=== PATIENT | female | born 1930 | race African-American/Black ===

== ENCOUNTER 2017-05-01 10:12 | Outpatient (CLI) | payer MEDICARE ==
--- NOTE | 2017-05-01 16:06 | MRI ---
LUMBAR SPINE MRI WITHOUT CONTRAST: Date: 05-01-17 Comparison: 06-22-15 History: Lumbar foraminal stenosis, spondylolisthesis of lumbar region, chronic low back pain. Technique: Multiplanar, multisequence MR imaging of the lumbar spine is provided without contrast. FINDINGS: The sagittal STIR imaging demonstrates no focal area of osseous marrow edema. There is focal increased T1 and T2 signal within the L3 vertebral body, new, suggesting interval kyp hoplasty. Clinical correlation required. There is anterolisthesis of L4 on L5 assuming five lumbar type vertebral bodies, measuring in the 6 mm range, not significantly changed since the 06-22-15 exam. At T10-11 and T11-12 there is disc space narrowing and disc desiccation with disc bulge causing part ial effacement of the ventral thecal sac and mild central canal stenosis. At T10-11 there is mild bi lateral neural foraminal stenosis. At T11-12 there is severe bilateral neural foraminal stenosis. T12-L1: Mild bilateral facet hypertrophy. Intervertebral disc height and signal intensity is within normal limits. No significant central canal stenosis. L1-2: There is disc desiccation and bilateral facet hypertrophy, left greater than right. There is n o significant central canal stenosis. There is mild bilateral neural foraminal stenosis. L2-3: There is prominent facet hypertrophy and hypertrophy of the ligamentum flavum bilaterally. Thi s is a stable finding. There is stable mild central canal stenosis. Moderate bilateral neural forami nal stenosis noted, right greater than left, slightly worsened. L3-4: There is moderate bilateral facet hypertrophy, stable. There is disc space narrowing, disc julio iccation and disc bulge with a right paracentral/right foraminal disc protrusion which causes signif icant right lateral recess stenosis, stable. There is severe right sided neural foraminal stenosis, stable. There is moderate left neural foraminal stenosis, stable. L4-5: There is disc space narrowing and disc desiccation with prominent bilateral facet hypertrophy causing severe bilateral neural foraminal stenosis, stable. Stable mild neural foraminal stenosis. L5-S1: There is disc space narrowing and disc desiccation with bilateral facet hypertrophy and bilat eral neural foraminal stenosis, mild on the right and moderate on the left. No significant central c anal stenosis. There are small T2 hyperintense lesions within the right kidney, not definitely characterized on thi s examination, statistically likely representing cysts. IMPRESSION: Significant multilevel degenerative change as detailed above with multilevel prominent central canal and neural foraminal stenosis. POS: LEANDRO
== END 2017-05-01 10:13 | disposition home or self-care (01) ==
LOC: MRI 10:12
PROVIDERS: ATTEND Specialist
DX: M43.16 Spondylolisthesis, lumbar region (principal); M99.83 Other biomechanical lesions of lumbar region; M47.896 Other spondylosis, lumbar region; M51.36 Other intervertebral disc degeneration, lumbar region; M51.37 Other intervertebral disc degeneration, lumbosacral region; M48.061 Spinal stenosis, lumbar region without neurogenic claudication; M99.52 Intervertebral disc stenosis of neural canal of thoracic region; M51.34 Other intervertebral disc degeneration, thoracic region; M48.04 Spinal stenosis, thoracic region
CPT/HCPCS: 72148

== ENCOUNTER 2018-11-21 08:46 | Inpatient (IN) | payer MEDICARE ==
[2018-11-21] MEDS ORDERED: Ondansetron ODT 4 MG TAB PO PRN (13:34)
[2018-11-21] MEDS ORDERED: Acetaminophen 650 MG Suppository PR PRN (13:34)
[2018-11-21] MEDS ORDERED: Guaifenesin DM 100-10/5 ML UDCUP PO PRN (13:34)
[2018-11-21] MEDS ORDERED: Ondansetron PF 4 MG/2 ML Vial IVP PRN (13:34)
[2018-11-21] MEDS ORDERED: Senokot S 8.6-50 MG TAB PO PRN (13:34)
[2018-11-21 13:41] VITALS: BMI 36.5
[2018-11-21] MEDS ORDERED: Dextrose 5% in Water 1,000 ML IV PRN (13:53)
[2018-11-21] MEDS ORDERED: Dextrose 50% Abboject 50 ML SYRINGE SLOW IVP PRN (13:53)
[2018-11-21 15:45] LABS: Anion Gap 13 mmol/L (10-20); BUN (Urea Nitrogen) 110 mg/dL (9.8-20.1); Calc. Creatinine Clearance 22 mL/min (70-130); Carbon Dioxide 33 mmol/L (23-31); Chloride 97 mmol/L (98-107); Estimated GFR-MDRD 20; Glucose 125 mg/dL (83-110); Potassium 4.1 mmol/L (3.5-5.1); Sodium 139 mmol/L (136-145)
--- NOTE | 2018-11-21 16:33 | ULT ---
Renal ultrasound. HISTORY: 88-year-old with right-sided renal cyst. Multiple longitudinal and transverse images of the kidneys and bladder is obtained using multihertz c urvilinear transducer. Real-time and color flow images are obtained. Both kidneys are of normal contour, axis and size. Right kidney measures 8.9 and left kidney 9.5 cm f rom pole to pole. There is a small cortical cyst seen midpole right kidney measuring 17 x 15 x 17 mm. No other significant abnormality seen. Exam limited due to patient's body habitus. The urinary bladder is unremarkable. IMPRESSION: No evidence of hydronephrosis or definite masses. Transcribed Date/Time: 11/21/2018 4:44 PM
[2018-11-21] MEDS ORDERED: HYDROcodone/Acetaminophen 5/325 mg Tablet PO PRN (17:24)
[2018-11-21] MEDS ORDERED: ALPRAZolam 0.5 MG TAB PO PRN (17:24)
[2018-11-21] MEDS ORDERED: Levalbuterol HCl 1.25 MG/0.5 ML NEB NEB PRN (17:24)
[2018-11-21] MEDS ORDERED: Albuterol Sulfate 1.25 MG/3 ML NEB NEB PRN (17:24)
[2018-11-21] MEDS ORDERED: Ferrous Sulfate 325 MG TAB PO PRN (17:24)
[2018-11-21] MEDS ORDERED: Furosemide 40 MG/4 ML VIAL SLOW IVP SCH (18:30)
--- NOTE | 2018-11-21 18:55 | CON ---
DATE OF CONSULTATION: REASON FOR CONSULTATION: This is a Nephrology consult for elevated creatinine. Please note, this is a Nephrology consult. HISTORY OF PRESENT ILLNESS: This is an 88-year-old female, who was admitted to the hospital for congestive heart failure and the patient's baseline creatinine was 1.5 a few days ago, which increased to 2.8, so I was consulted. The patient can give no further detailed history. PAST MEDICAL HISTORY: Significant for hypertension, chronic kidney disease, history of type 2 diabetes mellitus, GERD, history of hyperlipidemia, history of carpal tunnel surgery, history of mitral valve repair, appendectomy, cholecystectomy, mitral valve repair, . FAMILY HISTORY: Negative for ESRD. ALLERGIES: REVIEWED. MEDICATIONS: Home medication list reviewed. Hospital medication list reviewed. REVIEW OF SYSTEMS: A 15-point review of systems was performed and negative except for positives noted above. GENERAL: HEAD: NECK: No swelling or lumps. NOSE: No epistaxis or discharge. EYES: No diplopia or pain. RESPIRATORY: CARDIOVASCULAR: GASTROINTESTINAL: /METER AND REGULATOR SHOP SUPERVISOR: MUSCULOSKELETAL: No joint pain. NEUROPSYCHIATRIC SYSTEMS: No suicidal ideation. No ideation. SKIN: Denies any rash or ulcer. CONSTITUTIONAL: No fever or chills. PHYSICAL EXAMINATION: CONSTITUTIONAL: The patient is awake and alert. VITAL SIGNS: Afebrile, pulse 69, breathing 16, and blood pressure was 125/50. GENERAL APPEARANCE AND MENTAL STATUS: Fair. HEAD/NECK: Normocephalic. Atraumatic. EYES: EOMI. No deformity. EARS: Clear. No ulcers. NOSE: Intact. No lesions. MOUTH: Clear. No discharge. THROAT: Clear. No exudate. LUNGS: Clear. No crackles. CARDIAC: S1, S2. No rub. ABDOMEN: Benign. Bowel sounds positive. GENITALIA/RECTUM: Laureano absent. BACK/EXTREMITIES: Edema 0+. NEUROLOGICAL: Alert and motor intact. SKIN: LYMPHATICS: LABORATORY DATA: Labs reviewed. ASSESSMENT AND PLAN: Acute kidney injury with chronic kidney disease stage 4 due to cardiorenal syndrome. We will hold diuretics. We will follow renal function closely. Anemia, stable. Medication based on GFR appropriate. No indication for dialysis at this time. Job ID: [id number]
--- NOTE | 2018-11-21 19:35 | CON ---
DATE OF CONSULTATION: 11/21/2018 REASON FOR CONSULTATION: Heart failure. PRIMARY HEEL REDUCER: Dr. Balderas. HISTORY OF PRESENT ILLNESS: Ms. Barraza is a very pleasant 88-year-old female, who comes to the hospital for worsening creatinine and worsening lower extremity edema. She has a history of chronic diastolic heart failure. She was admitted at the [facility] about a month ago. She was diuresed. At that time, she had a supratherapeutic INR 11. She is on warfarin for history of atrial fibrillation. She was discharged to a swing bed in [place] and Dr. Al her primary care doctor has been taking good care of her over there. Serial blood tests have shown that her creatinine has slowly been creeping up to the point where she started to get short of breath again on her p.o. dose of Lasix, so she was transferred over to the hospital for further care. PAST MEDICAL HISTORY: 1. Hypertension. 2. Hyperlipidemia. 3. Type 2 diabetes. 4. Mild coronary artery disease. 5. Chronic atrial fibrillation status post Maze procedure. 6. Severe mitral regurgitation status post mitral valve ring annuloplasty. 7. Chronic diastolic heart failure. 8. Pulmonary hypertension from right heart catheterization with pulmonary pressures in the 70s. 9. Peripheral vascular disease. 10. Pulmonary embolism in the past. 11. Sleep apnea. 12. Renal cyst. 13. Lower back pain. 14. Chronic anemia on iron supplementation. 15. Obesity. PAST SURGICAL HISTORY: 1. Appendectomy. 2. Cholecystectomy. 3. Mitral ring annuloplasty in February of 2009 showed 23 mm Lamb ring. 4. Left-sided Maze procedure at the time of mitral valve annuloplasty. FAMILY HISTORY: Brother with non-Q wave MIs. Father with lung cancer. Sister with breast cancer. Two brothers with type 2 diabetes. SOCIAL HISTORY: No alcohol, tobacco, or drugs. REVIEW OF SYSTEMS: A 12-point review of systems was done and was all negative unless stated in history of present illness. OUTPATIENT MEDICATIONS: 1. Hydralazine 25 mg p.o. t.i.d. 2. Warfarin 7.5 mg a day. 3. Simvastatin 20 mg at bedtime. 4. Sertraline 100 mg a day. 5. Potassium chloride 10 mEq a day. 6. Protonix 40 mg a day. 7. Benicar 20 mg a day. 8. Xopenex. 9. Latanoprost. 10. Isosorbide mononitrate 10 mg b.i.d. 11. Lantus 8 units subcu at bedtime. 12. [place] 5/325 p.r.n. pain. 13. Lasix 40 mg a day. 14. Ferrous sulfate 325 mg b.i.d. 15. Felodipine 2.5 mg a day. 16. Esomeprazole 40 mg a day. 17. Carvedilol 12.5 mg b.i.d. 18. Aspirin 81 a day. 19. Albuterol p.r.n. 20. Tylenol p.r.n. 21. Xanax p.r.n. ALLERGIES: 1. AMBRISENTAN. 2. BOSENTAN. 3. DIPHENHYDRAMINE. 4. ISOSORBIDE DINITRATE. 5. METFORMIN. 6. RIOCIGUAT. 7. SILDENAFIL. 8. TADALAFIL. PHYSICAL EXAMINATION: VITAL SIGNS: Temperature 98.0, pulse 87, respiratory rate 22, saturation 96% on 2 L, and blood pressure 136/63. GENERAL: Awake, alert, oriented x3. No distress. HEENT: Normocephalic and atraumatic. NECK: Supple. LUNGS: Clear. CARDIOVASCULAR: S1 and S2. Irregularly irregular heart rate in the 60s. ABDOMEN: Soft. Positive bowel sounds. EXTREMITIES: 1+ edema. SKIN: Warm and dry. LABORATORY DATA: Laboratory work was reviewed here in the hospital. Sodium 139, potassium 4.1, chloride 97, carbon dioxide of 33, anion gap 13, BUN of 110, creatinine of 2.74, GFR of 20, glucose of 125, calcium 9.0. Most recent blood work at the swing bed was reviewed. Her hemoglobin has been 9.8 down to 8.7 now. INR has been 3.2 today, 2.8 yesterday. Chemistry, her creatinine has trended from 1.26 on admission up to 2.74 now. BUN was 28 on admission up to 110. BNP yesterday was 758. This was in the 1000 range on admission. EKG was reviewed. Renal ultrasound was reviewed. ASSESSMENT/PLAN: 1. Acute on chronic diastolic heart failure. 2. Pulmonary hypertension. 3. Status post mitral valve ring annuloplasty. 4. Chronic atrial fibrillation, rate controlled. 5. Chronic warfarin use. 6. Recent supratherapeutic INR normal now. 7. Mild coronary artery disease. PLAN: We will give her one dose of Lasix as more than likely she is reaccumulating some fluid. Depending on how she reacts to this and what the echocardiogram shows, we will decide on further therapies. If she does not respond to IV Lasix and this is all cardiorenal, she may need a Milrinone drip to improve her pulmonary status as well as forward flow. At this time, hopefully IV Lasix will do the trick. Thank you for letting me to participate in the care of your patient. We will follow. Job ID: [id number]
--- NOTE | 2018-11-21 19:46 | RAD ---
PORTABLE AP CHEST X-RAY: 11/21/18 HISTORY: Shortness of breath. COMPARISON: 09/01/16. FINDINGS: Postsurgical changes related to median sternotomy and cardiac valve replacement are again noted. The cardiac silhouette is enlarged. Pulmonary vasculature is mildly increased. There is mild elevation ri ght hemidiaphragm. Osteopenia is present. IMPRESSION: 1. Cardiomegaly with pulmonary vasculature mildly increased although accentuated by the techniqu e of the exam. 2. Osteopenia. POS: RUDY
--- NOTE | 2018-11-21 20:11 | HP ---
PRIMARY CARE PHYSICIAN: Dr. Al. CHIEF COMPLAINT: Fluid retention. HISTORY OF PRESENT ILLNESS: This is an 88-year-old female with a known history of diastolic congestive heart failure, pulmonary artery hypertension, on home O2, and atrial fibrillation, on chronic Coumadin also with previous pulmonary embolism, on chronic Coumadin, who is directly admitted here from swing bed in [place]. The patient was hospitalized at [facility] in the last month for 5 days for congestive heart failure exacerbation. She was diuresed and then discharged to [facility] for physical therapy due to deconditioning. Dr. Al has been taking care of her there. He stated that he has had trouble continuing her diuresis there and had to add metolazone, but the patient was continuing to retain fluid. Then, the patient had increased creatinine there noted over the last couple of days. He is concerned about cardiorenal syndrome, unresponsive to diuretics and so admitted her over here. He tried to send her to [facility], but they are out of beds. The patient currently is saturating well on her normal home oxygen. She reports some shortness of breath with exertion, but says she is a lot better than when she went into the [facility] originally. She denies drinking a lot of fluid, though looking through her records at [place], the last couple of days, she has had over 2000 mL per day of oral fluids. She has had a couple of days where she had more out than in, but then over the last couple of days, she has had more in than out. There was a jump in her weight from yesterday to today of 4 pounds noted in [place] records, although when we weighed her here when she got here, she was still at 219 pounds, which is what she weighed a couple of days ago at [place]. The patient reports that her lower extremity edema is significantly better than it was in [facility]. No other specific complaints. PAST MEDICAL HISTORY: 1. Chronic diastolic congestive heart failure. 2. Coronary artery disease. 3. Previous mitral valve repair. 4. Pulmonary hypertension. 5. Previous pulmonary embolism. 6. Paroxysmal atrial fibrillation, rate controlled. 7. Hypertension. 8. Hyperlipidemia. 9. Diabetes mellitus type 2, on a small dose of insulin daily. 10. Obstructive sleep apnea, on nighttime CPAP. 11. Chronic kidney disease, stage 3. PAST SURGICAL HISTORY: Mitral valve repair. SOCIAL HISTORY: The patient denies tobacco, alcohol, or illicit drug use. She is a , lives with her daughter, Angle Acosta, who is present at the bedside. ALLERGIES: 1. LETAIRIS. 2. TRACLEER. 3. BENADRYL. 4. ISOSORBIDE. 5. METFORMIN. 6. ADEMPAS. 7. SILDENAFIL. 8. TADALAFIL. CURRENT MEDICATIONS: 1. Acetaminophen as needed. 2. Albuterol sulfate neb as needed. 3. Xanax 0.25 mg every 24 hours as needed. 4. Aspirin 81 mg daily. 5. Atorvastatin 10 mg at night. 6. Debrox one drop in left ear twice a day. 7. Carvedilol 12.5 mg twice a day. 8. Felodipine 2.5 mg daily. 9. Ferrous sulfate 325 mg twice a day. 10. Fluconazole nasal spray daily. 11. Furosemide 40 mg twice a day. 12. Hydralazine 50 mg 3 times a day. 13. Hydrocodone as needed. 14. Lantus 10 units subcu at night, decreased to 8 units subcu at night while in the hospital recently. 15. Isosorbide mononitrate 10 mg twice a day. 16. Latanoprost one drop in each eye at night. 17. Imodium as needed. 18. Loratadine 10 mg daily. 19. Metolazone previously on 5 mg Monday, Monday, and Monday, discontinued today. 20. Benicar 20 mg daily. 21. Protonix 40 mg daily. 22. Potassium chloride 10 mEq daily. 23. Prednisone given for the last 2 to 3 days for an effusion in her ear. 24. Sertraline 100 mg daily. 25. Warfarin 7.5 mg at night. REVIEW OF SYSTEMS: CONSTITUTIONAL: No fevers, no chills. EYES: No double vision or blurred vision. ENT: No congestion or drainage. She has had a little bit of sore throat. CARDIOVASCULAR: No chest pain. No palpitations or racing heart. PULMONARY: She has had chronic cough for some time now, production of little bit of sputum, not necessarily worse recently. She has shortness of breath with exertion as per HPI. GASTROINTESTINAL: She had some little midepigastric abdominal pain on and off for the last few days. No nausea or vomiting. She was not having bowel movements until today when she had a very large bowel movement. No diarrhea. GENITOURINARY: No dysuria or hematuria. MUSCULOSKELETAL: She has chronic back pain. No other musculoskeletal complaints. SKIN: No rashes or lesions noted. NEUROLOGIC: No numbness, tingling, or focal weakness. PHYSICAL EXAMINATION: VITAL SIGNS: Blood pressure 125/58, pulse 59, respirations 22, O2 saturation 98% on 2 L, and temperature 97.8. GENERAL: This is a well-developed, well-nourished female, in no acute distress, on 2 L of oxygen. HEENT: Pupils are equal, round, and reactive to light. Oropharynx is clear without lesions, erythema, or exudate. NECK: Supple. No lymphadenopathy. No thyroid nodules or enlargement. She has massive right jugular venous distention, and she has mild on the left. CARDIOVASCULAR: Regular rate and rhythm. No murmurs, rubs, or gallops. LUNGS: The patient has occasional crackle in bilateral bases, but otherwise good air movement throughout. No increased work of breathing. No wheezing. STOMACH: Soft, nontender to palpation. Normoactive bowel sounds. No hepatosplenomegaly or other masses. EXTREMITIES: No clubbing or cyanosis. She has trace bilateral lower extremity edema. This is noted to be markedly better than when she was in the hospital per the daughter, who is at the bedside. SKIN: No rashes or other lesions noted. NEUROLOGIC: She has intact strength and sensation in all extremities. No facial droop noted. LABORATORY DATA: Done last night, her CMP showed chloride of 97, BUN of 101, creatinine of 2.8. Her previous BUN had been anywhere between 20 and 40. It jumped from 23rd of last month to when it was checked last night, and creatinine has jumped over the last few days from 1.6 up to 2.8, glucose of 188. The rest of the CMP was normal. Brain natriuretic peptide was elevated at 758, checked today. Previously, it had been in the 200 to 300s. Our most recent check though in our system was from 2018. CBC done yesterday shows normal white blood cell count, hemoglobin of 8.7, hematocrit of 28.6. These are stable from previous checks. Does have a large MCV of 105. Platelet count is normal. Coagulation profile shows INR 3.2, up from 2.8 yesterday. Urinalysis done yesterday showed trace leukocyte esterase, but no white blood cells and no bacteria. There was a urine urea checked, it was 359, urine creatinine is 66. The patient had abdominal x-ray done yesterday. This showed no acute findings except for a moderate amount of fecal material seen in the right colon. ASSESSMENT: 1. Acute on chronic renal failure typically stage 3. The patient appears to have volume contraction, most likely has actually been over diuresed with metolazone. I do not see any evidence on her exam that her being in volume overload or having retained multiple liters of fluid over the last day. I suspect that the scale was incorrect and that she actually was still just at 219 pounds that she had measured a few days ago. It does not look like the patient will be able to tolerate the metolazone. We will discontinue that. We will also hold the Lasix today, but likely resume tomorrow. We will have Dr. Reveles come and evaluate the patient and see what he thinks about her volume status and her kidney function. 2. Diastolic congestive heart failure with recent exacerbation. She actually does not appear in fluid overload to me, and per the daughter, it is much better than she was in the hospital. I think most likely she has actually been diuresed well and actually over diuresed. We will hold diuretics today and reassess in the morning, likely restart her Lasix at that time. The patient has been taking in a good amount of fluid orally if what is recorded from [place] is accurate, so we will need to have her decrease that. We will put her on a 1500 mL restricted diet and strict I's and O's. I will have Dr. Maria come by and evaluate her and see if he has any other recommendations from her heart failure standpoint. 3. Chronic anticoagulation with supratherapeutic INR. We will hold Coumadin today and recheck in the morning. 4. Diabetes mellitus type 2. We will resume the patient's Lantus at night, and we will put her on insulin sliding scale along with q.a.c. and h.s. blood sugars and give her a diabetic diet. 5. Epigastric abdominal pain, possibly reflux or gastritis related to her recent prednisone. We will discontinue the prednisone, and we will start her on Pepcid twice a day. If this does not improve her symptoms, we will switch to a PPI. 6. Deep venous thrombosis prophylaxis. The patient is already on Coumadin. 7. Pulmonary hypertension with chronic respiratory failure and hypoxia. We will continue the patient's home 2 L of oxygen. 8. Obstructive sleep apnea. We will continue CPAP at night. 9. Code status. I did discuss this with the patient. She is a full code. Should she be incapacitated, her daughter would be her medical decision maker, her name is Anglealyse Acosta. Job ID: [id number]
[2018-11-21] MEDS ORDERED: Insulin Glargine 8 UNITS in Pre-Filled Syringe 1 EACH SC SCH (21:00)
[2018-11-21] MEDS ORDERED: Famotidine 20 MG TAB PO SCH (21:00)
[2018-11-21] MEDS: hydrALAZINE 25 MG TAB PO SCH (21:29)
[2018-11-21] MEDS: Isosorbide Mononitrate 20 MG TAB PO SCH (21:30)
[2018-11-21] MEDS: Atorvastatin Calcium 10 MG TAB PO SCH (21:30)
[2018-11-21] MEDS: Famotidine 20 MG TAB PO SCH (21:30)
[2018-11-21] MEDS: Latanoprost 0.005% Ophth Soln 2.5 ml Bottle EA EYE SCH (21:32)
[2018-11-21] MEDS: Carvedilol 6.25 MG TAB PO SCH (21:32)
[2018-11-21] MEDS: Insulin Glargine 8 UNITS in Pre-Filled Syringe 1 EACH SC SCH (21:46)
[2018-11-22 04:56] LABS: Anion Gap 13 mmol/L (10-20); BUN (Urea Nitrogen) 112 mg/dL (9.8-20.1); Calc. Creatinine Clearance 25 mL/min (70-130); Calcium 8.6 mg/dL (7.8-10.44); Carbon Dioxide 31 mmol/L (23-31); Chloride 97 mmol/L (98-107); Estimated GFR-MDRD 23; Glucose 67 mg/dL (83-110); Sodium 137 mmol/L (136-145)
--- NOTE | 2018-11-22 07:42 | PDOC.PN ---
- Subjective Encounter Start Date: 11/22/18 Encounter Start Time: 09:50 Subjective: Patient sleepy this AM, no other complaints. Diuresed some overnight. -: No chest pain. No SOB. No cough. - Objective Resuscitation Status - Order Detail: 11/21/18 13:34 Resuscitation Status Routine Resuscitation Status: FULL: Full Resuscitation Discussed with: Eleuterio TYSON Reviewed: Yes Vital Signs & Weight: Vital Signs (12 hours) Temp Pulse Resp BP BP BP Pulse Ox 11/22/18 03:45 97.9 F 57 L 22 H 124/57 L 99 11/21/18 21:32 144/65 H 11/21/18 21:29 53 L 144/65 H 11/21/18 21:00 98.0 F 53 L 20 144/65 H 97 11/21/18 20:00 97 Weight Weight 219 lb 11.2 oz I&O: 11/21/18 11/22/18 11/23/18 06:59 06:59 06:59 Intake Total 600 Output Total 1150 Balance -550 Result Diagrams: 11/22/18 08:57 11/22/18 04:21 Additional Labs: Accuchecks 11/22/18 11/21/18 11/21/18 05:38 21:37 17:27 POC Glucose 78 143 H 144 H Phys Exam - Physical Examination Constitutional: NAD HEENT: moist MMs Respiratory: no wheezing, no rales, no rhonchi Cardiovascular: RRR Gastrointestinal: soft, positive bowel sounds mild edema bilateral LE Neurological: non-focal Psychiatric: normal affect, A&O x 3 Dx/Plan (1) Acute on chronic diastolic (congestive) heart failure Code(s): I50.33 - ACUTE ON CHRONIC DIASTOLIC (CONGESTIVE) HEART FAILURE Status : Acute (2) Cardiorenal syndrome with renal failure Code(s): I13.10 - HYP HRT & CHR KDNY DIS W/O HRT FAIL, W STG 1-4/UNSP CHR KDNY Status: Acute Comment: stage 3, improved a bit today (3) Coronary artery disease Code(s): I25.10 - ATHSCL HEART DISEASE OF [place] CORONARY ARTERY W/O ANG PCTRS Status: Chronic (4) Pulmonary artery hypertension Code(s): I27.21 - SECONDARY PULMONARY ARTERIAL HYPERTENSION Status: Chronic (5) Hx pulmonary embolism Code(s): Z86.711 - PERSONAL HISTORY OF PULMONARY EMBOLISM Status: Chronic (6) Paroxysmal atrial fibrillation Code(s): I48.0 - PAROXYSMAL ATRIAL FIBRILLATION Status: Chronic Comment: on Coumadin, pharmacy dosing (7) Hypertension Code(s): I10 - ESSENTIAL (PRIMARY) HYPERTENSION Status: Chronic Qualifiers: Hypertension type: essential hypertension Qualified Code(s): I10 - Essential (primary) hypertension (8) Hyperlipidemia Code(s): E78.5 - HYPERLIPIDEMIA, UNSPECIFIED Status: Chronic (9) Diabetes mellitus type 2, insulin dependent Code(s): E11.9 - TYPE 2 DIABETES MELLITUS WITHOUT COMPLICATIONS; Z79.4 - CATERING TRUCK OPERATOR (CURRENT) USE OF INSULIN Status: Chronic (10) TONJA on CPAP Code(s): G47.33 - OBSTRUCTIVE SLEEP APNEA (ADULT) (PEDIATRIC); Z99.89 - DEPENDENCE ON OTHER ENABLING MACHINES AND DEVICES Status: Chronic - Plan cont current plan of care, PT/OT, DVT proph w/SCDs continue diuresis as tolerated * . - Discharge Day Encounter end time: 10:00
[2018-11-22] MEDS: Isosorbide Mononitrate 20 MG TAB PO SCH ×2 (08:37→20:33)
[2018-11-22] MEDS: Carvedilol 6.25 MG TAB PO SCH ×3 (08:37→20:35)
[2018-11-22] MEDS: hydrALAZINE 25 MG TAB PO SCH ×3 (08:37→20:34)
[2018-11-22] MEDS: Aspirin 81 mg Enteric Coated Tablet PO SCH (08:38)
[2018-11-22] MEDS ORDERED: FELODIPINE 2.5 MG PO SCH (09:00)
[2018-11-22 09:15] LABS: INR-International Normal Ratio 2.7; Prothrombin Time 28.4 SEC (12.0-14.7)
[2018-11-22 09:26] LABS: Hemoglobin 8.9 g/dL (12.0-16.0); Mean Corpuscular HGB CONC 31.9 g/dL (32.0-36.0); Mean Corpuscular Hemoglobin 33.4 pg (27.0-31.0); Platelet Count 172 thou/uL (130-400); RBC Distribution Width 12.8 % (11.5-14.5); Red Blood Cell (RBC) Count 2.65 mill/uL (4.20-5.40); White Blood Cell (WBC) Count 5.4 thou/uL (4.8-10.8)
[2018-11-22 09:27] LABS: #Eosinphils 0.3 thou/uL (0.0-0.7); #Lymphocytes 1.3 thou/uL (1.20-3.40); #Monocytes 0.7 thou/uL (0.11-0.59); #Neutrophils 3.1 thou/uL (1.40-6.50); %Basophils 0.6 % (0.0-1.0); %Eosinophils 5.2 % (0.0-10.0); %Lymphocytes 23.3 % (21.0-51.0); %Monocytes 13.8 % (0.0-10.0); %Neutrophils 57.1 % (42.0-75.0)
[2018-11-22] MEDS ORDERED: Furosemide 40 MG/4 ML VIAL SLOW IVP SCH (09:45)
[2018-11-22 09:55] LABS: Hypochromia MODERATE=16-30 cells (100X) (0-5/hpf); MDiff Complete? YES; Macrocytosis SLIGHT = 6-15 cells (100X) (0-5/hpf); Platelet Morphology Comment Appears Adequate; Reflex for Review?? YES
[2018-11-22] MEDS: Warfarin Sodium 3 MG TAB PO SCH ×2 (10:40→15:27)
--- NOTE | 2018-11-22 12:41 | PRG ---
DATE OF SERVICE: 11/22/2018 SUBJECTIVE: An 88-year-old female being seen for acute kidney. The patient denied nausea and chest pain. OBJECTIVE: CONSTITUTIONAL: The patient is awake and alert. VITAL SIGNS: The patient is afebrile, pulse 80, breathing 16, blood pressure 128/64. GENERAL APPEARANCE AND MENTAL STATUS: Fair. HEAD/NECK: Normocephalic. Atraumatic. EYES: EOMI. No deformity. EARS: Clear. No ulcers. NOSE: Intact. No lesions. MOUTH: Clear. No discharge. THROAT: Clear. No exudate. LUNGS: Clear. No crackles. CARDIAC: S1, S2. No rub. ABDOMEN: Benign. Bowel sounds positive. GENITALIA/RECTUM: Laureano absent. BACK/EXTREMITIES: Edema 0+. NEUROLOGICAL: Alert and motor intact. SKIN: LYMPHATICS: LABORATORY DATA: creatinine 2.4. ASSESSMENT: 1. Acute kidney injury, improved. 2. Chronic kidney disease stage 4, stable. 3. . 4. Anemia stable. 5. No indication for dialysis. Job ID: [id number]
[2018-11-22] MEDS: Furosemide 40 MG/4 ML VIAL SLOW IVP SCH (14:31)
[2018-11-22] MEDS: Acetaminophen 325 MG TAB PO PRN (15:26)
--- NOTE | 2018-11-22 19:10 | PDOC.CTH ---
Cardiology Progress Note - Subjective Edema and creatinine improved with IV diuresis. She has no new issues otherwise. - Objective Vital Signs Temp Pulse Pulse Pulse Pulse Resp BP 11/22/18 14:49 97.6 F 58 L 18 11/22/18 14:40 53 L 53 L 11/22/18 14:31 54 L 128/64 11/22/18 11:19 128/64 11/22/18 11:18 80 11/22/18 11:00 97.1 F L 80 76 121 H 76 18 11/22/18 08:38 56 L 11/22/18 08:37 56 L 128/64 11/22/18 08:00 BP BP BP BP BP Pulse Ox Pulse Ox 11/22/18 14:49 123/63 95 11/22/18 14:40 122/54 L 141/63 H 11/22/18 14:31 11/22/18 11:19 11/22/18 11:18 11/22/18 11:00 133/62 133/60 166/79 H 133/60 94 L 97 11/22/18 08:38 11/22/18 08:37 11/22/18 08:00 91 L Pulse Ox Pulse Ox 11/22/18 14:49 11/22/18 14:40 97 11/22/18 14:31 11/22/18 11:19 11/22/18 11:18 11/22/18 11:00 96 90 L 11/22/18 08:38 11/22/18 08:37 11/22/18 08:00 Weight 219 lb 11.2 oz 11/21/18 11/22/18 11/23/18 06:59 06:59 06:59 Intake Total 600 640 Output Total 1150 1150 Balance -550 -510 - Physical Examination General/Neuro: NAD Neck: no JVD present Lungs: CTA, unlabored respirations Heart: RRR Abdomen: NT/ND Extremities: + edema B (1+) - Telemetry Telemetry Rhythm: Afib HR 70's. - Labs Result Diagrams: 11/22/18 08:57 11/22/18 04:21 - Assessment/Plan 1. Acute on chronic diastolic CHF 2. Severe MR 3. Severe TR 4. Chronic afib 5. GUI on CKD, cardiorenal. 6. Anemia. PLAN: - Continue IV diuresis. - Continue other meds.
[2018-11-22] MEDS: Famotidine 20 MG TAB PO SCH (20:34)
[2018-11-22] MEDS: Atorvastatin Calcium 10 MG TAB PO SCH (20:34)
[2018-11-22] MEDS: Insulin Glargine 8 UNITS in Pre-Filled Syringe 1 EACH SC SCH (20:35)
[2018-11-22] MEDS: Latanoprost 0.005% Ophth Soln 2.5 ml Bottle EA EYE SCH (20:36)
[2018-11-23 05:19] LABS: INR-International Normal Ratio 2.5
[2018-11-23] MEDS: Furosemide 40 MG/4 ML VIAL SLOW IVP SCH ×2 (06:35→14:53)
[2018-11-23] MEDS ORDERED: Senokot S 8.6-50 MG TAB PO PRN (06:57)
[2018-11-23 08:00] LABS: Albumin 3.5 g/dL (3.4-4.8); BUN (Urea Nitrogen) 100 mg/dL (9.8-20.1); BUN/Creatinine Ratio 53.76; Calc. Creatinine Clearance 33 mL/min (70-130); Calcium 9.2 mg/dL (7.8-10.44); Estimated GFR-MDRD 31; Glucose 72 mg/dL (83-110); Magnesium 2.6 mg/dL (1.6-2.6); Phosphorus 4.5 mg/dL (2.3-4.7)
[2018-11-23 08:09] LABS: Anion Gap 16 mmol/L (10-20); Carbon Dioxide 32 mmol/L (23-31); Chloride 97 mmol/L (98-107); Potassium 3.9 mmol/L (3.5-5.1); Sodium 141 mmol/L (136-145)
[2018-11-23] MEDS: Calcium Carbonate + Vit D 1 TAB PO SCH ×2 (08:55→17:22)
[2018-11-23] MEDS: Aspirin 81 mg Enteric Coated Tablet PO SCH (08:56)
[2018-11-23] MEDS: Senokot S 8.6-50 MG TAB PO SCH ×3 (08:57→20:27)
[2018-11-23] MEDS: Isosorbide Mononitrate 20 MG TAB PO SCH ×2 (08:57→20:27)
[2018-11-23] MEDS: hydrALAZINE 25 MG TAB PO SCH ×3 (08:58→20:26)
[2018-11-23] MEDS: Carvedilol 6.25 MG TAB PO SCH ×2 (10:08→20:26)
--- NOTE | 2018-11-23 12:55 | PRG ---
DATE OF SERVICE: 11/23/2018 SUBJECTIVE: An 88-year-old female being seen for acute kidney injury. The patient denies any nausea, vomiting, or chest pain. OBJECTIVE: CONSTITUTIONAL: The patient is awake, alert. GENERAL APPEARANCE AND MENTAL STATUS: Fair. VITAL SIGNS: Afebrile, pulse 80, breathing 16, blood pressure 156/70. HEAD/NECK: Normocephalic. Atraumatic. EYES: EOMI. No deformity. EARS: Clear. No ulcers. NOSE: Intact. No lesions. MOUTH: Clear. No discharge. THROAT: Clear. No exudate. LUNGS: Clear. No crackles. CARDIAC: S1, S2. No rub. ABDOMEN: Benign. Bowel sounds positive. GENITALIA/RECTUM: Laureano absent. BACK/EXTREMITIES: Edema 0+. NEUROLOGICAL: Alert and motor intact. SKIN: LYMPHATICS: LABORATORY DATA: Reviewed. ASSESSMENT AND PLAN: 1. Chronic kidney disease, stage 3, stable. 2. Acute kidney injury due to acute tubular necrosis, improved. 3. Hypertension with anemia, stable. 4. Medications based on GFR, appropriate. Job ID: [id number]
--- NOTE | 2018-11-23 16:24 | PDOC.PN ---
- Subjective Encounter Start Date: 11/23/18 Encounter Start Time: 14:30 Patient seen and examined for CHF/GUI. SOB improving. No fever/chills/CP. No new complaints. No overnight events - Objective Resuscitation Status - Order Detail: 11/21/18 13:34 Resuscitation Status Routine Resuscitation Status: FULL: Full Resuscitation Discussed with: Patient MARBELLA Reviewed: Yes Vital Signs & Weight: Vital Signs (12 hours) Temp Pulse Resp BP Pulse Ox 11/23/18 15:02 98.2 F 67 20 141/62 H 97 11/23/18 12:45 98.0 F 62 20 112/58 L 96 11/23/18 10:08 76 11/23/18 08:55 88 11/23/18 07:18 98.2 F 66 18 163/70 H 97 Weight Weight 219 lb 14.4 oz I&O: 11/22/18 11/23/18 11/24/18 06:59 06:59 06:59 Intake Total 600 840 Output Total 1150 1950 Balance -550 -1110 Result Diagrams: 11/22/18 08:57 11/23/18 07:29 Additional Labs: Accuchecks 11/23/18 11/23/18 11/22/18 11:00 05:22 20:36 POC Glucose 141 H 72 175 H EKG Reviewed by me: Yes (Tele SR) Phys Exam - Physical Examination Constitutional: NAD Respiratory: no wheezing, no rhonchi few rales at bases Cardiovascular: RRR, no rub Gastrointestinal: soft, non-tender, positive bowel sounds Musculoskeletal: no edema Neurological: moves all 4 limbs Dx/Plan - Plan DVT proph w/SCDs IMPRESSION: GUI on CKD 3 due to Cardiorenal syndrome Acute on chronic diastolic heart failure Severe MR/TR Chronic Afib - on anticoag Anemia DM2 Chronic 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 negative: Cough, Dry, Shortness of Breath, Hemoptysis, Pleuritic Pain, Sputum, Wheezing Cardiovascular: negative: chest pain, palpitations, orthopnea, paroxysmal nocturnal dyspnea, edema, light headedness, other - Medications/Allergies Allergies/Adverse Reactions: Allergies Allergy/AdvReac Type Severity Reaction Status Date / Time ambrisentan [From Letairis] Allergy Verified 11/07/18 15:25 bosentan [From Tracleer] Allergy Verified 11/07/18 15:25 diphenhydramine Allergy Nausea Verified 11/07/18 15:27 [From Benadryl] isosorbide [From BiDil] Allergy Verified 11/07/18 15:38 metformin Allergy Nausea Verified 11/07/18 15:28 riociguat [From Adempas] Allergy Verified 11/07/18 15:27 sildenafil [From Revatio] Allergy Verified 11/07/18 15:25 tadalafil [From Adcirca] Allergy Verified 11/07/18 15:25 Medications: Current Medications Acetaminophen (Tylenol) 650 mg PO Q4H PRN PRN Reason: Headache/Fever/Mild Pain (1-3) Last Admin: 11/22/18 15:26 Dose: 650 mg Acetaminophen (Tylenol) 650 mg AK Q4H PRN PRN Reason: Headache/Fever/Mild Pain (1-3) Hydrocodone Bitart/Acetaminophen ([place] 5/325) 2 tab PO Q4H PRN PRN Reason: Moderate Pain (4-6) Albuterol Sulfate (Albuterol Sulfate) 1.25 mg NEB Q6H PRN PRN Reason: SHORTNESS OF BREATH Alprazolam (Xanax) 0.25 mg PO Q24H PRN PRN Reason: Anxiety/Restlessness/Sleep Aspirin (Ecotrin) 81 mg PO DAILY [facility] Last Admin: 11/23/18 08:56 Dose: 81 mg Atorvastatin Calcium (Lipitor) 10 mg PO HS [facility] Last Admin: 11/22/18 20:34 Dose: 10 mg Calcium/Vitamin D (Caltrate 600 + Vit D) 1 tab PO BID-WM [facility] Last Admin: 11/23/18 08:55 Dose: 1 tab Carvedilol (Coreg) 12.5 mg PO BID [facility] Last Admin: 11/23/18 10:08 Dose: 12.5 mg Dextrose/Water (Dextrose 50%) 25 gm SLOW IVP PRN PRN PRN Reason: Hypoglycemia Famotidine (Pepcid) 20 mg PO 2100 [facility] Last Admin: 11/22/18 20:34 Dose: 20 mg Felodipine (Plendil) 2.5 mg PO DAILY [facility] Last Admin: 11/23/18 10:08 Dose: 2.5 mg Ferrous Sulfate (Feosol) 325 mg PO BID-WM PRN PRN Reason: ANEMIA Furosemide (Lasix) 40 mg SLOW IVP 0600,1400 [facility] Last Admin: 11/23/18 14:53 Dose: 40 mg Glucagon (Glucagon) 1 mg IM PRN PRN PRN Reason: Hypoglycemia Guaifenesin/Dextromethorphan (Robitussin Dm) 15 ml PO Q4H PRN PRN Reason: Cough Hydralazine HCl (Apresoline) 25 mg PO TID [facility] Last Admin: 11/23/18 15:02 Dose: 25 mg Dextrose/Water (D5w) 1,000 mls @ 0 mls/hr IV .Q0M PRN PRN Reason: Hypoglycemia Insulin Human Lispro (Humalog) 0 units SC .MILD SLIDING SCALE PRN PRN Reason: Mild Correctional Scale Insulin Human Lispro (Humalog) 0 units SC .BEDTIME SLIDING SC PRN PRN Reason: Bedtime Correctional Scale Isosorbide Mononitrate (Ismo) 10 mg PO BID [facility] Last Admin: 11/23/18 08:57 Dose: 10 mg Latanoprost (Xalatan 0.005% Ophth Soln) 1 drop EA EYE HS [facility] Last Admin: 11/22/18 20:36 Dose: 1 drop Levalbuterol HCl (Xopenex Conc) 1.25 mg NEB Q8H PRN PRN Reason: SHORTNESS OF BREATH Miscellaneous Medication (Pharmacy To Dose) 0 each PO .WARFARIN PRN PRN Reason: LABS Ondansetron HCl (Zofran Odt) 4 mg PO Q6H PRN PRN Reason: Nausea/Vomiting Ondansetron HCl (Zofran) 4 mg IVP Q6H PRN PRN Reason: Nausea/Vomiting Pantoprazole Sodium (Protonix) 40 mg PO DAILY [facility] Last Admin: 11/23/18 08:57 Dose: 40 mg Senna/Docusate Sodium (Senokot S) 1 tab PO BID [facility] Last Admin: 11/23/18 08:57 Dose: 1 tab Senna/Docusate Sodium (Senokot S) 1 tab PO BID PRN PRN Reason: Constipation Sertraline HCl (Zoloft) 100 mg PO DAILY [facility] Last Admin: 11/23/18 08:55 Dose: 100 mg Sodium Chloride (Flush - Normal Saline) 10 ml IVF Q12HR [facility] Last Admin: 11/23/18 10:10 Dose: 10 ml Sodium Chloride (Flush - Normal Saline) 10 ml IVF PRN PRN PRN Reason: Saline Flush Warfarin Sodium (Coumadin) 6 mg PO 1700 [facility] Last Admin: 11/22/18 15:27 Dose: 6 mg
--- NOTE | 2018-11-23 16:56 | PDOC.CTH ---
Cardiology Progress Note - Subjective No new issues. Swelling significantly improved. - Objective Vital Signs Temp Pulse Resp BP Pulse Ox 11/23/18 15:02 98.2 F 67 20 141/62 H 97 11/23/18 12:45 98.0 F 62 20 112/58 L 96 11/23/18 10:08 76 11/23/18 08:55 88 11/23/18 07:18 98.2 F 66 18 163/70 H 97 Weight 219 lb 14.4 oz 11/22/18 11/23/18 11/24/18 06:59 06:59 06:59 Intake Total 600 840 Output Total 1150 1950 Balance -550 -1110 - Physical Examination General/Neuro: alert & oriented x3, NAD Neck: no JVD present Lungs: CTA, unlabored respirations Heart: RRR Abdomen: NT/ND Extremities: + edema B (trace) - Telemetry Telemetry Rhythm: Afib HR 60's. - Labs Result Diagrams: 11/22/18 08:57 11/23/18 07:29 - Assessment/Plan 1. Acute on chronic diastolic CHF 2. Severe MR 3. Severe TR 4. Chronic afib 5. GUI on CKD, cardiorenal. 6. Anemia. PLAN: - Continue IV diuresis. - Improving. - Continue other meds. - Close to being able to be sent back to rehab, probably next 48 hrs.
[2018-11-23] MEDS: Warfarin Sodium 3 MG TAB PO SCH (17:22)
[2018-11-23] MEDS: HumaLOG 300 UNITS/3 ML VIAL SC PRN ×2 (17:22→20:32)
[2018-11-23] MEDS: Atorvastatin Calcium 10 MG TAB PO SCH (20:26)
[2018-11-23] MEDS: Famotidine 20 MG TAB PO SCH (20:26)
[2018-11-23] MEDS: Latanoprost 0.005% Ophth Soln 2.5 ml Bottle EA EYE SCH (20:27)
[2018-11-23] MEDS ORDERED: Insulin Glargine 5 UNITS in Pre-Filled Syringe 1 EACH SC SCH (21:00)
[2018-11-23] MEDS ORDERED: Sodium Chloride For Inhalation 0.9% 3 ML NEB NEB PRN (23:57)
[2018-11-24 06:23] LABS: INR-International Normal Ratio 2.2; Prothrombin Time 24.8 SEC (12.0-14.7)
[2018-11-24] MEDS: Furosemide 40 MG/4 ML VIAL SLOW IVP SCH (06:32)
[2018-11-24 06:46] LABS: Anion Gap 13 mmol/L (10-20); BUN (Urea Nitrogen) 85 mg/dL (9.8-20.1); Calc. Creatinine Clearance 37 mL/min (70-130); Calcium 9.1 mg/dL (7.8-10.44); Carbon Dioxide 36 mmol/L (23-31); Chloride 95 mmol/L (98-107); Estimated GFR-MDRD 36; Glucose 95 mg/dL (83-110); Potassium 3.8 mmol/L (3.5-5.1); Sodium 140 mmol/L (136-145)
[2018-11-24] MEDS: hydrALAZINE 25 MG TAB PO SCH ×3 (09:41→20:40)
[2018-11-24] MEDS: Senokot S 8.6-50 MG TAB PO SCH ×4 (09:41→20:39)
[2018-11-24] MEDS: Carvedilol 6.25 MG TAB PO SCH ×2 (09:41→20:39)
[2018-11-24] MEDS: Aspirin 81 mg Enteric Coated Tablet PO SCH (09:41)
[2018-11-24] MEDS: Isosorbide Mononitrate 20 MG TAB PO SCH ×2 (09:41→20:39)
[2018-11-24] MEDS: Calcium Carbonate + Vit D 1 TAB PO SCH ×2 (09:42→18:21)
--- NOTE | 2018-11-24 11:27 | PRG ---
DATE OF SERVICE: 11/24/2018 SUBJECTIVE: This is an 88-year-old female, being seen for acute kidney injury. The patient denied nausea, vomiting, or chest pain. OBJECTIVE: CONSTITUTIONAL: The patient is awake and alert. VITAL SIGNS: Afebrile, pulse 75, breathing 16, and blood pressure 160/103. GENERAL APPEARANCE AND MENTAL STATUS: Fair. HEAD/NECK: Normocephalic. Atraumatic. EYES: EOMI. No deformity. EARS: Clear. No ulcers. NOSE: Intact. No lesions. MOUTH: Clear. No discharge. THROAT: Clear. No exudate. LUNGS: Clear. No crackles. CARDIAC: S1, S2. No rub. ABDOMEN: Benign. Bowel sounds positive. GENITALIA/RECTUM: Laureano absent. BACK/EXTREMITIES: Edema 0+. NEUROLOGICAL: Alert and motor intact. SKIN: LYMPHATICS: LABORATORY RESULTS: Reviewed. ASSESSMENT AND PLAN: 1. Stage 3 chronic kidney disease, stable. 2. Acute kidney injury due to acute tubular necrosis, improved. 3. Hypertension, stable. 4. Anemia, stable. 5. Medication based on GFR appropriate. Job ID: [id number]
[2018-11-24] MEDS: HumaLOG 300 UNITS/3 ML VIAL SC PRN ×2 (12:12→20:41)
--- NOTE | 2018-11-24 12:19 | PDOC.PN ---
- Subjective Encounter Start Date: 11/24/18 (f/u dizziness) Encounter Start Time: 12:16 Subjective: Pt c/o feeling dizzy - current bp 120's systolic. Also c/o nausea for whic -: she received zofran - Objective Resuscitation Status - Order Detail: 11/21/18 13:34 Resuscitation Status Routine Resuscitation Status: FULL: Full Resuscitation Discussed with: Patient Vital Signs & Weight: Vital Signs (12 hours) Temp Pulse Resp BP BP BP Pulse Ox 11/24/18 09:42 60 168/103 H 11/24/18 09:41 60 168/103 H 11/24/18 08:00 97.2 F L 60 18 160/103 H 98 11/24/18 04:00 98.7 F 56 L 18 135/58 L 96 Weight Weight 215 lb 8 oz I&O: 11/23/18 11/24/18 11/25/18 06:59 06:59 06:59 Intake Total 840 1440 Output Total 1950 3030 Balance -1110 -1590 Result Diagrams: 11/22/18 08:57 11/24/18 05:51 Additional Labs: Accuchecks 11/24/18 11/24/18 11/23/18 10:48 05:33 20:31 POC Glucose 171 H 99 255 H 11/23/18 17:04 POC Glucose 186 H EKG Reviewed by me: Yes (tele - sinus 50-60's and pac's) Phys Exam - Physical Examination Constitutional: NAD Respiratory: no wheezing, no rhonchi left lower base - rales. Cardiovascular: RRR 3/6 SHANTA throughout Gastrointestinal: soft, non-tender, positive bowel sounds Non-pitting edema bilateral LE Dx/Plan (1) Acute on chronic diastolic (congestive) heart failure Code(s): I50.33 - ACUTE ON CHRONIC DIASTOLIC (CONGESTIVE) HEART FAILURE Status : Acute (2) Coronary artery disease Code(s): I25.10 - ATHSCL HEART DISEASE OF [place] CORONARY ARTERY W/O ANG PCTRS Status: Chronic (3) Diabetes mellitus type 2, insulin dependent Code(s): E11.9 - TYPE 2 DIABETES MELLITUS WITHOUT COMPLICATIONS; Z79.4 - BACKER UP (CURRENT) USE OF INSULIN Status: Chronic (4) Hyperlipidemia Code(s): E78.5 - HYPERLIPIDEMIA, UNSPECIFIED Status: Chronic Qualifiers: Hyperlipidemia type: unspecified Qualified Code(s): E78.5 - Hyperlipidemia , unspecified (5) Hypertension Code(s): I10 - ESSENTIAL (PRIMARY) HYPERTENSION Status: Chronic Qualifiers: Hypertension type: essential hypertension Qualified Code(s): I10 - Essential (primary) hypertension (6) Paroxysmal atrial fibrillation Code(s): I48.0 - PAROXYSMAL ATRIAL FIBRILLATION Status: Chronic Comment: on Coumadin, pharmacy dosing (7) Pulmonary artery hypertension Code(s): I27.21 - SECONDARY PULMONARY ARTERIAL HYPERTENSION Status: Chronic (8) Mitral regurgitation Status: Chronic Qualifiers: Cardiac valve disease etiology: etiology unspecified Qualified Code(s): I34.0 - Nonrheumatic mitral (valve) insufficiency (9) Tricuspid regurgitation Code(s): I07.1 - RHEUMATIC TRICUSPID INSUFFICIENCY Status: Chronic Qualifiers: Cardiac valve disease etiology: etiology unspecified Qualified Code(s): I07.1 - Rheumatic tricuspid insufficiency - Plan * Appreciate Cardiology & Nephrology directing medications/diuresis * Given that pt is dizzy and bp lower than she is likely used to - will change the lasix to once daily and monitor * continue home meds as currently ordered * Consult Pall care to assist with goals of care as pt has been in the hospital twice in a short period of time * * dvt prophy - full dose warfarin and therapeutic * gi prophy - on home PPI and famotidine started on admission due to concern pt was recently on prednisone and having GI side effects. Will continue this * code status full * * pt remains at high risk in current condition and at high risk for recurrent admissions.
--- NOTE | 2018-11-24 14:59 | PDOC.CTH ---
Cardiology Progress Note - Subjective The pt seen and examined. No overnight events. No cardiac complaints. - Objective Vital Signs Temp Pulse Resp BP BP BP Pulse Ox 11/24/18 12:00 96.7 F L 57 L 18 156/67 H 98 11/24/18 09:42 60 168/103 H 11/24/18 09:41 60 168/103 H 11/24/18 08:00 97.2 F L 60 18 160/103 H 98 11/24/18 04:00 98.7 F 56 L 18 135/58 L 96 Weight 215 lb 8 oz 11/23/18 11/24/18 11/25/18 06:59 06:59 06:59 Intake Total 840 1440 Output Total 1950 3030 Balance -1110 -1590 - Physical Examination General/Neuro: alert & oriented x3 Neck: no JVD present Lungs: other: (diminished at bases) Heart: RRR Abdomen: soft Extremities: other: (No edema) - Telemetry Telemetry Rhythm: SR with PACs - Labs Result Diagrams: 11/22/18 08:57 11/24/18 05:51 - Assessment/Plan 1. Acute on chronic diastolic CHF - Stable with Coreg 12.5mg BID, Lasix 40mg IV daily. Not on MARY/ARB due to hx of CKD 2. Severe MR with s/p MV annuloplasty in 2008 3. Severe TR 4. Chronic afib - well controlled HR with Coreg 12.5mg BID. On Coumadin for Afib and hx of PE. 5. GUI on CKD, cardiorenal. 6. HTN - Will increase Hydralazine from 25mg to 50mg TID; 7. Mild CAD - on bblocker, statin, and ASA 8. Pulm. HTN 9. PE in past 10. Sleep Apnea 11. Chronic Anemia Anemia. * Plan to be back to rehab. <Addendum> Due to complaint of dizziness with SBP 120s, Will decrease Hydralazine to 25mg BID. Pt. seen and eval. by me. I agree with the A/P by the [employer]. Mild edema. Bibasilar mild rales. RRR. gjmays Review of Systems - Review of Systems Constitutional: reports: no symptoms reported EENTM: reports: no symptoms reported Respiratory: reports: no symptoms reported Cardiac (ROS): reports: no symptoms reported ABD/GI: reports: no symptoms reported : reports: no symptoms reported
[2018-11-24] MEDS ORDERED: hydrALAZINE 25 MG TAB PO SCH ×2 (15:30→21:00)
[2018-11-24] MEDS: Warfarin Sodium 7.5 MG TAB PO SCH (18:22)
[2018-11-24] MEDS: Famotidine 20 MG TAB PO SCH (20:39)
[2018-11-24] MEDS: Latanoprost 0.005% Ophth Soln 2.5 ml Bottle EA EYE SCH (20:40)
[2018-11-24] MEDS: Atorvastatin Calcium 10 MG TAB PO SCH (20:40)
[2018-11-25 04:38] LABS: INR-International Normal Ratio 2.2; Prothrombin Time 24.1 SEC (12.0-14.7)
[2018-11-25 04:58] LABS: Anion Gap 17 mmol/L (10-20); BUN (Urea Nitrogen) 85 mg/dL (9.8-20.1); Calc. Creatinine Clearance 32 mL/min (70-130); Calcium 9.5 mg/dL (7.8-10.44); Carbon Dioxide 34 mmol/L (23-31); Chloride 95 mmol/L (98-107); Estimated GFR-MDRD 30; Glucose 106 mg/dL (83-110); Potassium 4.4 mmol/L (3.5-5.1); Sodium 142 mmol/L (136-145)
[2018-11-25] MEDS: Aspirin 81 mg Enteric Coated Tablet PO SCH (08:52)
[2018-11-25] MEDS: Calcium Carbonate + Vit D 1 TAB PO SCH ×2 (08:52→17:33)
[2018-11-25] MEDS: Carvedilol 6.25 MG TAB PO SCH ×2 (08:53→20:24)
[2018-11-25] MEDS: hydrALAZINE 25 MG TAB PO SCH ×2 (08:55→20:19)
[2018-11-25] MEDS: Isosorbide Mononitrate 20 MG TAB PO SCH ×2 (08:55→20:17)
[2018-11-25] MEDS: Senokot S 8.6-50 MG TAB PO SCH ×4 (08:56→20:21)
[2018-11-25] MEDS ORDERED: Furosemide 40 MG/4 ML VIAL SLOW IVP SCH (09:00)
--- NOTE | 2018-11-25 14:00 | PDOC.PN ---
- Subjective Encounter Start Date: 11/25/18 (f/u DM) Encounter Start Time: 13:58 Subjective: Pt more sleepy today, noted by RN this morning to not have cpap on -: while sleeping. Family report she takes hydrocodone at home for chronic -: back pain. Pt c/o back pain now. - Objective Resuscitation Status - Order Detail: 11/21/18 13:34 Resuscitation Status Routine Resuscitation Status: FULL: Full Resuscitation Discussed with: Patient Vital Signs & Weight: Vital Signs (12 hours) Temp Pulse Resp BP BP Pulse Ox 11/25/18 12:03 98.4 F 64 18 142/64 H 98 11/25/18 08:54 66 11/25/18 07:31 99.4 F 58 L 20 137/63 95 11/25/18 04:00 97.6 F 57 L 18 129/56 L 94 L 11/25/18 03:47 97.6 F 57 L 18 129/56 L 94 L Weight Weight 216 lb 9.6 oz I&O: 11/24/18 11/25/18 11/26/18 06:59 06:59 06:59 Intake Total 1440 1210 Output Total 3030 1600 Balance -1590 -390 Result Diagrams: 11/22/18 08:57 11/25/18 04:13 Additional Labs: Accuchecks 11/25/18 11/24/18 11/24/18 05:29 20:32 16:40 POC Glucose 128 H 247 H 137 H EKG Reviewed by me: Yes (tele - sinus 50-60's) Phys Exam - Physical Examination Constitutional: NAD Respiratory: no wheezing, no rales, no rhonchi distant lung sounds Cardiovascular: RRR, no significant murmur distant heart sounds Gastrointestinal: soft, non-tender, positive bowel sounds trace pitting edema bilateral Neurological: non-focal wakes to voice, answers questions appropriately, easily falls back asleep Skin: no rash Dx/Plan (1) Acute on chronic diastolic (congestive) heart failure Code(s): I50.33 - ACUTE ON CHRONIC DIASTOLIC (CONGESTIVE) HEART FAILURE Status : Acute (2) Coronary artery disease Code(s): I25.10 - ATHSCL HEART DISEASE OF [place] CORONARY ARTERY W/O ANG PCTRS Status: Chronic (3) Diabetes mellitus type 2, insulin dependent Code(s): E11.9 - TYPE 2 DIABETES MELLITUS WITHOUT COMPLICATIONS; Z79.4 - ALF (CURRENT) USE OF INSULIN Status: Chronic (4) Hyperlipidemia Code(s): E78.5 - HYPERLIPIDEMIA, UNSPECIFIED Status: Chronic Qualifiers: Hyperlipidemia type: unspecified Qualified Code(s): E78.5 - Hyperlipidemia , unspecified (5) Hypertension Code(s): I10 - ESSENTIAL (PRIMARY) HYPERTENSION Status: Chronic Qualifiers: Hypertension type: essential hypertension Qualified Code(s): I10 - Essential (primary) hypertension (6) Paroxysmal atrial fibrillation Code(s): I48.0 - PAROXYSMAL ATRIAL FIBRILLATION Status: Chronic Comment: on Coumadin, pharmacy dosing (7) Pulmonary artery hypertension Code(s): I27.21 - SECONDARY PULMONARY ARTERIAL HYPERTENSION Status: Chronic (8) Mitral regurgitation Status: Chronic Qualifiers: Cardiac valve disease etiology: etiology unspecified Qualified Code(s): I34.0 - Nonrheumatic mitral (valve) insufficiency (9) Tricuspid regurgitation Code(s): I07.1 - RHEUMATIC TRICUSPID INSUFFICIENCY Status: Chronic Qualifiers: Cardiac valve disease etiology: etiology unspecified Qualified Code(s): I07.1 - Rheumatic tricuspid insufficiency - Plan * * Appreciate Cardiology & Nephrology consults with regards to medication and HF/ CKD * continue home meds - adjusted norco to 1 tab q8h prn, as pt's daughter states pt takes this twice daily only * Consult Pall care to assist with goals of care as pt has been in the hospital twice in a short period of time * * dvt prophy - full dose warfarin and therapeutic - pharmacy dosing * gi prophy - on home PPI and famotidine started on admission due to concern pt was recently on prednisone and having GI side effects - continue * code status full * * pt remains at high risk in current condition and at high risk for recurrent admissions. * anticipated length of stay - a few more days to transition to oral lasix when ready.
--- NOTE | 2018-11-25 14:28 | PDOC.CTH ---
Cardiology Progress Note - Subjective Pt.seen and eval.no new events. - Objective Vital Signs Temp Pulse Resp BP BP Pulse Ox 11/25/18 12:03 98.4 F 64 18 142/64 H 98 11/25/18 08:54 66 11/25/18 07:31 99.4 F 58 L 20 137/63 95 11/25/18 04:00 97.6 F 57 L 18 129/56 L 94 L 11/25/18 03:47 97.6 F 57 L 18 129/56 L 94 L Weight 216 lb 9.6 oz 11/24/18 11/25/18 11/26/18 06:59 06:59 06:59 Intake Total 1440 1210 Output Total 3030 1600 Balance -1590 -390 - Physical Examination General/Neuro: alert & oriented x3 Neck: no JVD present Lungs: CTA, other: (decreased ispiratory effort.) Heart: RRR Abdomen: soft - Telemetry Telemetry Rhythm: NSR,PAC's - Labs Result Diagrams: 11/22/18 08:57 11/25/18 04:13 - Assessment/Plan 1. Acute on chronic diastolic CHF - Stable with Coreg 12.5mg BID, Lasix 40mg IV daily. Not on MARY/ARB due to hx of CKD 2. Severe MR with s/p MV annuloplasty in 2008 3. Severe TR 4. Chronic afib - well controlled HR with Coreg 12.5mg BID. On Coumadin for Afib and hx of PE. 5. GUI on CKD, cardiorenal. 6. HTN - Will increase Hydralazine from 25mg to 50mg TID; 7. Mild CAD - on bblocker, statin, and ASA 8. Pulm. HTN 9. PE in past 10. Sleep Apnea 11. Chronic Anemia Anemia. * Plan to be back to rehab. when stable.
[2018-11-25] MEDS: HYDROcodone/Acetaminophen 5/325 mg Tablet PO PRN (15:04)
[2018-11-25] MEDS ORDERED: Amlodipine 5 MG TAB PO SCH (15:30)
[2018-11-25] MEDS: Warfarin Sodium 7.5 MG TAB PO SCH (17:33)
[2018-11-25] MEDS: HumaLOG 300 UNITS/3 ML VIAL SC PRN (17:34)
[2018-11-25] MEDS: Acetaminophen 325 MG TAB PO PRN (20:16)
[2018-11-25] MEDS: Atorvastatin Calcium 10 MG TAB PO SCH (20:19)
[2018-11-25] MEDS: Famotidine 20 MG TAB PO SCH (20:20)
[2018-11-25] MEDS: Latanoprost 0.005% Ophth Soln 2.5 ml Bottle EA EYE SCH (20:22)
[2018-11-26 04:27] LABS: #Eosinphils 0.2 thou/uL (0.0-0.7); #Lymphocytes 1.1 thou/uL (1.20-3.40); #Monocytes 0.5 thou/uL (0.11-0.59); #Neutrophils 3.6 thou/uL (1.40-6.50); %Basophils 0.4 % (0.0-1.0); %Eosinophils 3.6 % (0.0-10.0); %Monocytes 9.4 % (0.0-10.0); %Neutrophils 66.5 % (42.0-75.0); Hemoglobin 8.2 g/dL (12.0-16.0); Mean Corpuscular HGB CONC 31.1 g/dL (32.0-36.0); Mean Corpuscular Hemoglobin 32.7 pg (27.0-31.0); Mean Platelet Volume 7.2 fL (7.4-10.4); Platelet Count 156 thou/uL (130-400); RBC Distribution Width 12.4 % (11.5-14.5); White Blood Cell (WBC) Count 5.4 thou/uL (4.8-10.8)
[2018-11-26 04:32] LABS: INR-International Normal Ratio 2.5; Prothrombin Time 26.9 SEC (12.0-14.7)
[2018-11-26 04:47] LABS: Anion Gap 13 mmol/L (10-20); BUN (Urea Nitrogen) 85 mg/dL (9.8-20.1); Calc. Creatinine Clearance 30 mL/min (70-130); Calcium 9.2 mg/dL (7.8-10.44); Carbon Dioxide 36 mmol/L (23-31); Chloride 93 mmol/L (98-107); Estimated GFR-MDRD 28; Glucose 150 mg/dL (83-110); Sodium 138 mmol/L (136-145)
[2018-11-26] MEDS: Senokot S 8.6-50 MG TAB PO SCH ×4 (08:39→20:39)
[2018-11-26] MEDS: Carvedilol 6.25 MG TAB PO SCH ×2 (08:42→20:38)
[2018-11-26] MEDS: Calcium Carbonate + Vit D 1 TAB PO SCH ×2 (08:42→17:03)
[2018-11-26] MEDS: Aspirin 81 mg Enteric Coated Tablet PO SCH (08:42)
[2018-11-26] MEDS: hydrALAZINE 25 MG TAB PO SCH ×2 (08:44→20:38)
[2018-11-26] MEDS: Isosorbide Mononitrate 20 MG TAB PO SCH ×2 (08:44→20:38)
[2018-11-26] MEDS: HYDROcodone/Acetaminophen 5/325 mg Tablet PO PRN (10:30)
--- NOTE | 2018-11-26 10:32 | PDOC.PN ---
- Subjective Encounter Start Date: 11/26/18 (f/u cardiorenal syndrome) Encounter Start Time: 10:31 Subjective: Pt reports feeling terrible today - low energy, back hurts, dizzy -: denies any chest pain. -: cpap not working overnight - only O2 used - Objective Resuscitation Status - Order Detail: 11/21/18 13:34 Resuscitation Status Routine Resuscitation Status: FULL: Full Resuscitation Discussed with: Patient Vital Signs & Weight: Vital Signs (12 hours) Temp Pulse Resp BP Pulse Ox 11/26/18 08:42 61 11/26/18 07:09 98.5 F 60 20 148/65 H 95 11/26/18 04:00 98.6 F 60 20 117/55 L 98 11/26/18 03:33 98.6 F 60 20 117/55 L 98 Weight Weight 218 lb 1.6 oz I&O: 11/25/18 11/26/18 11/27/18 06:59 06:59 06:59 Intake Total 1210 1440 Output Total 1600 2100 Balance -390 -660 Result Diagrams: 11/26/18 04:18 11/26/18 04:18 Additional Labs: Accuchecks 11/26/18 11/25/18 11/25/18 05:45 20:19 16:40 POC Glucose 161 H 147 H 195 H 11/25/18 10:34 POC Glucose 184 H EKG Reviewed by me: Yes (tele - sinus 55-60 with WAP) Phys Exam - Physical Examination Constitutional: NAD Respiratory: no wheezing, no rhonchi distant breath sounds with bibasilar rales Cardiovascular: RRR 2/6 SHANTA Gastrointestinal: soft, non-tender, positive bowel sounds Non-pitting edema of LE Neurological: non-focal Dx/Plan (1) Acute on chronic diastolic (congestive) heart failure Code(s): I50.33 - ACUTE ON CHRONIC DIASTOLIC (CONGESTIVE) HEART FAILURE Status : Acute (2) Coronary artery disease Code(s): I25.10 - ATHSCL HEART DISEASE OF [place] CORONARY ARTERY W/O ANG PCTRS Status: Chronic (3) Diabetes mellitus type 2, insulin dependent Code(s): E11.9 - TYPE 2 DIABETES MELLITUS WITHOUT COMPLICATIONS; Z79.4 - S[employer] [employer] (CURRENT) USE OF INSULIN Status: Chronic (4) Hyperlipidemia Code(s): E78.5 - HYPERLIPIDEMIA, UNSPECIFIED Status: Chronic Qualifiers: Hyperlipidemia type: unspecified Qualified Code(s): E78.5 - Hyperlipidemia , unspecified (5) Hypertension Code(s): I10 - ESSENTIAL (PRIMARY) HYPERTENSION Status: Chronic Qualifiers: Hypertension type: essential hypertension Qualified Code(s): I10 - Essential (primary) hypertension (6) Paroxysmal atrial fibrillation Code(s): I48.0 - PAROXYSMAL ATRIAL FIBRILLATION Status: Chronic Comment: on Coumadin, pharmacy dosing (7) Pulmonary artery hypertension Code(s): I27.21 - SECONDARY PULMONARY ARTERIAL HYPERTENSION Status: Chronic (8) Mitral regurgitation Status: Chronic Qualifiers: Cardiac valve disease etiology: etiology unspecified Qualified Code(s): I34.0 - Nonrheumatic mitral (valve) insufficiency (9) Tricuspid regurgitation Code(s): I07.1 - RHEUMATIC TRICUSPID INSUFFICIENCY Status: Chronic Qualifiers: Cardiac valve disease etiology: etiology unspecified Qualified Code(s): I07.1 - Rheumatic tricuspid insufficiency - Plan * Appreciate Cardiology & Nephrology consults with regards to medication and HF/ CKD * Lasix held due to rising creatinine * Dr. Maria to see today * Anemia - remains in the 8.0-9 range, no active bleeding - will d/w Nephrology transfusion threshold * continue home meds - norco prn for back pain * * Hospital cpap requested - pt has been without cpap for 2 nights - likely contributing to fatigue * continue pt/ot * * Consult Pall care consult over the weekend to assist with goals of care as pt has been in the hospital twice in a short period of time * * dvt prophy - full dose warfarin and therapeutic - pharmacy dosing - up to 2.5 today, they will review current warfarin dosing * gi prophy - on home PPI and famotidine started on admission due to concern pt was recently on prednisone and having GI side effects - continue * code status full * * pt remains at high risk in current condition and at high risk for recurrent admissions. * anticipated length of stay - a few more days to transition to oral lasix when ready..
--- NOTE | 2018-11-26 12:43 | PDOC.CTH ---
Cardiology Progress Note - Subjective No new issues. Breathing at baseline. - Objective Vital Signs Temp Pulse Pulse Resp BP BP BP 11/26/18 11:40 97.7 F 60 22 H 133/60 11/26/18 11:20 60 133/60 11/26/18 08:42 61 11/26/18 07:09 98.5 F 60 20 148/65 H 11/26/18 04:00 98.6 F 60 20 117/55 L 11/26/18 03:33 98.6 F 60 20 117/55 L Pulse Ox Pulse Ox Pulse Ox 11/26/18 11:40 96 11/26/18 11:20 95 96 11/26/18 08:42 11/26/18 07:09 95 11/26/18 04:00 98 11/26/18 03:33 98 Weight 218 lb 1.6 oz 11/25/18 11/26/18 11/27/18 06:59 06:59 06:59 Intake Total 1210 1440 Output Total 1600 2100 Balance -390 -660 - Physical Examination General/Neuro: alert & oriented x3, NAD Neck: no JVD present Lungs: CTA, unlabored respirations Heart: other: (Irreg irreg.) Abdomen: soft Extremities: + edema B (Trace) - Telemetry Telemetry Rhythm: Afib HR 60's. - Labs Result Diagrams: 11/26/18 04:18 11/26/18 04:18 - Assessment/Plan 1. Acute on chronic diastolic CHF 2. Severe MR 3. Severe TR 4. Chronic afib 5. GUI on CKD, cardiorenal. 6. Anemia. PLAN: - Agree with holding diuresis and likely re start PO lasix tomorrow. - Continue other meds. - Would keep one more day and if creatinine increases will consider higher level of care as she may need mitral valve repair.
[2018-11-26] MEDS: HumaLOG 300 UNITS/3 ML VIAL SC PRN (12:46)
[2018-11-26] MEDS ORDERED: Epoetin (ESRD) 20,000 UNITS/ML SC SCH (13:00)
[2018-11-26] MEDS ORDERED: EPOETIN ALFA-EPBX (ESRD) 10,000 UNIT/ML VIAL SC SCH (14:00)
[2018-11-26] MEDS: Warfarin Sodium 7.5 MG TAB PO SCH (17:03)
[2018-11-26] MEDS: Famotidine 20 MG TAB PO SCH (20:38)
[2018-11-26] MEDS: Atorvastatin Calcium 10 MG TAB PO SCH (20:38)
[2018-11-26] MEDS: Latanoprost 0.005% Ophth Soln 2.5 ml Bottle EA EYE SCH (20:39)
[2018-11-27 06:24] LABS: #Eosinphils 0.2 thou/uL (0.0-0.7); #Monocytes 0.6 thou/uL (0.11-0.59); #Neutrophils 3.4 thou/uL (1.40-6.50); %Basophils 0.4 % (0.0-1.0); %Eosinophils 4.7 % (0.0-10.0); %Lymphocytes 19.4 % (21.0-51.0); %Monocytes 11.2 % (0.0-10.0); %Neutrophils 64.3 % (42.0-75.0); Hemoglobin 8.5 g/dL (12.0-16.0); Mean Corpuscular HGB CONC 32.2 g/dL (32.0-36.0); Mean Corpuscular Hemoglobin 33.6 pg (27.0-31.0); Mean Platelet Volume 7.8 fL (7.4-10.4); Platelet Count 152 thou/uL (130-400); RBC Distribution Width 12.5 % (11.5-14.5); Red Blood Cell (RBC) Count 2.54 mill/uL (4.20-5.40); White Blood Cell (WBC) Count 5.2 thou/uL (4.8-10.8)
[2018-11-27 06:29] LABS: INR-International Normal Ratio 2.6; Prothrombin Time 27.5 SEC (12.0-14.7)
[2018-11-27 06:43] LABS: Iron 43 ug/dL (50-170); Iron Binding Capacity, Total 316 mcg/dL (265-497)
[2018-11-27 06:44] LABS: Anion Gap 11 mmol/L (10-20); BUN (Urea Nitrogen) 76 mg/dL (9.8-20.1); Calc. Creatinine Clearance 32 mL/min (70-130); Calcium 9.3 mg/dL (7.8-10.44); Carbon Dioxide 37 mmol/L (23-31); Chloride 95 mmol/L (98-107); Estimated GFR-MDRD 31; Glucose 115 mg/dL (83-110); Potassium 3.9 mmol/L (3.5-5.1); Sodium 139 mmol/L (136-145)
[2018-11-27 07:15] LABS: Folate (Folic Acid) 13.3 ng/mL (7.0-31.4)
[2018-11-27] MEDS: Calcium Carbonate + Vit D 1 TAB PO SCH ×2 (09:02→17:01)
[2018-11-27] MEDS: Isosorbide Mononitrate 20 MG TAB PO SCH (09:02)
[2018-11-27] MEDS: Aspirin 81 mg Enteric Coated Tablet PO SCH (09:02)
[2018-11-27] MEDS: Carvedilol 6.25 MG TAB PO SCH (09:03)
[2018-11-27] MEDS: Senokot S 8.6-50 MG TAB PO SCH ×2 (09:03→09:04)
[2018-11-27] MEDS: hydrALAZINE 25 MG TAB PO SCH (09:03)
--- NOTE | 2018-11-27 10:03 | PRG ---
DATE OF SERVICE: 11/26/2018 SUBJECTIVE: Patient was seen and examined at bedside and overnight events noted. Patient denies any shortness of breath or chest pain or palpitation. No history of nausea or vomiting or diarrhea or fever or chills or cramps. OBJECTIVE: GENERAL: This is an elderly female, in no apparent distress. VITAL SIGNS: Temperature 97.7, pulse 60, respiratory rate 22, blood pressure 133/60. HEENT: Atraumatic, normocephalic. Oral mucosa is moist NECK: Supple. CARDIOVASCULAR: S1, S2 heard. Rate and rhythm regular. RESPIRATORY: Clear to auscultation. GASTROINTESTINAL: Abdomen is soft. MUSCULOSKELETAL: No tenderness. No edema. DERMATOLOGIC: No skin rash. NEUROLOGIC: Alert and awake and oriented X3. No focal neurologic deficits. Moving all the extremities. PSYCHIATRIC: Mood and affect normal. LABORATORY DATA: Hemoglobin is 8.2. Potassium 4.0, BUN is 85, and creatinine is 2.03. ASSESSMENT AND PLAN: 1. Acute kidney injury on chronic kidney disease, stage 3 with worsening renal function, seems to be follow with Cardiology. 2. . 3. Anemia of chronic disease. We will give a dose of Epogen. Rule out iron deficiency. We will recheck labs in the morning, recheck B12 and folate. Job ID: [id number]
[2018-11-27] MEDS: Acetaminophen 325 MG TAB PO PRN (14:52)
--- NOTE | 2018-11-27 15:13 | PDOC.CTH ---
Cardiology Progress Note - Subjective She is doing well. Her creatinine has remained stable. No new issues. - Objective Vital Signs Temp Pulse Resp BP Pulse Ox 11/27/18 10:04 58 L 11/27/18 09:03 58 L 11/27/18 07:35 97.8 F 84 20 167/74 H 95 11/27/18 07:20 93 L 11/27/18 03:45 99.4 F 58 L 20 155/67 H 98 Weight 214 lb 4.8 oz 11/26/18 11/27/18 11/28/18 06:59 06:59 06:59 Intake Total 1440 1280 Output Total 2100 1550 Balance -660 -270 - Physical Examination General/Neuro: alert & oriented x3, NAD Neck: no JVD present Lungs: unlabored respirations Heart: RRR Abdomen: NT/ND Extremities: + edema B (trace) - Telemetry Telemetry Rhythm: NSR - Labs Result Diagrams: 11/27/18 05:41 11/27/18 05:41 - Assessment/Plan 1. Acute on chronic diastolic CHF 2. Severe MR 3. Severe TR 4. Chronic afib 5. GUI on CKD, cardiorenal. 6. Anemia. PLAN: - PO lasix at 80 mg BID and metolazone 5 mg 3 days a week. - Continue other meds. - May discharge back to [facility] in [place]. - Follow up with [facility] in 2-4 weeks.
--- NOTE | 2018-11-27 15:42 | PRG ---
DATE OF SERVICE: 11/27/2018 SUBJECTIVE: Patient was seen and examined at bedside and overnight events noted. Patient denies any shortness of breath or chest pain or palpitation. No history of nausea or vomiting or diarrhea or fever or chills or cramps. OBJECTIVE: GENERAL: This is a well-built female in no apparent distress. VITAL SIGNS: Temperature 99.4. Heart rate . Respiratory rate . Blood pressure 155/62. HEENT: Atraumatic, normocephalic. Oral mucosa is moist NECK: Supple. CARDIOVASCULAR: S1, S2 heard. Rate and rhythm regular. RESPIRATORY: Clear to auscultation. GASTROINTESTINAL: Abdomen is soft. MUSCULOSKELETAL: No tenderness. No edema. DERMATOLOGIC: No skin rash. NEUROLOGIC: Alert and awake and oriented X3. No focal neurologic deficits. Moving all the extremities. PSYCHIATRIC: Mood and affect normal. LABORATORY DATA: Potassium is 3.9, BUN is 76, creatinine is 1.87. ASSESSMENT: 1. Acute kidney injury on chronic kidney disease 3, stable. 2. Cardiorenal syndrome. 3. Edema. 4. Hypertension. 5. Anemia. Started on iron pills. Had a dose of Epogen yesterday. 6. Monitor hemoglobin. Job ID: [id number]
--- NOTE | 2018-11-27 16:31 | PDOC.PN ---
- Subjective Encounter Start Date: 11/27/18 (f/u cardiorenal syndrome) Encounter Start Time: 16:28 Subjective: Pt without complaints, reports she is feeling 'fair'. Denies any new -: sx. - Objective Resuscitation Status - Order Detail: 11/21/18 13:34 Resuscitation Status Routine Resuscitation Status: FULL: Full Resuscitation Discussed with: Patient Vital Signs & Weight: Vital Signs (12 hours) Temp Pulse Resp BP BP Pulse Ox 11/27/18 12:20 97.8 F 77 18 131/76 94 L 11/27/18 10:04 58 L 11/27/18 09:03 58 L 11/27/18 07:35 97.8 F 84 20 167/74 H 95 11/27/18 07:20 93 L Weight Weight 214 lb 4.8 oz I&O: 11/26/18 11/27/18 11/28/18 06:59 06:59 06:59 Intake Total 1440 1280 Output Total 2100 1550 Balance -660 -270 Result Diagrams: 11/27/18 05:41 11/27/18 05:41 Additional Labs: Accuchecks 11/27/18 11/27/18 11/26/18 10:51 05:25 20:38 POC Glucose 181 H 128 H 194 H 11/26/18 17:14 POC Glucose 119 H EKG Reviewed by me: Yes (tele - sinus 50-60's) Phys Exam - Physical Examination Constitutional: NAD Respiratory: no wheezing, no rales, no rhonchi, clear to auscultation bilateral Cardiovascular: RRR 3/6 systolic and diastolic murmurs Gastrointestinal: soft, non-tender, positive bowel sounds no significant pitting edema Psychiatric: normal affect Dx/Plan (1) Acute on chronic diastolic (congestive) heart failure Code(s): I50.33 - ACUTE ON CHRONIC DIASTOLIC (CONGESTIVE) HEART FAILURE Status : Acute (2) Coronary artery disease Code(s): I25.10 - ATHSCL HEART DISEASE OF [place] CORONARY ARTERY W/O ANG PCTRS Status: Chronic (3) Diabetes mellitus type 2, insulin dependent Code(s): E11.9 - TYPE 2 DIABETES MELLITUS WITHOUT COMPLICATIONS; Z79.4 - [employer] (CURRENT) USE OF INSULIN Status: Chronic (4) Hyperlipidemia Code(s): E78.5 - HYPERLIPIDEMIA, UNSPECIFIED Status: Chronic Qualifiers: Hyperlipidemia type: unspecified Qualified Code(s): E78.5 - Hyperlipidemia , unspecified (5) Hypertension Code(s): I10 - ESSENTIAL (PRIMARY) HYPERTENSION Status: Chronic Qualifiers: Hypertension type: essential hypertension Qualified Code(s): I10 - Essential (primary) hypertension (6) Paroxysmal atrial fibrillation Code(s): I48.0 - PAROXYSMAL ATRIAL FIBRILLATION Status: Chronic Comment: on Coumadin, pharmacy dosing (7) Pulmonary artery hypertension Code(s): I27.21 - SECONDARY PULMONARY ARTERIAL HYPERTENSION Status: Chronic (8) Mitral regurgitation Status: Chronic Qualifiers: Cardiac valve disease etiology: etiology unspecified Qualified Code(s): I34.0 - Nonrheumatic mitral (valve) insufficiency (9) Tricuspid regurgitation Code(s): I07.1 - RHEUMATIC TRICUSPID INSUFFICIENCY Status: Chronic Qualifiers: Cardiac valve disease etiology: etiology unspecified Qualified Code(s): I07.1 - Rheumatic tricuspid insufficiency - Plan * * Appreciate Cardiology & Nephrology consults with regards to medication and HF/ CKD * cleared for return to swing bed. Lasix 80 mg BID PO and metolazone 5 mg three times per week * Anemia - remains in the 8.0-9 range, no active bleeding - epogen started, to continue weekly * * continue home meds - norco prn for back pain * * cpap at night * continue pt/ot * dvt prophy - full dose warfarin and therapeutic - pharmacy dosing - up to 2.5 today, they will review current warfarin dosing * gi prophy - on home PPI - continue this * code status full * Pt ready for transfer back to swing bed. Paperwork/discharge summary completed. Pt agrees with transfer and granddaughter confirms.
[2018-11-27 16:52] VITALS: BP 138/84; TEMP 97.9
[2018-11-27] MEDS: Warfarin Sodium 7.5 MG TAB PO SCH (17:00)
--- NOTE | 2018-11-28 04:59 | DIS ---
DATE OF ADMISSION: 11/21/2018 DATE OF DISCHARGE: 11/27/2018 CONSULTANTS: 1. Dr. Maria of Cardiology. 2. Dr. Reveles and Dr. Gonzales of Nephrology. MEDICATIONS: Reconciled at discharge. New medications are; 1. Epogen, to be directed by Dr. Gonzales. 2. Ferrous gluconate 324 mg once daily with meals. 3. Furosemide 80 mg twice daily. 4. Humalog mild and bedtime scales, sliding scale insulin. 5. Metolazone 5 mg every Monday, Monday, and Monday. 6. Docusate/senna b.i.d. 7. Calcium carbonate with vitamin D 1 tablet b.i.d. 8. Hydralazine b.i.d. 25 mg. Discontinued medications are; 1. Hydralazine 25 mg t.i.d. 2. Potassium chloride. 3. Lasix 40 mg daily. 4. Ferrous sulfate 325 mg b.i.d. 5. Protonix. 6. Benicar. 7. Lantus. 8. Furosemide 40 mg. 9. Pantoprazole. Medications to continue are; 1. Xanax 0.25 mg daily as needed. 2. Tylenol 650 mg every 4 hours as needed. 3. Albuterol 1.25 mg every 6 hours as needed. 4. Aspirin 81 mg daily. 5. Carvedilol 12.5 mg b.i.d. 6. Esomeprazole 40 mg daily. 7. Felodipine extended release 2.5 mg daily. 8. [place] 5/325 two tablets every 4 hours as needed. 9. Isosorbide mononitrate 10 mg b.i.d. 10. Latanoprost 1 drop each eye at bedtime. 11. Xopenex 1.25 mg every 8 hours as needed. 12. Sertraline 100 mg daily. 13. Simvastatin 20 mg at bedtime. 14. Warfarin currently at 7.5 mg in the evening. However, this should be adjusted based on her INR. FINAL DIAGNOSES: 1. Acute on chronic diastolic heart failure. 2. Severe MR and TR. 3. Chronic atrial fibrillation, on full anticoagulation with warfarin. 4. Acute kidney injury with chronic kidney disease, Cardiorenal. 5. Anemia of chronic kidney disease. SECONDARY DIAGNOSES: 1. Diabetes mellitus. 2. Hypertension. 3. Obstructive sleep apnea. 4. Pulmonary hypertension. 5. Coronary artery disease. HISTORY OF PRESENT ILLNESS: Ms. Barraza is an 88-year-old female with medical problems as noted above, who presented to the hospital from swing bed due to weight gain, and volume overload. Please see history and physical for full details. HOSPITAL COURSE: The patient has been diuresed and consultation with both Cardiology and Nephrology, with close monitoring of her renal function. Her starting creatinine was 2.74 on November 21 and today it is 1.87. She has tolerated this well, and her net change in weight is 5 pounds. Her medications have been optimized with some changes in her cardiac and blood pressure medications, which she has tolerated well. Yesterday, her creatinine was up slightly and the Lasix was held. Today, it is back down to 1.8 and she is cleared for discharge back to the swing bed. Per Dr. Maria, if diuresis is not possible, the patient will require transfer to a higher level of care for consideration of valve repair. The patient will be discharged on Lasix oral twice daily with metolazone 3 times per week, and will be followed up by Dr. Gonzales or Dr. Reveles of Nephrology as well as Dr. Maria. For the anemia, the patient was started on Epogen, monitoring of this will be essential. The patient is fully anticoagulated on warfarin and has been therapeutic while here. She is currently on a dose of 7.5 mg in the evening and this has been managed by pharmacy here. Her range of INR has been 2.2 to 2.7, and today it is 2.6. For diabetes, the patient has been treated with sliding scale insulin and over the past 24 hours, her blood sugars have ranged from 115 to the highest of 234 with the majority in the 100s. The patient's CPAP has been working intermittently here, this will need to be addressed, as the days following a night without her CPAP she is more somnolent and has more fatigue. The patient is iron deficient and will continue on iron supplementation with medication for constipation. During this hospitalization she experienced nausea that was treated with zofran. She also had some intermittent abdominal pain on admission and was started on both a PPI and an H2 maira. Palliative Care was consulted here to assist with goals of care and coping for current condition, however the patient declined to see them. The patient does meet criteria for discharge back to [place] for swing bed and rehab. PHYSICAL EXAMINATION: Please see note on chart for today. ANNE FINDINGS AND TEST RESULTS: CBC; 5.2, 8.5, 26.4, 152. INR today 2.6. Chemistry; 139, 3.9, 95, 37, 76, 1.8, 715. Calcium 9.3. Iron 43, TIBC 316, percent sat 14. Ferritin 104. Vitamin B12 of 738. Folate 13.3. Echocardiogram on November 22 shows an EF of 55% to 60%, dilated right ventricle with reduced right ventricular systolic function, severely dilated left atrium, severe mitral annular calcification with reduced leaflet excursion, moderate MR, [id number] TR, mild TX, and [id number] aortic valve stenosis with an SHAHEED of 0.8 and a mean gradient of 35 and a max velocity of 3.4. Renal ultrasound on November 21 shows no evidence of hydronephrosis or definite masses. Chest x-ray on November 21 shows cardiomegaly with pulmonary vasculature mildly increased, although accentuated by the technique of the exam. DIET: Heart healthy, carbohydrate consistent. Fluid restriction 1.5 L per day. ACTIVITY: Encouraged with PT, OT, and I do think the patient would benefit from speech therapy. CODE STATUS: Full. I reviewed with the patient this hospitalization, and the need for ongoing monitoring of her kidney and heart function, no questions or further needs at end of evaluation. DISCHARGE DISPOSITION: [facility]. Total time coordinating discharge is 40 minutes. Job ID: [id number] MTDD
[2018-11-28] MEDS ORDERED: Ferrous Gluconate 324 MG TAB PO SCH (08:00)
[2018-11-28] MEDS ORDERED: Metolazone 5 MG TAB PO SCH (09:00)
[2018-11-28] MEDS ORDERED: Furosemide 80 MG TAB PO SCH (09:00)
== END 2018-11-27 18:30 | disposition home or self-care (01) | DRG 682 ==
LOC: 2NO 12:51 → OBSVTOIN 13:34
PROVIDERS: ADMIT Internal Medicine; ATTEND Internal Medicine
DX: N17.9 Acute kidney failure, unspecified (principal); I50.33 Acute on chronic diastolic (congestive) heart failure; J96.11 Chronic respiratory failure with hypoxia; J96.12 Chronic respiratory failure with hypercapnia; I25.10 Atherosclerotic heart disease of native coronary artery without angina pectoris; I13.0 Hypertensive heart and chronic kidney disease with heart failure and stage 1 through stage 4 chronic kidney disease, or unspecified chronic kidney disease; I48.0 Paroxysmal atrial fibrillation; E78.5 Hyperlipidemia, unspecified; G47.33 Obstructive sleep apnea (adult) (pediatric); N18.3 Chronic kidney disease, stage 3 (moderate); E11.22 Type 2 diabetes mellitus with diabetic chronic kidney disease; K21.9 Gastro-esophageal reflux disease without esophagitis; I08.1 Rheumatic disorders of both mitral and tricuspid valves; D63.1 Anemia in chronic kidney disease; E11.51 Type 2 diabetes mellitus with diabetic peripheral angiopathy without gangrene; Z99.89 Dependence on other enabling machines and devices; Z90.49 Acquired absence of other specified parts of digestive tract; Z79.01 Long term (current) use of anticoagulants; Z86.711 Personal history of pulmonary embolism; Z99.81 Dependence on supplemental oxygen; Z79.82 Long term (current) use of aspirin; Z88.8 Allergy status to other drugs, medicaments and biological substances; Z79.899 Other long term (current) drug therapy; Z79.4 Long term (current) use of insulin
CPT/HCPCS: 36415; 36416; 71045; 76770; 80048; 80069; 82607; 82728; 82746; 83540; 83550; 83735; 83880; 85025; 85060; 85610; 93306; 93798; J1825; J1940; J2405; J7612; Q0162; Q5105

== ENCOUNTER 2019-07-08 09:53 | Inpatient (IN) | payer MEDICARE ==
--- NOTE | 2019-07-08 10:32 | RAD ---
Chest AP view INDICATION: Chest pain COMPARISON: November 21, 2018 FINDINGS: Lungs:There is perihilar airspace opacity Cardiac silhouette:There is prominent cardiomegaly Pulmonary vasculature:There is moderate to prominent pulmonary vascular congestion Pleural spaces:There are small bilateral pleural effusions Upper abdomen:No abnormality seen. Osseous structures: No acute osseous abnormality. Additional findings:There is postsurgical change of a prior mitral valve replacement. IMPRESSION: Findings suggestive of mild to moderate CHF.
[2019-07-08 10:50] LABS: #Eosinphils 0.2 thou/uL (0.0-0.7); #Monocytes 0.6 thou/uL (0.11-0.59); %Basophils 0.5 % (0.0-1.0); %Eosinophils 3.4 % (0.0-10.0); %Lymphocytes 21.3 % (21.0-51.0); %Monocytes 12.9 % (0.0-10.0); %Neutrophils 61.9 % (42.0-75.0); Hemoglobin 9.8 g/dL (12.0-16.0); Mean Corpuscular HGB CONC 30.5 g/dL (32.0-36.0); Mean Corpuscular Hemoglobin 31.8 pg (27.0-31.0); Mean Platelet Volume 7.9 fL (7.4-10.4); Platelet Count 142 thou/uL (130-400); RBC Distribution Width 13.9 % (11.5-14.5); Red Blood Cell (RBC) Count 3.06 mill/uL (4.20-5.40); White Blood Cell (WBC) Count 4.9 thou/uL (4.8-10.8)
[2019-07-08] MEDS ORDERED: Furosemide 40 MG/4 ML VIAL ONE (11:09)
[2019-07-08 11:16] LABS: ALT (SGPT) 12 U/L (8-55); AST (SGOT) 26 U/L (5-34); Albumin 3.4 g/dL (3.4-4.8); Alkaline Phosphatase 200 U/L (40-110); BUN (Urea Nitrogen) 25 mg/dL (9.8-20.1); Bilirubin, Total 0.6 mg/dL (0.2-1.2); Calc. Creatinine Clearance 0 mL/min (70-130); Calcium 9.3 mg/dL (7.8-10.44); Estimated GFR-MDRD 58; Globulin 3.2 g/dL (2.4-3.5); Glucose 151 mg/dL (83-110); Protein, Total 6.6 g/dL (6.0-8.3)
[2019-07-08 11:23] LABS: CKMB 0.5 ng/mL (0-6.6)
[2019-07-08 11:25] LABS: Anion Gap 15 mmol/L (10-20); Carbon Dioxide 40 mmol/L (23-31); Chloride 87 mmol/L (98-107); Potassium 3.9 mmol/L (3.5-5.1); Sodium 138 mmol/L (136-145)
[2019-07-08 12:39] LABS: Analyzer IN Cardio ER; Base Excess (BEa) 20.5 mEq/L (-2.0 to +3.0); Calcium, Ionized 1.15 mmol/L (1.12-1.30); Carboxyhemoglobin (COHb) 0.6 gm% (0.0-3.0); Hemoglobin (Hb) 10.5 g/dL (12.0-16.0); Potassium - ABG Lab 3.69 mmol/L (3.70-5.30); pH, Arterial 7.44 (7.35-7.45)
[2019-07-08] MEDS ORDERED: Albuterol Sulfate 2.5 mg/3 ml Neb ONE (13:06)
[2019-07-08 13:50] LABS: CO2 Tension 72.9 mmHg (35.0-45.0)
[2019-07-08 13:51] LABS: ALV-art Gradient 35.655 (0-20); O2 Tension (PaO2) 58.6 mmHg (> 60.0); Puncture Site RRA
[2019-07-08 14:16] LABS: Troponin I 0.023 ng/mL (< 0.028)
[2019-07-08] MEDS ORDERED: Ondansetron PF 4 MG/2 ML Vial IVP PRN (14:43)
[2019-07-08] MEDS ORDERED: hydrALAZINE 20 MG/ML VIAL SLOW IVP PRN (14:49)
--- NOTE | 2019-07-08 14:54 | PDOC.HHP ---
Hospitalist HPI - History of Present Illness chest pain History of Present Illness: This is an 88 year old female with past medical history of CHF, afib, pulmonary hypertension on oxygen, type II diabetes, CKD stage III, who presented from [facility] due to persistent chest pain. THe patient states that her chest pain was in the left side of her chest. She believes it persisted for a few hours so was sent to the ER. She is unable to give more details with regards to her chest pain. She denied arm pain. She denied fevers, chills, runny nose, sore throat, cough. Per daughter, she does not think patient received her am medications at the [place] [facility]. She was noted to have a 5 pound weight gain recently. The patient was recently discharged from rehab on 06/14 and was started on metolazone for her herat failuire. SHe was also placed on a pureed diet due to dysphagia and she was discharged to [facility] for long- term car.e ED Course: The patient was afebrile upon arrival to the ER. BP was 103/60, HR was 130, oxygen saturation 100% on 2L nasal cannula. Per nursing staff, she was very difficult to arouse to sternal rub and was not able to stay awake. Nurses felt she had CO2 narcosis. ABG showed pH 7.4, PCO2 76. She was placed on BIPAP in the ER and they felt she was more alert with this. Chest X ray showed pulmonary vascular congestion, she was not given diuresis due to soft BP. EKG showed atrial fibrillation. She had BNP of 1000, mild troponin elevation of 0.023. Upon arrival to the IMCU, patient was taken off BIPAP and placed on nasal cannula and is alert and responsive. Hospitalist ROS - Review of Systems Constitutional: denies: fever, chills ENT: denies: ear discharge Respiratory: reports: shortness of breath. denies: cough, dry Cardiovascular: reports: chest pain. denies: palpitations, orthopnea Hospitalist History - Past Medical History Cardiac: reports: AFIB, CHF, HTN, Aortic stenosis, Other (severe TR) Pulmonary: reports: COPD Renal/: reports: Chronic renal insuff - Past Surgical History Other Surgical History: Mitral valve repair - Family History Other Family History: Unable to state - Social History Smoking Status: Never smoker Alcohol: reports: None Living Situation: [facility] - Exam General Appearance: NAD, awake alert General - other findings: on BIPAP initially, now weaned to NC ENT: normocephalic atraumatic, no oropharyngeal lesions Neck: JVD Heart: RRR, no rubs Heart - other findings: difficult to appreciate murmur due to BIPAP Respiratory: CTAB, no wheezes, no rales Gastrointestinal: soft, non-tender, non-distended Extremities: 2+ LE edema Skin: normal turgor, no lesions, no rashes Neurological: cranial nerve grossly intact, normal sensation to touch, no focal deficits, no new deficit Musculoskeletal: normal tone, normal strength, no muscle wasting Hospitalist Results - Labs Result Diagrams: 07/08/19 10:30 07/08/19 10:30 Lab results: WBC 4.9 thou/uL (4.8-10.8) 07/08/19 10:30 Hgb 9.8 g/dL (12.0-16.0) L 07/08/19 10:30 Hct 31.9 % (36.0-47.0) L 07/08/19 10:30 MCV 104.0 fL (78.0-98.0) H 07/08/19 10:30 Plt Count 142 thou/uL (130-400) 07/08/19 10:30 Neutrophils % 61.9 % (42.0-75.0) 07/08/19 10:30 ABG pH 7.44 (7.35-7.45) 07/08/19 12:33 ABG pCO2 72.9 mmHg (35.0-45.0) H* 07/08/19 12:33 ABG pO2 58.6 mmHg (> 60.0) L* 07/08/19 12:33 Sodium 138 mmol/L (136-145) 07/08/19 10:30 Potassium 3.9 mmol/L (3.5-5.1) 07/08/19 10:30 Chloride 87 mmol/L (98-107) L 07/08/19 10:30 Carbon Dioxide 40 mmol/L (23-31) H 07/08/19 10:30 BUN 25 mg/dL (9.8-20.1) H 07/08/19 10:30 Creatinine 1.08 mg/dL (0.6-1.1) 07/08/19 10:30 Glucose 151 mg/dL (83-110) H 07/08/19 10:30 Calcium 9.3 mg/dL (7.8-10.44) 07/08/19 10:30 Total Bilirubin 0.6 mg/dL (0.2-1.2) 07/08/19 10:30 AST 26 U/L (5-34) 07/08/19 10:30 ALT 12 U/L (8-55) 07/08/19 10:30 Alkaline Phosphatase 200 U/L (40-110) H 07/08/19 10:30 CK-MB (CK-2) 0.5 ng/mL (0-6.6) 07/08/19 10:30 Troponin I 0.023 ng/mL (< 0.028) 07/08/19 13:39 B-Natriuretic Peptide 1066.0 pg/mL (0-100) H 07/08/19 10:30 Serum Total Protein 6.6 g/dL (6.0-8.3) 07/08/19 10:30 Albumin 3.4 g/dL (3.4-4.8) 07/08/19 10:30 - EKG Interpretation EKG: atrial fibrillation Hospitalist H&P A/P - Plan Plan: This is an 88 year old female with past medical history of severe , hypertension,COPD, diastolic heart failure who presents with chest pain, found to have pulmonary edema, admitted for acute CHF #Acute hypoxic respiratory failure from diastolic CHF #Severe aortic stenosis #Severe Tricuspid regurgitation #Moderate MR #Mixed respiratory acidosis/metabolic alkalosis - pt with chest pain, pulmonary edema, elevated BNP and 5 pound weight gain - last ECHO 11/2018 showed EF 55-60%. She was getting lasix and metolazone at her rehab facility. Given significant metabolic alkalosis, will give 500 mg acetazolamide and hold off on other diuretics. - repeat ECHO - first troponin elevated, trend x 3, monitor on telemetry. Cardiology consult given severe and TR - continue aspirin 81 mg daily, atorvastatin1 0mg daily Chronic respiratory failure from COPD - continue albuterol as needed Hypertensive urgency - continue coreg bid, hydralazine tid - felodipine 2.5 mg daily Iron deficiency anemia - ferrous sulfate 325 mg bid Type II DM - insulin sliding scale - fingersticks achs DVT prophylaxis: lovenox Code status: full code
[2019-07-08] MEDS ORDERED: acetaZOLAMIDE Sodium 500 mg Vial IVP SCH (15:00)
[2019-07-08] MEDS ORDERED: acetaZOLAMIDE Sodium 500 MG in Sodium Chloride 0.9% 50 ML IVPB SCH (15:45)
[2019-07-08 16:08] VITALS: BMI 40.6
[2019-07-08 17:09] LABS: Troponin I 0.016 ng/mL (< 0.028)
[2019-07-08] MEDS ORDERED: Albuterol Sulfate 1.25 MG/3 ML NEB NEB PRN (17:40)
[2019-07-08] MEDS ORDERED: Dextrose 50% Abboject 50 ML SYRINGE SLOW IVP PRN (17:40)
[2019-07-08] MEDS ORDERED: Dextrose 5% in Water 1,000 ML IV PRN (17:40)
[2019-07-08] MEDS ORDERED: Enoxaparin Sodium 40 MG/0.4 ML SYRINGE SC SCH (17:45)
[2019-07-08] MEDS ORDERED: hydrALAZINE 25 MG TAB PO SCH ×2 (17:45→21:00)
--- NOTE | 2019-07-08 21:29 | CON ---
DATE OF CONSULTATION: HISTORY OF PRESENT ILLNESS: Libertad Barraza is an 88-year-old black female, who has had previous history of mitral ring annuloplasty in February 2009, as well as left-sided maze procedure at that time. She has been cared for by Dr. Balderas for many years, but she states she does not recall the last time she saw him. She was recently hospitalized here in November 2018 with elevated creatinine and increased shortness of breath. She was cared for by Dr. Maria at that time. Echocardiogram at that time showed an ejection fraction of 55% to 60%, dilated right ventricle, decreased right ventricular systolic function, dilated left and right atrium, severe mitral annular calcification with decreased leaflet excursion, moderate mitral regurgitation, [id number] tricuspid regurgitation, elevated right ventricular pressure of 80 mm, calcified aortic valve with aortic valve area of 0.8 cm2, mean gradient of 35 mm and mild aortic regurgitation. She was diuresed and [facility] under the care of Dr. Al. She now is admitted with increased chest pressure. She is not certain how long that lasted and cannot really give much of a history. She also states that she was somewhat short of breath with that. Her heart rate was 130 per minute in atrial fibrillation. She then became somewhat unarousable even with sternal rub. Blood gases were performed. She had a pCO2 of 76, placed on BiPAP and this has since been discontinued. Chest x-ray showed pulmonary vascular congestion and she was given intravenous Lasix. At the present time, she is eating her dinner and appears very comfortable. It sounds as if she does not ambulate anymore and pretty much stays in bed. PAST MEDICAL HISTORY: Hyperlipidemia, hypertension, diabetes, mild coronary artery disease, chronic atrial fibrillation, severe mitral regurgitation, status post mitral valve ring annuloplasty, chronic diastolic heart failure, pulmonary artery hypertension, pulmonary embolism in the past, sleep apnea, chronic anemia, obesity. PAST SURGICAL HISTORY: Appendectomy, status post mitral valve repair with maze procedure, cholecystectomy. MEDICATIONS: 1. Aspirin 81 daily. 2. Carvedilol 6.25 b.i.d. 3. Vitamin D3. 4. Esomeprazole 40 mg daily. 5. Felodipine 2.5 daily. 6. Furosemide 20 mg b.i.d. 7. Hydralazine 10 t.i.d. 8. Isosorbide mononitrate 10 b.i.d. 9. DuoNebs q.8 hours. 10. Milk of magnesia p.r.n. 11. Melatonin 6 mg at bedtime. 12. Metolazone 2.5 mg daily. 13. MiraLAX p.r.n. 14. KCl 10 mEq p.r.n. 15. Senokot 1 tablet b.i.d. 16. Simvastatin 20 at bedtime. 17. Warfarin 5 mg q.p.m. ALLERGIES: 1. BENADRYL. 2. BIDIL. 3. METFORMIN. 4. REVATIO. 5. ADCIRCA. 6. ADEMPAS. 7. LETAIRIS. 8. TRACLEER. SOCIAL HISTORY: She does not smoke or drink. Brothers had myocardial infarction. REVIEW OF SYSTEMS: Difficult to obtain. This patient is a very poor historian. PHYSICAL EXAMINATION: VITAL SIGNS: Blood pressure 168/108, pulse of 106, atrial fibrillation. HEENT: PERRL. CHEST: Fairly clear. CARDIOVASCULAR: S1, S2 normal without any S3 or S4. There is a 2/6 systolic murmur. ABDOMEN: Normal bowel sounds without tenderness or organomegaly. EXTREMITIES: Revealed 1 to 2+ edema. NEUROLOGIC: Grossly intact except for poor memory. IMAGIN. EKG reveals atrial fibrillation with occasional PVC, incomplete right bundle-branch block, nonspecific ST and T-wave changes. 2. Chest x-ray reveals cardiomegaly and increased pulmonary vascularity. LABORATORY DATA: Hemoglobin 9.8, hematocrit 31.9, white count 4900, platelets 142,000 and INR 2.2. pH 7.44, pCO2 72.9, pO2 58.6. Sodium 138, potassium 3.9, chloride 87, carbon dioxide 40, BUN 25, creatinine 1.08. In the past, her creatinine has been in the 1.5 to 2.0 range. BNP 1066.0. Troponin I 0.029. IMPRESSION: 1. [id number] diastolic heart failure with increased shortness of breath. 2. Severe aortic stenosis. 3. Severe pulmonary artery hypertension. 4. History of mitral valve repair with Maze procedure. 5. CO2 retention. 6. Hypertension. 7. Hypercholesterolemia. 8. Diabetes. 9. Mild coronary artery disease. 10. Chronic atrial fibrillation. 11. History of pulmonary embolism in the past. RECOMMENDATIONS: INR will be obtained. She will continue to be diuresed. Cardiac enzymes will be performed. Echocardiogram will be repeated. So this is a very difficult situation in a bedridden [facility] patient with severe valvular disease. Job ID: [id number]
[2019-07-08] MEDS: hydrALAZINE 25 MG TAB PO SCH (21:57)
[2019-07-08] MEDS: Melatonin 3 MG TAB PO SCH (21:57)
[2019-07-08] MEDS: Latanoprost 0.005% Ophth Soln 2.5 ml Bottle EA EYE SCH (21:58)
[2019-07-08] MEDS: Famotidine/PF 20 mg/2ml Vial SLOW IVP SCH (21:58)
[2019-07-08] MEDS: DorzolamidE/Timolol 2%/0.5% Ophth Soln 10 ml Bottle EA EYE SCH (21:58)
[2019-07-08] MEDS: Carvedilol 6.25 MG TAB PO SCH (21:58)
[2019-07-08] MEDS: Atorvastatin Calcium 10 MG TAB PO SCH (21:58)
[2019-07-09 03:41] LABS: #Basophils 0.1 thou/uL (0.0-0.2); #Eosinphils 0.1 thou/uL (0.0-0.7); #Lymphocytes 1.2 thou/uL (1.20-3.40); #Monocytes 0.6 thou/uL (0.11-0.59); #Neutrophils 3.6 thou/uL (1.40-6.50); %Basophils 1.1 % (0.0-1.0); %Eosinophils 2.6 % (0.0-10.0); %Lymphocytes 20.7 % (21.0-51.0); %Neutrophils 64.5 % (42.0-75.0); Hemoglobin 9.7 g/dL (12.0-16.0); Mean Corpuscular HGB CONC 31.1 g/dL (32.0-36.0); Mean Platelet Volume 8.6 fL (7.4-10.4); Platelet Count 136 thou/uL (130-400); RBC Distribution Width 13.9 % (11.5-14.5); Red Blood Cell (RBC) Count 3.03 mill/uL (4.20-5.40); White Blood Cell (WBC) Count 5.6 thou/uL (4.8-10.8)
[2019-07-09 03:47] LABS: INR-International Normal Ratio 2.2
[2019-07-09 03:59] LABS: BUN (Urea Nitrogen) 26 mg/dL (9.8-20.1); Calc. Creatinine Clearance 51 mL/min (70-130); Calcium 9.6 mg/dL (7.8-10.44); Estimated GFR-MDRD 54; Glucose 118 mg/dL (83-110)
[2019-07-09 04:08] LABS: Anion Gap 14 mmol/L (10-20); Chloride 86 mmol/L (98-107); Potassium 3.4 mmol/L (3.5-5.1); Sodium 138 mmol/L (136-145)
[2019-07-09 04:11] LABS: Carbon Dioxide 41 mmol/L (23-31)
[2019-07-09] MEDS ORDERED: Potassium Chloride 20 MEQ TAB PO SCH (10:00)
[2019-07-09] MEDS: hydrALAZINE 25 MG TAB PO SCH ×3 (10:22→21:51)
[2019-07-09] MEDS: Carvedilol 6.25 MG TAB PO SCH ×2 (10:23→21:52)
[2019-07-09] MEDS: Amlodipine 5 MG TAB PO SCH (10:23)
[2019-07-09] MEDS: Famotidine/PF 20 mg/2ml Vial SLOW IVP SCH (10:24)
[2019-07-09] MEDS: Enoxaparin Sodium 40 MG/0.4 ML SYRINGE SC SCH (10:24)
[2019-07-09] MEDS: Aspirin 81 mg Enteric Coated Tablet PO SCH (10:24)
--- NOTE | 2019-07-09 11:34 | RAD ---
EXAM: Single view of the chest HISTORY: Pulmonary edema COMPARISON: 07/08/2019 FINDINGS: Single view of the chest shows an enlarged but stable cardiomediastinal silhouette. The pa tient is status post aortic valve repair. There is no evidence of consolidation, mass, or pleural effusion. The bones are unremarkable. IMPRESSION: Cardiomegaly without evidence of acute cardiopulmonary disease
--- NOTE | 2019-07-09 14:55 | PDOC.HOSPP ---
- Subjective Encounter Date: 07/09/19 Encounter Time: 14:55 Subjective: The patient is feeling better. Has some shortness of breath, no cough or congestion - Objective Vital Signs & Weight: Vital Signs (12 hours) Temp Pulse BP 07/09/19 11:54 98.0 F 07/09/19 10:23 87 154/82 H 07/09/19 10:22 83 153/82 H 07/09/19 07:24 97.4 F L 07/09/19 03:49 97.4 F L Weight Weight 207 lb 2 oz Most Recent Monitor Data Heart Rate from ECG 93 NIBP 133/97 NIBP BP-Mean 109 Respiration from ECG 30 SpO2 100 Result Diagrams: 07/09/19 03:19 07/09/19 03:19 Additional Labs: Accuchecks 07/09/19 07/09/19 07/08/19 10:35 05:52 20:18 POC Glucose 91 114 H 152 H Hospitalist ROS - Review of Systems Constitutional: denies: fever, chills Cardiovascular: denies: chest pain, palpitations - Medication Medications: Active Medications Generic Name Dose Route Start Last Admin Trade Name Freq PRN Reason Stop Dose Admin Amlodipine Besylate 2.5 mg 07/09/19 09:00 07/09/19 10:23 Norvasc PO 2.5 mg DAILY LILIANA Administration Aspirin 81 mg 07/09/19 09:00 07/09/19 10:24 Ecotrin PO 81 mg DAILY LILIANA Administration Atorvastatin Calcium 10 mg 07/08/19 21:00 07/08/19 21:58 Lipitor PO 10 mg HS LILIANA Administration Carvedilol 6.25 mg 07/08/19 21:00 07/09/19 10:23 Coreg PO 6.25 mg BID LILIANA Administration Cholecalciferol 5,000 units 07/09/19 09:00 07/09/19 10:24 Vitamin D3 PO 5,000 units DAILY LILIANA Administration Dorzolamide/Timolol 1 drop 07/08/19 21:00 07/08/19 21:58 Cosopt 2-0.5% Ophth Soln EA EYE 1 applic HS LILIANA Administration Enoxaparin Sodium 40 mg 07/09/19 09:00 07/09/19 10:24 Lovenox SC 40 mg 0900 LILIANA Administration Hydralazine HCl 50 mg 07/08/19 21:00 07/09/19 10:22 Apresoline PO 50 mg TID LILIANA Administration Latanoprost 1 drop 07/08/19 21:00 07/08/19 21:58 Xalatan 0.005% Ophth Soln EA EYE 1 applic HS LILIANA Administration Melatonin 6 mg 07/08/19 21:00 07/08/19 21:57 Melatonin PO 6 mg HS LILIANA Administration Pantoprazole Sodium 40 mg 07/09/19 09:00 07/09/19 10:23 Protonix PO 40 mg DAILY LILIANA Administration Sertraline HCl 100 mg 07/09/19 09:00 07/09/19 10:24 Zoloft PO 100 mg DAILY LILIANA Administration - Exam General Appearance: NAD, awake alert Eye: PERRL, anicteric sclera ENT: normocephalic atraumatic, no oropharyngeal lesions Neck: supple, symmetric, no JVD, no thyromegaly Heart: no murmur, no gallops, no rubs Heart - other findings: irregularly irregular rate Respiratory: CTAB, no wheezes, no rales, no ronchi Gastrointestinal: soft, non-tender, non-distended, normal bowel sounds, no palpable masses, no hepatomegaly, no splenomegaly, no bruit Extremities: no edema Hosp A/P - Plan Chest Xray 07/09: cardiomegaly without acute disease This is an 88 year old female with past medical history of severe , hypertension,COPD, diastolic heart failure who presents with chest pain, found to have pulmonary edema, admitted for acute CHF #Acute hypoxic respiratory failure from diastolic CHF #Severe aortic stenosis #Severe Tricuspid regurgitation #Moderate MR #Mixed respiratory acidosis/metabolic alkalosis - pt with chest pain, pulmonary edema, elevated BNP and 5 pound weight gain - last ECHO 11/2018 showed EF 55-60%. She was getting lasix and metolazone at her rehab facility. Given significant metabolic alkalosis, will give 500 mg acetazolamide. Bicarb has gone up to 41, will hold further diuretics - repeat chest x ray shows no pulmonary congestion - repeat ECHO pending. Cardiology was consulted and is following - initial troponin elevated, repeat x 2 are negative - continue aspirin 81 daily, atorvastatin 10 mg daily Chronic respiratory failure from COPD - continue albuterol as needed and oxygen Hypertensive urgency - improved - continue coreg bid, hydralazine tid - felodipine 2.5 mg daily Iron deficiency anemia - ferrous sulfate 325 mg bid Type II DM - insulin sliding scale - fingersticks achs Dispo: transfer to the floor Code status: full code
[2019-07-09] MEDS: HumaLOG 300 UNITS/3 ML VIAL SC PRN (16:51)
--- NOTE | 2019-07-09 18:37 | PDOC.CPN ---
- Subjective Date: 07/09/19 Time: 18:35 Interval history: She is doing much better. Her breathing is close to baseline. Diuresing well. - Review of Systems General: denies: fever/chills, weight/appetite/sleep changes, night sweats, fatigue Respiratory: denies: cough, congestion, shortness of breath, exercise intolerance Cardiovascular: denies: chest pain, palpitation, edema, paroxysmal nocturnal dyspnea, orthopnea Gastrointestinal: denies: nausea, vomiting, diarrhea, constipation, abd pain, GI bleeding Musculoskeletal: denies: pain, tenderness, stiffness, swelling, arthritis/ arthralgias Neurological: denies: numbness, syncope, seizure, weakness - Objective Allergies/Adverse Reactions: Allergies Allergy/AdvReac Type Severity Reaction Status Date / Time ambrisentan [From Letairis] Allergy Verified 11/27/18 19:48 bosentan [From Tracleer] Allergy Verified 11/27/18 19:48 diphenhydramine Allergy Nausea Verified 11/27/18 19:48 [From Benadryl] isosorbide [From BiDil] Allergy Verified 11/27/18 19:48 metformin Allergy Nausea Verified 11/27/18 19:48 riociguat [From Adempas] Allergy Verified 11/27/18 19:48 sildenafil [From Revatio] Allergy Verified 11/27/18 19:48 tadalafil [From Adcirca] Allergy Verified 11/27/18 19:48 Visit Medications: Current Medications Albuterol Sulfate (Albuterol Sulfate) 1.25 mg NEB Q2H PRN PRN Reason: Wheezing Amlodipine Besylate (Norvasc) 2.5 mg PO DAILY [facility] Last Admin: 07/09/19 10:23 Dose: 2.5 mg Aspirin (Ecotrin) 81 mg PO DAILY [facility] Last Admin: 07/09/19 10:24 Dose: 81 mg Atorvastatin Calcium (Lipitor) 10 mg PO HS [facility] Last Admin: 07/08/19 21:58 Dose: 10 mg Carvedilol (Coreg) 6.25 mg PO BID [facility] Last Admin: 07/09/19 10:23 Dose: 6.25 mg Cholecalciferol (Vitamin D3) 5,000 units PO DAILY [facility] Last Admin: 07/09/19 10:24 Dose: 5,000 units Dextrose/Water (Dextrose 50%) 25 gm SLOW IVP PRN PRN PRN Reason: Hypoglycemia Dorzolamide/Timolol (Cosopt 2-0.5% Ophth Soln) 1 drop EA EYE HS [facility] Last Admin: 07/08/19 21:58 Dose: 1 applic Enoxaparin Sodium (Lovenox) 40 mg SC 0900 [facility] Last Admin: 07/09/19 10:24 Dose: 40 mg Famotidine (Pepcid) 20 mg SLOW IVP DAILY [facility] Glucagon (Glucagon) 1 mg IM PRN PRN PRN Reason: Hypoglycemia Hydralazine HCl (Apresoline) 10 mg SLOW IVP Q4H PRN PRN Reason: SBP Greater Than 180 Hydralazine HCl (Apresoline) 50 mg PO TID [facility] Last Admin: 07/09/19 16:08 Dose: 50 mg Dextrose/Water (D5w) 1,000 mls @ 0 mls/hr IV .Q0M PRN PRN Reason: Hypoglycemia Insulin Human Lispro (Humalog) 0 units SC .MILD SLIDING SCALE PRN PRN Reason: Mild Correctional Scale Last Admin: 07/09/19 16:51 Dose: 3 unit Isosorbide Mononitrate (Ismo) 10 mg PO BID [facility] Latanoprost (Xalatan 0.005% Ophth Soln) 1 drop EA EYE HS [facility] Last Admin: 07/08/19 21:58 Dose: 1 applic Melatonin (Melatonin) 6 mg PO HS [facility] Last Admin: 07/08/19 21:57 Dose: 6 mg Ondansetron HCl (Zofran) 4 mg IVP Q6H PRN PRN Reason: Nausea/Vomiting Pantoprazole Sodium (Protonix) 40 mg PO DAILY [facility] Last Admin: 07/09/19 10:23 Dose: 40 mg Sertraline HCl (Zoloft) 100 mg PO DAILY [facility] Last Admin: 07/09/19 10:24 Dose: 100 mg Sodium Chloride (Flush - Normal Saline) 10 ml IVF Q12HR [facility] Sodium Chloride (Flush - Normal Saline) 10 ml IVF PRN PRN PRN Reason: Saline Flush Vital Signs & Weight: Vital Signs Temp Pulse Resp BP BP Pulse Ox 07/09/19 17:35 97.3 F L 91 18 120/54 L 97 07/09/19 16:08 87 154/82 H 07/09/19 15:30 98.8 F 07/09/19 11:54 98.0 F 07/09/19 10:23 87 154/82 H 07/09/19 10:22 83 153/82 H 07/09/19 07:24 97.4 F L Weight 207 lb 2 oz - Physical Exam General: appears well HEENT: mucus membranes moist Neck: supple neck Cardiac: irregularly regular, systolic murmur Lungs: clear to auscultation Neuro: grossly intact Abdomen: active bowel sounds Extremities: 1+ LE edema Skin: clear Musculoskeletal: no pain - Labs Result Diagrams: 07/09/19 03:19 07/09/19 03:19 Troponin/CKMB CK-MB (CK-2) 0.5 ng/mL (0-6.6) 07/08/19 10:30 Troponin I 0.016 ng/mL (< 0.028) 07/08/19 16:35 - Telemetry Supraventricular conduction: atrial flutter - Assessment/Plan Assessment/Plan: 1. Acute on chronic systolic and diastolic heart failure. 2. S/P mitral ring annuloplasty and epicardial MAZE with mild MR 3. Moderate 4. Dilated Cardiomyopathy EF at 40-45% 5. Severe TR 6. Pulmonary HTN with RVSP at 66mmHg. 7. Chronic afib/aflutter. PLAN: - Continue diuresis with IV lasix today. Switch to PO tomorrow. - Had normal coronaries in 2008. - RV failure will require ongoing PO lasix moving forward. - Aortic valve measurements seem less severe on ths echo likely due to lower EF on current exam. - Improving at this time. - She is not interested in any invasive interventions at this time. Will try to discuss with family.
[2019-07-09] MEDS: Melatonin 3 MG TAB PO SCH (21:51)
[2019-07-09] MEDS: DorzolamidE/Timolol 2%/0.5% Ophth Soln 10 ml Bottle EA EYE SCH (21:52)
[2019-07-09] MEDS: Latanoprost 0.005% Ophth Soln 2.5 ml Bottle EA EYE SCH (21:52)
[2019-07-09] MEDS: Atorvastatin Calcium 10 MG TAB PO SCH (21:52)
[2019-07-10] MEDS: Amlodipine 5 MG TAB PO SCH (08:20)
[2019-07-10] MEDS: Carvedilol 6.25 MG TAB PO SCH ×2 (08:21→21:23)
[2019-07-10] MEDS: Aspirin 81 mg Enteric Coated Tablet PO SCH (08:21)
[2019-07-10] MEDS: Famotidine/PF 20 mg/2ml Vial SLOW IVP SCH (08:22)
[2019-07-10] MEDS: hydrALAZINE 25 MG TAB PO SCH ×3 (08:22→21:23)
[2019-07-10] MEDS: Enoxaparin Sodium 40 MG/0.4 ML SYRINGE SC SCH (08:22)
[2019-07-10] MEDS: Furosemide 40 MG TAB PO SCH ×2 (08:22→15:09)
[2019-07-10 12:09] LABS: Hemoglobin 9.9 g/dL (12.0-16.0); Mean Corpuscular HGB CONC 30.8 g/dL (32.0-36.0); Mean Corpuscular Hemoglobin 32.3 pg (27.0-31.0); Mean Platelet Volume 7.9 fL (7.4-10.4); Platelet Count 146 thou/uL (130-400); RBC Distribution Width 13.9 % (11.5-14.5); Red Blood Cell (RBC) Count 3.05 mill/uL (4.20-5.40); White Blood Cell (WBC) Count 4.8 thou/uL (4.8-10.8)
[2019-07-10 12:20] LABS: BUN (Urea Nitrogen) 35 mg/dL (9.8-20.1); Calc. Creatinine Clearance 42 mL/min (70-130); Calcium 9.2 mg/dL (7.8-10.44); Estimated GFR-MDRD 44; Glucose 183 mg/dL (83-110)
[2019-07-10] MEDS: HumaLOG 300 UNITS/3 ML VIAL SC PRN (12:25)
[2019-07-10 12:30] LABS: Anion Gap 16 mmol/L (10-20); Carbon Dioxide 36 mmol/L (23-31); Chloride 90 mmol/L (98-107); Potassium 3.7 mmol/L (3.5-5.1); Sodium 138 mmol/L (136-145)
[2019-07-10] MEDS: Isosorbide Mononitrate 20 MG TAB PO SCH ×2 (15:08→21:22)
--- NOTE | 2019-07-10 17:49 | PDOC.CPN ---
- Subjective Date: 07/10/19 Time: 17:47 Interval history: No new issues. Breathing at baseline. No chest pain. - Review of Systems General: denies: fever/chills, weight/appetite/sleep changes, night sweats, fatigue Respiratory: denies: cough, congestion, shortness of breath, exercise intolerance Cardiovascular: denies: chest pain, palpitation, edema, paroxysmal nocturnal dyspnea, orthopnea Gastrointestinal: denies: nausea, vomiting, diarrhea, constipation, abd pain, GI bleeding Musculoskeletal: denies: pain, tenderness, stiffness, swelling, arthritis/ arthralgias Neurological: denies: numbness, syncope, seizure, weakness - Objective Allergies/Adverse Reactions: Allergies Allergy/AdvReac Type Severity Reaction Status Date / Time ambrisentan [From Letairis] Allergy Verified 11/27/18 19:48 bosentan [From Tracleer] Allergy Verified 11/27/18 19:48 diphenhydramine Allergy Nausea Verified 11/27/18 19:48 [From Benadryl] metformin Allergy Nausea Verified 11/27/18 19:48 riociguat [From Adempas] Allergy Verified 11/27/18 19:48 sildenafil [From Revatio] Allergy Verified 11/27/18 19:48 tadalafil [From Adcirca] Allergy Verified 11/27/18 19:48 Visit Medications: Current Medications Albuterol Sulfate (Albuterol Sulfate) 1.25 mg NEB Q2H PRN PRN Reason: Wheezing Amlodipine Besylate (Norvasc) 2.5 mg PO DAILY [facility] Last Admin: 07/10/19 08:20 Dose: 2.5 mg Aspirin (Ecotrin) 81 mg PO DAILY [facility] Last Admin: 07/10/19 08:21 Dose: 81 mg Atorvastatin Calcium (Lipitor) 10 mg PO HS [facility] Last Admin: 07/09/19 21:52 Dose: 10 mg Carvedilol (Coreg) 6.25 mg PO BID [facility] Last Admin: 07/10/19 08:21 Dose: 6.25 mg Cholecalciferol (Vitamin D3) 5,000 units PO DAILY [facility] Last Admin: 07/10/19 08:21 Dose: 5,000 units Dextrose/Water (Dextrose 50%) 25 gm SLOW IVP PRN PRN PRN Reason: Hypoglycemia Dorzolamide/Timolol (Cosopt 2-0.5% Ophth Soln) 1 drop EA EYE [facility] Last Admin: 07/09/19 21:52 Dose: 1 applic Enoxaparin Sodium (Lovenox) 40 mg SC 0900 [facility] Last Admin: 07/10/19 08:22 Dose: 40 mg Famotidine (Pepcid) 20 mg SLOW IVP DAILY [facility] Last Admin: 07/10/19 08:22 Dose: 20 mg Furosemide (Lasix) 40 mg PO 1400 [facility] Furosemide (Lasix) 80 mg PO DAILY-AC [facility] Glucagon (Glucagon) 1 mg IM PRN PRN PRN Reason: Hypoglycemia Hydralazine HCl (Apresoline) 10 mg SLOW IVP Q4H PRN PRN Reason: SBP Greater Than 180 Hydralazine HCl (Apresoline) 50 mg PO TID [facility] Last Admin: 07/10/19 15:09 Dose: 50 mg Dextrose/Water (D5w) 1,000 mls @ 0 mls/hr IV .Q0M PRN PRN Reason: Hypoglycemia Insulin Human Lispro (Humalog) 0 units SC .MILD SLIDING SCALE PRN PRN Reason: Mild Correctional Scale Last Admin: 07/10/19 12:25 Dose: 2 unit Isosorbide Mononitrate (Ismo) 10 mg PO BID [facility] Last Admin: 07/10/19 15:08 Dose: Not Given Latanoprost (Xalatan 0.005% Ophth Soln) 1 drop EA EYE [facility] Last Admin: 07/09/19 21:52 Dose: 1 applic Melatonin (Melatonin) 6 mg PO [facility] Last Admin: 07/09/19 21:51 Dose: 6 mg Ondansetron HCl (Zofran) 4 mg IVP Q6H PRN PRN Reason: Nausea/Vomiting Pantoprazole Sodium (Protonix) 40 mg PO DAILY [facility] Last Admin: 07/10/19 08:22 Dose: 40 mg Sertraline HCl (Zoloft) 100 mg PO DAILY [facility] Last Admin: 07/10/19 08:22 Dose: 100 mg Sodium Chloride (Flush - Normal Saline) 10 ml IVF Q12HR [facility] Last Admin: 07/10/19 08:29 Dose: 10 ml Sodium Chloride (Flush - Normal Saline) 10 ml IVF PRN PRN PRN Reason: Saline Flush Vital Signs & Weight: Vital Signs Temp Pulse Pulse Resp BP BP BP 07/10/19 15:33 80 137/67 138/60 07/10/19 15:07 98.4 F 85 19 140/61 07/10/19 11:04 97.6 F 90 20 122/59 L 07/10/19 07:39 97.7 F 95 22 H 141/62 H Pulse Ox 07/10/19 15:33 07/10/19 15:07 94 L 07/10/19 11:04 95 07/10/19 07:39 94 L Weight 207 lb 8 oz - Physical Exam General: appears well HEENT: mucus membranes moist Neck: supple neck Cardiac: regular rate and rhythm Lungs: normal breath sounds Neuro: no lateralizing findings Abdomen: active bowel sounds Extremities: no edema Skin: clear Musculoskeletal: no pain - Labs Result Diagrams: 07/10/19 11:34 07/10/19 11:35 Troponin/CKMB CK-MB (CK-2) 0.5 ng/mL (0-6.6) 07/08/19 10:30 Troponin I 0.016 ng/mL (< 0.028) 07/08/19 16:35 - Telemetry Sinus rhythms and dysrhythmias: sinus rhythm Supraventricular conduction: atrial fibrillation - Assessment/Plan Assessment/Plan: 1. Acute on chronic systolic and diastolic heart failure. 2. S/P mitral ring annuloplasty and epicardial MAZE with mild MR 3. Moderate 4. Dilated Cardiomyopathy EF at 40-45% 5. Severe TR 6. Pulmonary HTN with RVSP at 66mmHg. 7. Chronic afib/aflutter. PLAN: - PO lasix to 80mg in AM and 40 mg PM. Metolazone only as needed if increased weight or edema. - Normal coronaries in 2008. - Aortic valve measurements seem less severe on echo likely due to lower EF. - She is not interested in any invasive interventions at this time. - May discharge tomorrow if she remains stable.
[2019-07-10] MEDS: Atorvastatin Calcium 10 MG TAB PO SCH (21:22)
[2019-07-10] MEDS: Melatonin 3 MG TAB PO SCH (21:23)
[2019-07-10] MEDS: Latanoprost 0.005% Ophth Soln 2.5 ml Bottle EA EYE SCH (21:24)
[2019-07-10] MEDS: DorzolamidE/Timolol 2%/0.5% Ophth Soln 10 ml Bottle EA EYE SCH (21:24)
[2019-07-11 05:03] LABS: BUN (Urea Nitrogen) 42 mg/dL (9.8-20.1); Calc. Creatinine Clearance 35 mL/min (70-130); Calcium 9.1 mg/dL (7.8-10.44); Estimated GFR-MDRD 35; Glucose 123 mg/dL (83-110)
[2019-07-11 05:10] LABS: Hemoglobin 9.4 g/dL (12.0-16.0); Mean Corpuscular HGB CONC 29.5 g/dL (32.0-36.0); Mean Corpuscular Hemoglobin 30.6 pg (27.0-31.0); Mean Platelet Volume 8.3 fL (7.4-10.4); Platelet Count 156 thou/uL (130-400); RBC Distribution Width 13.9 % (11.5-14.5); Red Blood Cell (RBC) Count 3.07 mill/uL (4.20-5.40); White Blood Cell (WBC) Count 5.1 thou/uL (4.8-10.8)
[2019-07-11 05:12] LABS: Anion Gap 15 mmol/L (10-20); Carbon Dioxide 37 mmol/L (23-31); Chloride 91 mmol/L (98-107); Potassium 3.6 mmol/L (3.5-5.1); Sodium 139 mmol/L (136-145)
[2019-07-11] MEDS ORDERED: Furosemide 80 MG TAB PO SCH (07:30)
[2019-07-11] MEDS ORDERED: Sodium Chloride 0.9% 250 ML IV SCH (08:00)
[2019-07-11] MEDS: Amlodipine 5 MG TAB PO SCH (09:20)
[2019-07-11] MEDS: Carvedilol 6.25 MG TAB PO SCH ×2 (09:20→20:51)
[2019-07-11] MEDS: Aspirin 81 mg Enteric Coated Tablet PO SCH (09:20)
[2019-07-11] MEDS: Famotidine/PF 20 mg/2ml Vial SLOW IVP SCH (09:21)
[2019-07-11] MEDS: Enoxaparin Sodium 40 MG/0.4 ML SYRINGE SC SCH (09:21)
[2019-07-11] MEDS: Isosorbide Mononitrate 20 MG TAB PO SCH ×2 (09:21→20:51)
[2019-07-11] MEDS: hydrALAZINE 25 MG TAB PO SCH ×3 (09:21→20:51)
--- NOTE | 2019-07-11 10:52 | ULT ---
STANDARD BILATERAL RENAL ULTRASOUND: HISTORY: Elevated creatinine. COMPARISON: Renal ultrasound from 11/21/2018. TECHNIQUE: Real-time quintanilla-scale and color evaluation of the kidneys was performed. FINDINGS: The right kidney measures 7.5 x 3.7 x 6 cm and the left kidney is unable to be evaluated. There is a cyst on the inferior pole of the right kidney measuring up to 2.1 cm. This appears to be s lightly enlarged from the comparison examination, although it could be sequela of differences in loca tion of measurement. The urinary bladder is unremarkable. The endometrial thickness is 9 mm. IMPRESSION: 1. Nonvisualization of left kidney. 2. Slight interval size increase of the right renal cyst. 3. Thickened endometrium. Non emergent pelvic ultrasound with Doppler is recommended. POS: [facility]
--- NOTE | 2019-07-11 11:51 | CON ---
DATE OF CONSULTATION: 07/11/2019 CONSULTING PHYSICIAN: Aisha Adams MD REASON FOR CONSULTATION: Acute kidney injury. REASON FOR ADMISSION: Shortness of breath. HISTORY OF PRESENT ILLNESS: This is an 88-year-old female with history of CHF; hypertension; type 2 diabetes; and CKD, stage 3, came to the hospital with shortness of breath, has been evaluated for CHF, and was on diuretic therapy. The patient was found to have an elevated creatinine, and Nephrology was consulted. The patient is feeling better. No chest pain. No shortness of breath. No fever or chills even though she is a poor historian. PAST MEDICAL HISTORY: Positive for CHF, aortic stenosis, pulmonary hypertension, hypertension, atrial fibrillation, CKD, and COPD. PAST SURGICAL HISTORY: Mitral valve repair. HOME MEDICATIONS: Reviewed. ALLERGIES: 1. AMBRISENTAN. 2. BOSENTAN. 3. DIPHENHYDRAMINE. 4. METFORMIN. 5. SILDENAFIL. SOCIAL HISTORY: No smoking, alcohol, or illicit drug use. FAMILY HISTORY: No history of kidney disease. REVIEW OF SYSTEMS: CONSTITUTIONAL: Negative for weight loss or gain, ability to conduct usual activities. SKIN: Negative for rash, itching. EYES: Negative for double vision, pain. ENT/MOUTH: Negative for nose bleeding, neck stiffness, pain, tenderness. CARDIOVASCULAR: Negative for palpitations, dyspnea on exertion, orthopnea. RESPIRATORY: Negative for shortness of breath, wheezing, cough, hemoptysis, fever or night sweats. GASTROINTESTINAL: Negative for poor appetite, abdominal pain, heartburn, nausea, vomiting, constipation, or diarrhea. GENITOURINARY: Negative for urgency, frequency, dysuria, nocturia. MUSCULOSKELETAL: Negative for pain, swelling. NEUROLOGIC/PSYCHIATRIC: Negative for anxiety, depression. ALLERGY/IMMUNOLOGIC: Negative for skin rash, bleeding tendency. PHYSICAL EXAMINATION: GENERAL: This is a well-built female, in no apparent distress. VITAL SIGNS: Temperature 98.6, pulse 74, respiratory rate 18, blood pressure 119/62. HEENT: Atraumatic and normocephalic. Oral mucosa is moist. NECK: Supple. CARDIOVASCULAR: S1 and S2 heard. Rate and rhythm regular. RESPIRATORY: Clear. GASTROINTESTINAL: Abdomen is soft. MUSCULOSKELETAL: 1+ edema. DERMATOLOGIC: No skin rash. NEUROLOGIC: Alert and awake. PSYCHIATRIC: Normal mood and affect. LABORATORY DATA: Hemoglobin is 9.4. Potassium is 3.6, BUN is 42, creatinine is 1.6. ASSESSMENT AND PLAN: 1. Acute kidney injury on chronic kidney disease, stage 3, most likely secondary to hemodynamically-mediated renal injury. Recommend to hold Lasix for now and hydration as tolerated. 2. Edema, controlled. 3. Cardiorenal syndrome as above. 4. Alkalosis, most likely . 5. Moderate aortic stenosis. 6. Diastolic dysfunction. 7. History of pulmonary hypertension. 8. Anemia of chronic disease. Recommend to hold Lasix and avoid nephrotoxins. We will follow. Thank you for the consult. Job ID: [id number]
--- NOTE | 2019-07-11 13:33 | ULT ---
PELVIC ULTRASOUND: HISTORY: Thickening of the endometrium. COMPARISON: None. TECHNIQUE: Transabdominal sonographic images of the pelvis are obtained. FINDINGS: The uterus is heterogeneous in appearance with echogenic foci seen, probably related to calcification s and probably vascular calcifications in the uterus. The endometrium is thickened for a postmenopaus al female patient, measuring 1 cm. No fluid or fluid collection is seen in the endometrial canal. The ovaries are not visualized bilaterally. No adnexal mass is appreciated. There is shadowing from b owel gas seen in each adnexal region. IMPRESSION: 1. Thickening of the endometrium which can be seen with endometrial hyperplasia in patients on hormon e replacement therapy, however endometrial carcinoma is also a differential consideration and diagnos is of exclusion. 2. Nonspecific heterogeneity of the uterus. 3. Nonvisualization of the bilateral ovaries. POS: [facility]
[2019-07-11] MEDS ORDERED: Furosemide 40 MG TAB PO SCH (14:00)
[2019-07-11 14:48] LABS: Bacteria/HPF None Seen HPF (None Seen); Bilirubin Negative (Negative); Blood, Urine 2+ (Negative); Clarity Clear (Clear); Glucose, Urine (Dipstick) Normal (Negative); Leukocyte Negative Leu/uL (Negative); Nitrite Negative (Negative); Protein, Urine (Dipstick) 20 mg/dL (Neg-Trace); RBC/HPF 21-50 HPF (0-3); Squamous Epithelial 0-3 HPF (0-3)
[2019-07-11 14:51] LABS: Urine Culture Reflex Yes Yes
[2019-07-11] MEDS: Acetaminophen 325 MG TAB PO PRN (15:16)
[2019-07-11 15:55] LABS: BUN (Urea Nitrogen) 43 mg/dL (9.8-20.1); Calc. Creatinine Clearance 33 mL/min (70-130); Calcium 9.3 mg/dL (7.8-10.44); Estimated GFR-MDRD 33; Glucose 158 mg/dL (83-110)
--- NOTE | 2019-07-11 16:07 | PDOC.CPN ---
- Subjective Date: 07/11/19 Time: 16:06 Interval history: No new issues. - Review of Systems General: denies: fever/chills, weight/appetite/sleep changes, night sweats, fatigue Respiratory: denies: cough, congestion, shortness of breath, exercise intolerance Cardiovascular: denies: chest pain, palpitation, edema, paroxysmal nocturnal dyspnea, orthopnea Gastrointestinal: denies: nausea, vomiting, diarrhea, constipation, abd pain, GI bleeding Musculoskeletal: denies: pain, tenderness, stiffness, swelling, arthritis/ arthralgias Neurological: denies: numbness, syncope, seizure, weakness - Objective Allergies/Adverse Reactions: Allergies Allergy/AdvReac Type Severity Reaction Status Date / Time ambrisentan [From Letairis] Allergy Verified 11/27/18 19:48 bosentan [From Tracleer] Allergy Verified 11/27/18 19:48 diphenhydramine Allergy Nausea Verified 11/27/18 19:48 [From Benadryl] metformin Allergy Nausea Verified 11/27/18 19:48 riociguat [From Adempas] Allergy Verified 11/27/18 19:48 sildenafil [From Revatio] Allergy Verified 11/27/18 19:48 tadalafil [From Adcirca] Allergy Verified 11/27/18 19:48 Visit Medications: Current Medications Acetaminophen (Tylenol) 650 mg PO Q6H PRN PRN Reason: Pain Last Admin: 07/11/19 15:16 Dose: 650 mg Albuterol Sulfate (Albuterol Sulfate) 1.25 mg NEB Q2H PRN PRN Reason: Wheezing Amlodipine Besylate (Norvasc) 2.5 mg PO DAILY [facility] Last Admin: 07/11/19 09:20 Dose: 2.5 mg Aspirin (Ecotrin) 81 mg PO DAILY [facility] Last Admin: 07/11/19 09:20 Dose: 81 mg Atorvastatin Calcium (Lipitor) 10 mg PO HS [facility] Last Admin: 07/10/19 21:22 Dose: 10 mg Carvedilol (Coreg) 6.25 mg PO BID [facility] Last Admin: 07/11/19 09:20 Dose: 6.25 mg Cholecalciferol (Vitamin D3) 5,000 units PO DAILY [facility] Last Admin: 07/11/19 09:20 Dose: 5,000 units Dextrose/Water (Dextrose 50%) 25 gm SLOW IVP PRN PRN PRN Reason: Hypoglycemia Dorzolamide/Timolol (Cosopt 2-0.5% Ophth Soln) 1 drop EA EYE HS [facility] Last Admin: 07/10/19 21:24 Dose: 1 applic Enoxaparin Sodium (Lovenox) 30 mg SC 0900 [facility] Famotidine (Pepcid) 20 mg SLOW IVP DAILY [facility] Last Admin: 07/11/19 09:21 Dose: 20 mg Furosemide (Lasix) 40 mg PO 1400 [facility] Last Admin: 07/11/19 14:52 Dose: Not Given Glucagon (Glucagon) 1 mg IM PRN PRN PRN Reason: Hypoglycemia Hydralazine HCl (Apresoline) 10 mg SLOW IVP Q4H PRN PRN Reason: SBP Greater Than 180 Hydralazine HCl (Apresoline) 50 mg PO TID [facility] Last Admin: 07/11/19 15:16 Dose: 50 mg Dextrose/Water (D5w) 1,000 mls @ 0 mls/hr IV .Q0M PRN PRN Reason: Hypoglycemia Insulin Human Lispro (Humalog) 0 units SC .MILD SLIDING SCALE PRN PRN Reason: Mild Correctional Scale Last Admin: 07/10/19 12:25 Dose: 2 unit Isosorbide Mononitrate (Ismo) 10 mg PO BID [facility] Last Admin: 07/11/19 09:21 Dose: 10 mg Latanoprost (Xalatan 0.005% Ophth Soln) 1 drop EA EYE HS [facility] Last Admin: 07/10/19 21:24 Dose: 1 drop Melatonin (Melatonin) 6 mg PO HS [facility] Last Admin: 07/10/19 21:23 Dose: 6 mg Ondansetron HCl (Zofran) 4 mg IVP Q6H PRN PRN Reason: Nausea/Vomiting Pantoprazole Sodium (Protonix) 40 mg PO DAILY [facility] Last Admin: 07/11/19 09:22 Dose: 40 mg Sertraline HCl (Zoloft) 100 mg PO DAILY [facility] Last Admin: 07/11/19 09:22 Dose: 100 mg Sodium Chloride (Flush - Normal Saline) 10 ml IVF Q12HR [facility] Last Admin: 07/11/19 09:22 Dose: 10 ml Sodium Chloride (Flush - Normal Saline) 10 ml IVF PRN PRN PRN Reason: Saline Flush Vital Signs & Weight: Vital Signs Temp Pulse Pulse Pulse Resp BP BP 07/11/19 15:16 98.5 F 95 18 07/11/19 11:48 97.5 F L 95 18 07/11/19 09:39 119 H 107 H 130/80 117/58 L 07/11/19 09:20 94 07/11/19 08:08 98.6 F 94 18 BP Pulse Ox 07/11/19 15:16 132/69 98 07/11/19 11:48 120/58 L 96 07/11/19 09:39 07/11/19 09:20 07/11/19 08:08 119/62 95 Weight 207 lb 12.8 oz - Physical Exam General: appears well HEENT: mucus membranes moist Neck: supple neck Cardiac: irregularly regular Lungs: normal breath sounds Neuro: grossly intact Abdomen: active bowel sounds Extremities: no edema Skin: clear Musculoskeletal: no pain - Labs Result Diagrams: 07/11/19 04:17 07/11/19 15:26 Troponin/CKMB CK-MB (CK-2) 0.5 ng/mL (0-6.6) 07/08/19 10:30 Troponin I 0.016 ng/mL (< 0.028) 07/08/19 16:35 - Telemetry Supraventricular conduction: atrial fibrillation - Assessment/Plan Assessment/Plan: 1. Acute on chronic systolic and diastolic heart failure. 2. S/P mitral ring annuloplasty and epicardial MAZE with mild MR 3. Moderate 4. Dilated Cardiomyopathy EF at 40-45% 5. Severe TR 6. Pulmonary HTN with RVSP at 66mmHg. 7. Chronic afib/aflutter. PLAN: - Worsening renal function with lower dose of lasix. - Hold lasix and most likely will need only as needed. - Would give small IV NS bolus. - May discharge tomorrow if her creatinine improves on PRN lasix for edema or weight gain. - Aortic valve measurements seem less severe on echo likely due to lower EF. - She is not interested in any invasive interventions at this time.
[2019-07-11 16:09] LABS: Anion Gap 15 mmol/L (10-20); Carbon Dioxide 37 mmol/L (23-31); Chloride 88 mmol/L (98-107); Potassium 3.7 mmol/L (3.5-5.1); Sodium 136 mmol/L (136-145)
--- NOTE | 2019-07-11 17:58 | PDOC.HOSPP ---
- Subjective Encounter Date: 07/11/19 Encounter Time: 12:00 Subjective: F/u: heart failure Patient denies shortness of breath or chest pain. She is on nasal cannula. No abdominal pain - Objective Vital Signs & Weight: Vital Signs (12 hours) Temp Pulse Pulse Pulse Resp BP BP 07/11/19 15:16 98.5 F 95 18 07/11/19 11:48 97.5 F L 95 18 07/11/19 09:39 119 H 107 H 130/80 117/58 L 07/11/19 09:20 94 07/11/19 08:08 98.6 F 94 18 BP Pulse Ox 07/11/19 15:16 132/69 98 07/11/19 11:48 120/58 L 96 07/11/19 09:39 07/11/19 09:20 07/11/19 08:08 119/62 95 Weight Weight 207 lb 12.8 oz Most Recent Monitor Data Heart Rate from ECG 96 NIBP 130/61 NIBP BP-Mean 84 Respiration from ECG 35 SpO2 100 I&O: 07/10/19 07/11/19 07/12/19 06:59 06:59 06:59 Intake Total 100 600 Output Total 300 300 Balance -200 300 Result Diagrams: 07/11/19 04:17 07/11/19 15:26 Additional Labs: Accuchecks 07/11/19 07/11/19 07/11/19 16:40 10:46 05:16 POC Glucose 156 H 159 H 141 H 07/10/19 20:11 POC Glucose 135 H Hospitalist ROS - Review of Systems Constitutional: denies: fever, chills Respiratory: denies: cough, dry - Medication Medications: Active Medications Generic Name Dose Route Start Last Admin Trade Name Freq PRN Reason Stop Dose Admin Acetaminophen 650 mg 07/11/19 14:28 07/11/19 15:16 Tylenol PO 650 mg Q6H PRN Administration Pain Amlodipine Besylate 2.5 mg 07/09/19 09:00 07/11/19 09:20 Norvasc PO 2.5 mg DAILY [facility] Administration Aspirin 81 mg 07/09/19 09:00 07/11/19 09:20 Ecotrin PO 81 mg DAILY [facility] Administration Atorvastatin Calcium 10 mg 07/08/19 21:00 07/10/19 21:22 Lipitor PO 10 mg HS [facility] Administration Carvedilol 6.25 mg 07/08/19 21:00 07/11/19 09:20 Coreg PO 6.25 mg BID [facility] Administration Cholecalciferol 5,000 units 07/09/19 09:00 07/11/19 09:20 Vitamin D3 PO 5,000 units DAILY [facility] Administration Dorzolamide/Timolol 1 drop 07/08/19 21:00 07/10/19 21:24 Cosopt 2-0.5% Ophth Soln EA EYE 1 applic HS [facility] Administration Famotidine 20 mg 07/10/19 09:00 07/11/19 09:21 Pepcid SLOW IVP 20 mg DAILY [facility] Administration Furosemide 40 mg 07/11/19 14:00 07/11/19 14:52 Lasix PO Not Given 1400 [facility] Hydralazine HCl 50 mg 07/08/19 21:00 07/11/19 15:16 Apresoline PO 50 mg TID [facility] Administration Insulin Human Lispro 0 units 07/08/19 17:40 07/10/19 12:25 Humalog SC 2 unit .MILD SLIDING SCALE PRN Administration Mild Correctional Scale Isosorbide Mononitrate 10 mg 07/08/19 21:00 07/11/19 09:21 Ismo PO 10 mg BID [facility] Administration Latanoprost 1 drop 07/08/19 21:00 07/10/19 21:24 Xalatan 0.005% Ophth Soln EA EYE 1 drop HS [facility] Administration Melatonin 6 mg 07/08/19 21:00 07/10/19 21:23 Melatonin PO 6 mg HS [facility] Administration Pantoprazole Sodium 40 mg 07/09/19 09:00 07/11/19 09:22 Protonix PO 40 mg DAILY [facility] Administration Sertraline HCl 100 mg 07/09/19 09:00 07/11/19 09:22 Zoloft PO 100 mg DAILY [facility] Administration Sodium Chloride 10 ml 07/09/19 21:00 07/11/19 09:22 Flush - Normal Saline IVF 10 ml Q12HR [facility] Administration - Exam General Appearance: NAD, awake alert Eye: PERRL, anicteric sclera ENT: normocephalic atraumatic, no oropharyngeal lesions Neck: no JVD Heart: RRR, no murmur, no gallops, no rubs Respiratory: CTAB, no wheezes, no rales, no ronchi Gastrointestinal: soft, non-tender, non-distended Extremities: no edema Hosp A/P - Plan Chest Xray 07/09: cardiomegaly without acute disease ECHO 07/08: moderate , EF 40-45%, severe TR, mild MR, mild IA, RV systolic pressure of 61 This is an 88 year old female with past medical history of severe , hypertension,COPD, diastolic heart failure who presents with chest pain, found to have pulmonary edema, admitted for acute CHF #Acute hypoxic respiratory failure from systolic CHF #Severe aortic stenosis #Severe Tricuspid regurgitation #Moderate MR #Mixed respiratory acidosis/metabolic alkalosis - pt with chest pain, pulmonary edema, elevated BNP and 5 pound weight gain - repeat ECHO shows EF 40-45%, previously 60-65%. Aortic stenosis is moderate - She was getting lasix and metolazone at her rehab facility. Given significant metabolic alkalosis, was given 500 mg acetazolamide on admission. Repeat chest x ray 07/09 shows no pulmonary congestion. Got lasix 40 mg po bid - creatinine has gone up to 1.67. Will hold further diuretics. May d/c on lasix prn instead tomorrow - initial troponin elevated, repeat x 2 are negative - continue aspirin 81 daily, atorvastatin 10 mg daily Chronic respiratory failure from COPD - continue albuterol as needed and oxygen Hypertensive urgency - improved - continue coreg bid, hydralazine tid - felodipine 2.5 mg daily Iron deficiency anemia - ferrous sulfate 325 mg bid Type II DM - insulin sliding scale - fingersticks achs Dispo: transfer to the floor Code status: full code
[2019-07-11] MEDS: Atorvastatin Calcium 10 MG TAB PO SCH (20:51)
[2019-07-11] MEDS: Latanoprost 0.005% Ophth Soln 2.5 ml Bottle EA EYE SCH (20:51)
[2019-07-11] MEDS: Melatonin 3 MG TAB PO SCH (20:51)
[2019-07-11] MEDS: DorzolamidE/Timolol 2%/0.5% Ophth Soln 10 ml Bottle EA EYE SCH (21:14)
[2019-07-12 04:37] LABS: Hemoglobin 9.5 g/dL (12.0-16.0); Mean Corpuscular HGB CONC 30.9 g/dL (32.0-36.0); Mean Corpuscular Hemoglobin 31.4 pg (27.0-31.0); Mean Platelet Volume 7.8 fL (7.4-10.4); Platelet Count 153 thou/uL (130-400); RBC Distribution Width 13.8 % (11.5-14.5); Red Blood Cell (RBC) Count 3.01 mill/uL (4.20-5.40); White Blood Cell (WBC) Count 4.4 thou/uL (4.8-10.8)
[2019-07-12 04:57] LABS: Anion Gap 13 mmol/L (10-20); BUN (Urea Nitrogen) 43 mg/dL (9.8-20.1); Calc. Creatinine Clearance 34 mL/min (70-130); Calcium 9.2 mg/dL (7.8-10.44); Carbon Dioxide 37 mmol/L (23-31); Chloride 90 mmol/L (98-107); Estimated GFR-MDRD 33; Glucose 120 mg/dL (83-110); Potassium 3.5 mmol/L (3.5-5.1); Sodium 136 mmol/L (136-145)
--- NOTE | 2019-07-12 08:32 | PRG ---
DATE OF SERVICE: 07/12/2019 SUBJECTIVE: Patient was seen and examined at bedside and overnight events noted. Patient denies any shortness of breath or chest pain or palpitation. No history of nausea or vomiting or diarrhea or fever or chills or cramps. OBJECTIVE: GENERAL: This is an elderly female, in no apparent distress. VITAL SIGNS: Temperature 97.7. Heart rate 76. Respiratory rate 23. Blood pressure 123/79. HEENT: Atraumatic, normocephalic. Oral mucosa is moist. NECK: Supple. CARDIOVASCULAR: S1, S2 heard. Rate and rhythm regular. RESPIRATORY: Clear to auscultation. GASTROINTESTINAL: Abdomen is soft. MUSCULOSKELETAL: No tenderness. No edema. DERMATOLOGIC: No skin rash. NEUROLOGIC: Alert and awake and oriented x3. No focal neurologic deficits. Moving all the extremities. PSYCHIATRIC: Mood and affect normal. LABORATORY DATA: Potassium 3.5, BUN is 43, and creatinine is 1.7. ASSESSMENT AND PLAN: 1. Acute kidney injury on chronic kidney disease, stage 3. Renal function seems to be stable, most likely from cardiorenal syndrome. Lasix on hold. Okay to start back on Lasix 40 p.o. b.i.d. in a day or so. 2. Edema, controlled. 3. Cardiorenal syndrome. 4. Alkalosis secondary to diuretic. 5. Moderate aortic stenosis. 6. Diastolic dysfunction. 7. History of pulmonary hypertension. 8. Anemia of chronic disease. Renal function is stable. Cautious use of diuretics recommended at this time. Job ID: [id number]
[2019-07-12] MEDS: Aspirin 81 mg Enteric Coated Tablet PO SCH (09:17)
[2019-07-12] MEDS: Carvedilol 6.25 MG TAB PO SCH ×2 (09:17→21:01)
[2019-07-12] MEDS: Amlodipine 5 MG TAB PO SCH (09:17)
[2019-07-12] MEDS: Isosorbide Mononitrate 20 MG TAB PO SCH ×2 (09:17→21:01)
[2019-07-12] MEDS: Sodium Chloride 0.9% 1,000 ML IV SCH ×2 (09:17→23:12)
[2019-07-12] MEDS: hydrALAZINE 25 MG TAB PO SCH ×3 (09:18→21:01)
[2019-07-12] MEDS: Famotidine/PF 20 mg/2ml Vial SLOW IVP SCH (09:18)
[2019-07-12] MEDS: Enoxaparin Sodium 30 MG/0.3 ML SYRINGE SC SCH (09:18)
[2019-07-12] MEDS ORDERED: Polyethylene Glycol 3350 17 GM Packet PO PRN (11:48)
--- NOTE | 2019-07-12 12:00 | PDOC.CPN ---
- Subjective Date: 07/12/19 Time: 11:58 Interval history: No new issues. No chest pain. - Review of Systems ROS unobtainable: due to mental status - Objective Allergies/Adverse Reactions: Allergies Allergy/AdvReac Type Severity Reaction Status Date / Time ambrisentan [From Letairis] Allergy Verified 11/27/18 19:48 bosentan [From Tracleer] Allergy Verified 11/27/18 19:48 diphenhydramine Allergy Nausea Verified 11/27/18 19:48 [From Benadryl] metformin Allergy Nausea Verified 11/27/18 19:48 riociguat [From Adempas] Allergy Verified 11/27/18 19:48 sildenafil [From Revatio] Allergy Verified 11/27/18 19:48 tadalafil [From Adcirca] Allergy Verified 11/27/18 19:48 Visit Medications: Current Medications Acetaminophen (Tylenol) 650 mg PO Q6H PRN PRN Reason: Pain Last Admin: 07/11/19 15:16 Dose: 650 mg Albuterol Sulfate (Albuterol Sulfate) 1.25 mg NEB Q2H PRN PRN Reason: Wheezing Amlodipine Besylate (Norvasc) 2.5 mg PO DAILY [facility] Last Admin: 07/12/19 09:17 Dose: 2.5 mg Aspirin (Ecotrin) 81 mg PO DAILY [facility] Last Admin: 07/12/19 09:17 Dose: 81 mg Atorvastatin Calcium (Lipitor) 10 mg PO HS [facility] Last Admin: 07/11/19 20:51 Dose: 10 mg Carvedilol (Coreg) 6.25 mg PO BID [facility] Last Admin: 07/12/19 09:17 Dose: 6.25 mg Cholecalciferol (Vitamin D3) 5,000 units PO DAILY [facility] Last Admin: 07/12/19 09:18 Dose: 5,000 units Dextrose/Water (Dextrose 50%) 25 gm SLOW IVP PRN PRN PRN Reason: Hypoglycemia Dorzolamide/Timolol (Cosopt 2-0.5% Ophth Soln) 1 drop EA EYE HS [facility] Last Admin: 07/11/19 21:14 Dose: Not Given Enoxaparin Sodium (Lovenox) 30 mg SC 0900 [facility] Last Admin: 07/12/19 09:18 Dose: 30 mg Famotidine (Pepcid) 20 mg SLOW IVP DAILY [facility] Last Admin: 07/12/19 09:18 Dose: 20 mg Glucagon (Glucagon) 1 mg IM PRN PRN PRN Reason: Hypoglycemia Hydralazine HCl (Apresoline) 10 mg SLOW IVP Q4H PRN PRN Reason: SBP Greater Than 180 Hydralazine HCl (Apresoline) 50 mg PO TID [facility] Last Admin: 07/12/19 09:18 Dose: 50 mg Dextrose/Water (D5w) 1,000 mls @ 0 mls/hr IV .Q0M PRN PRN Reason: Hypoglycemia Sodium Chloride (Normal Saline 0.9%) 1,000 mls @ 75 mls/hr IV .[id number] [facility] Last Admin: 07/12/19 09:17 Dose: 1,000 mls Insulin Human Lispro (Humalog) 0 units SC .MILD SLIDING SCALE PRN PRN Reason: Mild Correctional Scale Last Admin: 07/10/19 12:25 Dose: 2 unit Isosorbide Mononitrate (Ismo) 10 mg PO BID [facility] Last Admin: 07/12/19 09:17 Dose: 10 mg Latanoprost (Xalatan 0.005% Ophth Soln) 1 drop EA EYE HS [facility] Last Admin: 07/11/19 20:51 Dose: 1 drop Melatonin (Melatonin) 6 mg PO HS [facility] Last Admin: 07/11/19 20:51 Dose: 6 mg Ondansetron HCl (Zofran) 4 mg IVP Q6H PRN PRN Reason: Nausea/Vomiting Pantoprazole Sodium (Protonix) 40 mg PO DAILY [facility] Last Admin: 07/12/19 09:17 Dose: 40 mg Polyethylene Glycol (Miralax) 17 gm PO DAILYPRN PRN PRN Reason: Constipation Senna/Docusate Sodium (Senokot S) 1 tab PO BID [facility] Sertraline HCl (Zoloft) 100 mg PO DAILY [facility] Last Admin: 07/12/19 09:18 Dose: 100 mg Sodium Chloride (Flush - Normal Saline) 10 ml IVF Q12HR [facility] Last Admin: 07/12/19 09:18 Dose: 10 ml Sodium Chloride (Flush - Normal Saline) 10 ml IVF PRN PRN PRN Reason: Saline Flush Vital Signs & Weight: Vital Signs Temp Pulse Resp BP Pulse Ox 07/12/19 07:27 98.1 F 104 H 18 140/76 96 07/12/19 03:20 97.7 F 116 H 23 H 123/79 96 Weight 213 lb - Physical Exam General: appears well HEENT: mucus membranes moist Neck: supple neck Cardiac: irregularly regular Lungs: clear to auscultation Neuro: no lateralizing findings Abdomen: active bowel sounds Extremities: no edema Skin: clear Musculoskeletal: no pain - Labs Result Diagrams: 07/12/19 04:13 07/12/19 04:13 Troponin/CKMB CK-MB (CK-2) 0.5 ng/mL (0-6.6) 07/08/19 10:30 Troponin I 0.016 ng/mL (< 0.028) 07/08/19 16:35 - Telemetry Supraventricular conduction: atrial fibrillation - Assessment/Plan Assessment/Plan: 1. Acute on chronic systolic and diastolic heart failure. 2. S/P mitral ring annuloplasty and epicardial MAZE with mild MR 3. Moderate 4. Dilated Cardiomyopathy EF at 40-45% 5. Severe TR 6. Pulmonary HTN with RVSP at 66mmHg. 7. Chronic afib/aflutter. PLAN: - Renal function mildly improved. - Continue lasix as needed for edema and weight gain for now. - Would keep pone more day till creatinine is better. - Aortic valve measurements seem less severe on echo likely due to lower EF. - She is not interested in any invasive interventions at this time.
--- NOTE | 2019-07-12 12:06 | PDOC.HOSPP ---
- Subjective Encounter Date: 07/12/19 Encounter Time: 12:05 Subjective: F/u :CHF The patient has no complaints. She says SOB is the same, no chest pain. She is having BM per nurse - Objective Vital Signs & Weight: Vital Signs (12 hours) Temp Pulse Resp BP Pulse Ox 07/12/19 07:27 98.1 F 104 H 18 140/76 96 07/12/19 03:20 97.7 F 116 H 23 H 123/79 96 Weight Weight 213 lb Most Recent Monitor Data Heart Rate from ECG 96 NIBP 130/61 NIBP BP-Mean 84 Respiration from ECG 35 SpO2 100 I&O: 07/11/19 07/12/19 07/13/19 06:59 06:59 06:59 Intake Total 600 1130 Output Total 300 450 Balance 300 680 Result Diagrams: 07/12/19 04:13 07/12/19 04:13 Additional Labs: Accuchecks 07/12/19 07/12/19 07/11/19 11:02 05:56 20:10 POC Glucose 151 H 131 H 156 H 07/11/19 16:40 POC Glucose 156 H Hospitalist ROS - Review of Systems Constitutional: denies: fever, chills - Medication Medications: Active Medications Generic Name Dose Route Start Last Admin Trade Name Freq PRN Reason Stop Dose Admin Acetaminophen 650 mg 07/11/19 14:28 07/11/19 15:16 Tylenol PO 650 mg Q6H PRN Administration Pain Amlodipine Besylate 2.5 mg 07/09/19 09:00 07/12/19 09:17 Norvasc PO 2.5 mg DAILY [facility] Administration Aspirin 81 mg 07/09/19 09:00 07/12/19 09:17 Ecotrin PO 81 mg DAILY [facility] Administration Atorvastatin Calcium 10 mg 07/08/19 21:00 07/11/19 20:51 Lipitor PO 10 mg HS [facility] Administration Carvedilol 6.25 mg 07/08/19 21:00 07/12/19 09:17 Coreg PO 6.25 mg BID [facility] Administration Cholecalciferol 5,000 units 07/09/19 09:00 07/12/19 09:18 Vitamin D3 PO 5,000 units DAILY [facility] Administration Dorzolamide/Timolol 1 drop 07/08/19 21:00 07/11/19 21:14 Cosopt 2-0.5% Ophth Soln EA EYE Not Given HS [facility] Enoxaparin Sodium 30 mg 07/12/19 09:00 07/12/19 09:18 Lovenox SC 30 mg 0900 [facility] Administration Famotidine 20 mg 07/10/19 09:00 07/12/19 09:18 Pepcid SLOW IVP 20 mg DAILY [facility] Administration Hydralazine HCl 50 mg 07/08/19 21:00 07/12/19 09:18 Apresoline PO 50 mg TID [facility] Administration Sodium Chloride 1,000 mls @ 75 mls/hr 07/12/19 07:30 07/12/19 09:17 Normal Saline 0.9% IV 1,000 mls .[id number] [facility] Administration Insulin Human Lispro 0 units 07/08/19 17:40 07/10/19 12:25 Humalog SC 2 unit .MILD SLIDING SCALE PRN Administration Mild Correctional Scale Isosorbide Mononitrate 10 mg 07/08/19 21:00 07/12/19 09:17 Ismo PO 10 mg BID [facility] Administration Latanoprost 1 drop 07/08/19 21:00 07/11/19 20:51 Xalatan 0.005% Ophth Soln EA EYE 1 drop HS [facility] Administration Melatonin 6 mg 07/08/19 21:00 07/11/19 20:51 Melatonin PO 6 mg HS [facility] Administration Pantoprazole Sodium 40 mg 07/09/19 09:00 07/12/19 09:17 Protonix PO 40 mg DAILY [facility] Administration Sertraline HCl 100 mg 07/09/19 09:00 07/12/19 09:18 Zoloft PO 100 mg DAILY [facility] Administration Sodium Chloride 10 ml 07/09/19 21:00 07/12/19 09:18 Flush - Normal Saline IVF 10 ml Q12HR [facility] Administration - Exam General Appearance: NAD, awake alert Eye: PERRL, anicteric sclera ENT: normocephalic atraumatic, no oropharyngeal lesions Heart: no murmur, no gallops, no rubs Heart - other findings: irregularly irregular Respiratory: CTAB, no wheezes, no rales, no ronchi Gastrointestinal: non-tender, non-distended Gastrointestinal - other findings: slightly firm to palpation Extremities: 1+ LE edema Extremities - other findings: legs tender to palpation Hosp A/P - Plan Chest Xray 07/09: cardiomegaly without acute disease ECHO 07/08: moderate , EF 40-45%, severe TR, mild MR, mild SC, RV systolic pressure of 61 Pelvic Ultrasound: thickening of endometrium. Nonspecific heterogeneity of uterus Renal Ultrasound: increase in size of right renal cyst This is an 88 year old female with past medical history of severe , hypertension,COPD, diastolic heart failure who presents with chest pain, found to have pulmonary edema, admitted for acute CHF #Acute hypoxic respiratory failure from systolic CHF #Severe aortic stenosis #Severe Tricuspid regurgitation #Moderate MR #Mixed respiratory acidosis/metabolic alkalosis #Acute Kidney Injury - pt with chest pain, pulmonary edema, elevated BNP and 5 pound weight gain. Trop elevated initially, repeat negative x 2 - repeat ECHO shows EF 40-45%, previously 60-65%. Aortic stenosis is moderate - She was getting lasix and metolazone at her rehab facility. Given significant metabolic alkalosis, was given 500 mg acetazolamide on admission. Repeat chest x ray 07/09 shows no pulmonary congestion. Got lasix 40 mg po bid - further lasix held since 07/11 due to GUI. Got IV fluid 250 cc/hr 07/11. Will continue to hydrate with IV fluids today - continue aspirin 81 mg daily, statin 10 mg daily Thickened endometrial stripe - needs outpatient follow up Right renal cyst - outpatient follow up Chronic respiratory failure from COPD - continue albuterol as needed and oxygen - on 2L oxygen at baseline Hypertensive urgency - improved - continue coreg bid, hydralazine tid - felodipine 2.5 mg daily Iron deficiency anemia - ferrous sulfate 325 mg bid Type II DM - insulin sliding scale - fingersticks achs Dispo: transfer to the floor Code status: full code
[2019-07-12] MEDS: Senokot S 8.6-50 MG TAB PO SCH (21:01)
[2019-07-12] MEDS: Melatonin 3 MG TAB PO SCH (21:01)
[2019-07-12] MEDS: Atorvastatin Calcium 10 MG TAB PO SCH (21:01)
[2019-07-12] MEDS: DorzolamidE/Timolol 2%/0.5% Ophth Soln 10 ml Bottle EA EYE SCH (21:02)
[2019-07-12] MEDS: Latanoprost 0.005% Ophth Soln 2.5 ml Bottle EA EYE SCH (21:02)
[2019-07-13 04:41] LABS: Hemoglobin 9.5 g/dL (12.0-16.0); Mean Corpuscular Hemoglobin 31.5 pg (27.0-31.0); Platelet Count 160 thou/uL (130-400); RBC Distribution Width 13.8 % (11.5-14.5); Red Blood Cell (RBC) Count 3.01 mill/uL (4.20-5.40); White Blood Cell (WBC) Count 5.5 thou/uL (4.8-10.8)
[2019-07-13 05:01] LABS: ALT (SGPT) 10 U/L (8-55); AST (SGOT) 20 U/L (5-34); Albumin 3.3 g/dL (3.4-4.8); Alkaline Phosphatase 184 U/L (40-110); Anion Gap 12 mmol/L (10-20); BUN (Urea Nitrogen) 41 mg/dL (9.8-20.1); Bilirubin, Total 0.6 mg/dL (0.2-1.2); Calc. Creatinine Clearance 38 mL/min (70-130); Carbon Dioxide 35 mmol/L (23-31); Chloride 93 mmol/L (98-107); Estimated GFR-MDRD 38; Globulin 3.6 g/dL (2.4-3.5); Glucose 129 mg/dL (83-110); Potassium 3.4 mmol/L (3.5-5.1); Protein, Total 6.9 g/dL (6.0-8.3); Sodium 137 mmol/L (136-145)
--- NOTE | 2019-07-13 08:39 | ULT ---
BILATERAL LOWER EXTREMITY VENOUS ULTRASOUND: COMPARISON: None. HISTORY: Bilateral lower extremity edema and tenderness. TECHNIQUE: Multiplanar quintanilla scale and color Doppler images were obtained in a bilateral lower extremity venous u ltrasound. Spectral analysis of the Doppler waveforms was performed. FINDINGS: The bilateral common femoral veins, profunda femoral veins, superficial femoral veins, and popliteal veins are normal in appearance without visible thrombus. These vessels demonstrate normal compressio n, flow, and augmentation. The posterior tibial veins and greater saphenous vein are also patent. IMPRESSION: No evidence of deep vein thrombosis. POS: C
[2019-07-13] MEDS ORDERED: Potassium Chloride 20 MEQ TAB PO SCH (09:30)
[2019-07-13] MEDS: hydrALAZINE 25 MG TAB PO SCH ×3 (09:36→22:08)
[2019-07-13] MEDS: Aspirin 81 mg Enteric Coated Tablet PO SCH (09:36)
[2019-07-13] MEDS: Senokot S 8.6-50 MG TAB PO SCH ×2 (09:37→22:14)
[2019-07-13] MEDS: Isosorbide Mononitrate 20 MG TAB PO SCH ×2 (09:37→22:12)
[2019-07-13] MEDS: Amlodipine 5 MG TAB PO SCH (09:37)
[2019-07-13] MEDS: Famotidine/PF 20 mg/2ml Vial SLOW IVP SCH (09:38)
[2019-07-13] MEDS: Enoxaparin Sodium 30 MG/0.3 ML SYRINGE SC SCH (09:38)
[2019-07-13] MEDS: Carvedilol 6.25 MG TAB PO SCH ×2 (09:38→22:12)
[2019-07-13] MEDS: HumaLOG 300 UNITS/3 ML VIAL SC PRN (12:28)
--- NOTE | 2019-07-13 14:43 | PDOC.HOSPP ---
- Subjective Encounter Date: 07/13/19 Encounter Time: 07:00 Subjective: Pt seen for followup re: acute hypoxic respiratory failure. Sleepy but arousable , denies chest pain, shortness of breath, fevers or chills. - Objective Vital Signs & Weight: Vital Signs (12 hours) Temp Pulse Resp BP Pulse Ox 07/13/19 12:00 97.9 F 80 14 129/73 95 07/13/19 07:13 98.5 F 82 30 H 120/66 97 07/13/19 03:52 98.4 F 110 H 22 H 114/72 95 Weight Weight 215 lb Most Recent Monitor Data Heart Rate from ECG 96 NIBP 130/61 NIBP BP-Mean 84 Respiration from ECG 35 SpO2 100 I&O: 07/12/19 07/13/19 07/14/19 06:59 06:59 06:59 Intake Total 1130 2255 Output Total 450 1150 Balance 680 1105 Result Diagrams: 07/13/19 04:07 07/13/19 04:07 Additional Labs: Accuchecks 07/13/19 07/13/19 07/12/19 10:56 06:00 20:23 POC Glucose 204 H 135 H 214 H 07/12/19 16:38 POC Glucose 139 H Labs and MARs reviewed by me EKG Reviewed by me: Yes (Tele: NSR) Hospitalist ROS - Review of Systems Cardiovascular: denies: chest pain, palpitations, orthopnea, paroxysmal noc. dyspnea, edema, light headedness Gastrointestinal: denies: nausea, vomiting, abdominal pain, diarrhea, constipation, melena, hematochezia - Medication Medications: Active Medications Generic Name Dose Route Start Last Admin Trade Name Freq PRN Reason Stop Dose Admin Acetaminophen 650 mg 07/11/19 14:28 07/11/19 15:16 Tylenol PO 650 mg Q6H PRN Administration Pain Amlodipine Besylate 2.5 mg 07/09/19 09:00 07/13/19 09:37 Norvasc PO 2.5 mg DAILY LILIANA Administration Aspirin 81 mg 07/09/19 09:00 07/13/19 09:36 Ecotrin PO 81 mg DAILY LILIANA Administration Atorvastatin Calcium 10 mg 07/08/19 21:00 07/12/19 21:01 Lipitor PO 10 mg HS LILIANA Administration Carvedilol 6.25 mg 07/08/19 21:00 07/13/19 09:38 Coreg PO 6.25 mg BID LILIANA Administration Cholecalciferol 5,000 units 07/09/19 09:00 07/13/19 09:36 Vitamin D3 PO 5,000 units DAILY LILIANA Administration Dorzolamide/Timolol 1 drop 07/08/19 21:00 07/12/19 21:02 Cosopt 2-0.5% Ophth Soln EA EYE Not Given HS LILIANA Enoxaparin Sodium 30 mg 07/12/19 09:00 07/13/19 09:38 Lovenox SC 30 mg 0900 LILIANA Administration Famotidine 20 mg 07/10/19 09:00 07/13/19 09:38 Pepcid SLOW IVP 20 mg DAILY LILIANA Administration Hydralazine HCl 50 mg 07/08/19 21:00 07/13/19 09:36 Apresoline PO 50 mg TID LILIANA Administration Insulin Human Lispro 0 units 07/08/19 17:40 07/13/19 12:28 Humalog SC 3 unit .MILD SLIDING SCALE PRN Administration Mild Correctional Scale Isosorbide Mononitrate 10 mg 07/08/19 21:00 07/13/19 09:37 Ismo PO 10 mg BID LILIANA Administration Latanoprost 1 drop 07/08/19 21:00 07/12/19 21:02 Xalatan 0.005% Ophth Soln EA EYE 1 drop HS LILIANA Administration Melatonin 6 mg 07/08/19 21:00 07/12/19 21:01 Melatonin PO 6 mg HS LILIANA Administration Pantoprazole Sodium 40 mg 07/09/19 09:00 07/13/19 09:37 Protonix PO 40 mg DAILY LILIANA Administration Senna/Docusate Sodium 1 tab 07/12/19 21:00 07/13/19 09:37 Senokot S PO 1 tab BID LILIANA Administration Sertraline HCl 100 mg 07/09/19 09:00 07/13/19 09:37 Zoloft PO 100 mg DAILY LILIANA Administration Sodium Chloride 10 ml 07/09/19 21:00 07/13/19 09:39 Flush - Normal Saline IVF 10 ml Q12HR LILIANA Administration - Exam General - other findings: Morbid obesity Eye: anicteric sclera ENT: moist mucosa Neck: supple Heart: RRR, no rubs Respiratory: CTAB Gastrointestinal: soft, non-tender Extremities: 1+ LE edema Psychiatric: normal affect, normal behavior, oriented to person, oriented to place Hosp A/P - Plan Assessment: #Acute hypoxic respiratory failure from systolic CHF #Moderate aortic stenosis #Severe Tricuspid regurgitation #Moderate MR #Mixed respiratory acidosis/metabolic alkalosis #Acute Kidney Injury #Morbid obesity #Thickened endometrial stripe #Right renal cyst #Chronic respiratory failure from COPD #Type II DM Plan: -Lasix on hold - continue aspirin 81 mg daily, statin 10 mg daily - continue albuterol as needed and oxygen - on 2L oxygen at baseline - continue coreg bid, hydralazine tid - felodipine 2.5 mg daily - ferrous sulfate 325 mg bid - insulin sliding scale - fingersticks achs
[2019-07-13] MEDS: DorzolamidE/Timolol 2%/0.5% Ophth Soln 10 ml Bottle EA EYE SCH (22:13)
[2019-07-13] MEDS: Melatonin 3 MG TAB PO SCH (22:13)
[2019-07-13] MEDS: Atorvastatin Calcium 10 MG TAB PO SCH (22:13)
[2019-07-13] MEDS: Latanoprost 0.005% Ophth Soln 2.5 ml Bottle EA EYE SCH (22:14)
[2019-07-13] MEDS: Acetaminophen 325 MG TAB PO PRN (22:29)
[2019-07-14] MEDS ORDERED: Furosemide 40 MG TAB PO SCH (09:00)
[2019-07-14] MEDS ORDERED: Furosemide 20 MG TAB PO SCH (09:00)
[2019-07-14 09:01] LABS: #Basophils 0.1 thou/uL (0.0-0.2); #Eosinphils 0.2 thou/uL (0.0-0.7); #Monocytes 0.6 thou/uL (0.11-0.59); #Neutrophils 2.8 thou/uL (1.40-6.50); %Basophils 1.2 % (0.0-1.0); %Lymphocytes 22.3 % (21.0-51.0); %Monocytes 13.3 % (0.0-10.0); %Neutrophils 59.2 % (42.0-75.0); Hemoglobin 9.9 g/dL (12.0-16.0); Mean Corpuscular HGB CONC 30.4 g/dL (32.0-36.0); Mean Corpuscular Hemoglobin 31.5 pg (27.0-31.0); Mean Platelet Volume 7.9 fL (7.4-10.4); Platelet Count 148 thou/uL (130-400); RBC Distribution Width 13.8 % (11.5-14.5); Red Blood Cell (RBC) Count 3.14 mill/uL (4.20-5.40); White Blood Cell (WBC) Count 4.6 thou/uL (4.8-10.8)
[2019-07-14 09:25] LABS: Anion Gap 13 mmol/L (10-20); BUN (Urea Nitrogen) 37 mg/dL (9.8-20.1); Calc. Creatinine Clearance 43 mL/min (70-130); Calcium 9.5 mg/dL (7.8-10.44); Carbon Dioxide 35 mmol/L (23-31); Chloride 94 mmol/L (98-107); Estimated GFR-MDRD 43; Glucose 112 mg/dL (83-110); Potassium 3.7 mmol/L (3.5-5.1); Sodium 138 mmol/L (136-145)
[2019-07-14] MEDS: Carvedilol 6.25 MG TAB PO SCH (09:25)
[2019-07-14] MEDS: Isosorbide Mononitrate 20 MG TAB PO SCH (09:26)
[2019-07-14] MEDS: Aspirin 81 mg Enteric Coated Tablet PO SCH (09:27)
[2019-07-14] MEDS: Amlodipine 5 MG TAB PO SCH (09:27)
[2019-07-14] MEDS: Famotidine/PF 20 mg/2ml Vial SLOW IVP SCH (09:28)
[2019-07-14] MEDS: Senokot S 8.6-50 MG TAB PO SCH (09:28)
[2019-07-14] MEDS: hydrALAZINE 25 MG TAB PO SCH ×2 (09:28→15:41)
[2019-07-14] MEDS: Enoxaparin Sodium 30 MG/0.3 ML SYRINGE SC SCH (09:28)
--- NOTE | 2019-07-14 12:03 | PRG ---
DATE OF SERVICE: 07/14/2019 SUBJECTIVE: Patient was seen and examined at bedside and overnight events noted. Patient denies any shortness of breath or chest pain or palpitation. No history of nausea or vomiting or diarrhea or fever or chills or cramps. OBJECTIVE: GENERAL: This is a well-built female in no apparent distress. VITAL SIGNS: Temperature 97.7. Heart rate 85. Respiratory rate 20. Blood pressure 131/74. HEENT: Atraumatic, normocephalic. Oral mucosa is moist NECK: Supple. CARDIOVASCULAR: S1, S2 heard. Rate and rhythm regular. RESPIRATORY: Clear to auscultation. GASTROINTESTINAL: Abdomen is soft. MUSCULOSKELETAL: No tenderness. No edema. DERMATOLOGIC: No skin rash. NEUROLOGIC: Alert and awake and oriented X3. No focal neurologic deficits. Moving all the extremities. PSYCHIATRIC: Mood and affect normal. LABORATORY DATA: Potassium is 3.7, BUN is 37, and creatinine is 1.4. ASSESSMENT AND PLAN: 1. Acute kidney injury on chronic kidney stage 3 secondary to cardiorenal syndrome. We will reduce Lasix to 40 p.o. daily and monitor. Limit fluid and salt intake. 2. Edema, controlled. 3. Cardiorenal syndrome. 4. Metabolic alkalosis. 5. Moderate aortic stenosis. 6. Diastolic dysfunction. 7. Pulmonary hypertension. 8. Anemia of chronic disease. 9. Continue on reduced dose of Lasix and monitor fluid status. Job ID: [id number]
[2019-07-14] MEDS: HumaLOG 300 UNITS/3 ML VIAL SC PRN (12:29)
--- NOTE | 2019-07-14 13:51 | RAD ---
EXAM: Single view of the chest HISTORY: CHF COMPARISON: 07/09/2019 FINDINGS: Single view of the chest shows an enlarged but stable cardiomediastinal silhouette. Patien t is status post aortic valve repair. There is no evidence of consolidation, mass, or pleural effusion. The bones are unremarkable. IMPRESSION: No evidence of acute cardiopulmonary disease
[2019-07-14] MEDS ORDERED: Cefdinir 300 MG CAP PO SCH (15:00)
[2019-07-14 15:48] VITALS: BP 111/55; TEMP 98.1
[2019-07-14] MEDS ORDERED: Warfarin Sodium 5 MG TAB PO SCH (17:00)
--- NOTE | 2019-07-14 17:23 | CT ---
CT HEAD WITHOUT CONTRAST: HISTORY: New onset mumbling. Patient unable to answer questions. COMPARISON: 04/09/2014 FINDINGS: There is decreased attenuation seen throughout the periventricular white matter, which is nonspecific but is likely related to chronic small vessel ischemic changes, which have progressed since the stud y in 2013. No acute cortical infarction, hemorrhage, mass effect or midline shift is identified. Cerebral and cerebellar volume loss is present. The ventricular system is normal in size, shape and p osition for the degree of sulcal atrophy. There is complete opacification of the mastoid air cells on the right. There is also suggestion of a few mastoid effusions on the left. Dense vascular calcifications are seen in the carotid siphons. There is a defect in the right medial orbital wall, which is a stable finding and may be developmenta l in origin versus a remote injury. Small air-fluid level seen in the left sphenoid sinus with minimal mucosal thickening of a few ethmoi d air cells bilaterally as well as the right sphenoid sinus. IMPRESSION: 1. Complete opacification of the right mastoid air cells and what appears to be opacification of the middle ear. Findings could be related to otomastoiditis in the correct clinical scenario, but this wo uld be a clinical diagnosis. 2. Mastoid effusions on the left. 3. Chronic small vessel ischemic changes and cerebral volume loss. 4. No acute intracranial abnormalities demonstrated. 5. Sinus disease including small air-fluid level in the left sphenoid sinus, which is nonspecific but can be seen with acute sinusitis. POS: [facility]
--- NOTE | 2019-07-15 02:09 | DIS ---
DATE OF ADMISSION: 07/08/2019 DATE OF DISCHARGE: 07/14/2019 PRIMARY CARE PROVIDER: Hardeep Al MD DISCHARGE DIAGNOSES: 1. Acute hypoxic respiratory failure. 2. Congestive systolic heart failure exacerbation, [place] Heart Association class III. 3. Moderate aortic stenosis. 4. Mixed respiratory acidosis/metabolic alkalosis. 5. Hypertensive urgency. 6. Acute on chronic stage 3 renal failure secondary to cardiorenal syndrome. CONDITION OF PATIENT ON THE DAY OF DISCHARGE: Stable. I assessed Ms. Barraza on the day of discharge. She denies any chest pain or shortness of breath. Vital signs are stable. S1 and S2 are heard, regular. Lungs are clear to auscultation bilaterally. CONSULTATIONS DURING THIS HOSPITALIZATION: 1. Cardiology, Dr. Flores. 2. Nephrology, Dr. Gonzales. DISCHARGE MEDICATIONS: 1. Lasix dose has been changed to 40 mg daily. 2. Metolazone dose changed to 2.5 mg on Monday, Monday, and Monday. 3. Hydralazine has been started at 50 mg 3 times a day. 4. She is also being started on cefdinir 300 mg 2 times a day for 10 days for Proteus urinary tract infection during this hospitalization. Otherwise, no change was made to her pre-admission home medications which include: 1. Ipratropium/albuterol inhalation every 8 hours. 2. Aspirin 81 mg daily. 3. Coreg 6.25 mg 2 times a day. 4. Vitamin D3, 125 mcg daily. 5. Dorzolamide/timolol one drop each eye at bedtime. 6. Felodipine 2.5 mg daily. 7. Glipizide 2.5 mg daily. 8. Isosorbide mononitrate 10 mg 2 times a day. 9. Melatonin 6 mg at bedtime. 10. Protonix 40 mg daily. 11. Potassium chloride 10 mEq daily. 12. Sertraline 100 mg daily. 13. Simvastatin 20 mg at bedtime. 14. Latanoprost eyedrops one drop to each eye at bedtime. 15. MiraLAX 17 g daily. 16. Senokot-S one tablet 2 times a day. 17. Warfarin 5 mg daily. 18. Tylenol regular strength p.r.n. 19. Milk of Magnesia p.r.n. HOSPITAL COURSE: Ms. Barraza is a pleasant 88-year-old lady who was admitted to [facility] on July 08, 2019, for acute hypoxic respiratory failure secondary to congestive heart failure exacerbation. She was seen by Cardiology Service. She was treated with diuretics. She also received acetazolamide for metabolic alkalosis. 2D echocardiogram showed left ventricular ejection fraction of 40% to 45%, atrial fibrillation, septal bones consistent with bundle-branch block morphology, mild concentric LVH, severely dilated left atrium, dilated right ventricle with reduced right ventricle systolic function, markedly enlarged right atrium size, mitral valve ring annuloplasty, mild mitral regurgitation, severe tricuspid regurgitation, elevated right ventricular systolic pressure estimated at 61 mmHg, mild pulmonic regurgitation, calcified aortic valve with reduced cusp opening and moderate aortic valve stenosis with aortic valve area of 1.1 squared centimeters. She also had mild aortic valve regurgitation. She improved with diuretics in terms of heart failure; however, she developed renal failure. She was seen by Nephrology Service. Diuretics were held. Creatinine improved to 1.40 on the day of discharge. Lasix is being reintroduced at a lower dose than before she was admitted to the hospital. Urine cultures also grew Proteus mirabilis. It is unclear if this represents a true urinary tract infection because the patient cannot verbalize her symptoms. She is being started on empiric cefdinir at the time of discharge. Proteus mirabilis is resistant to nitrofurantoin, but is otherwise pansensitive. On the day of discharge, she has sodium of 138, potassium 3.7, blood urea nitrogen 37, and creatinine 1.40. White count 4600, hemoglobin 9.9, and platelet count 148,000. DISCHARGE DESTINATION: [facility], where the patient is a resident. TIME SPENT: Total amount of time spent coordinating this discharge: 32 minutes. ACTIVITY: As tolerated. DIET: Diabetic, heart healthy, and low-sodium diet. Many thanks for allowing me to participate in your patient's care. Please feel free to contact me with any questions or concerns. Job ID: [id number]
[2019-07-15] MEDS ORDERED: Furosemide 40 MG TAB PO SCH (09:00)
--- NOTE | 2019-07-15 11:26 | PRG ---
DATE OF SERVICE: 07/13/2019 SUBJECTIVE: Patient was seen and examined at bedside and overnight events noted. Patient denies any shortness of breath or chest pain or palpitation. No history of nausea or vomiting or diarrhea or fever or chills or cramps. OBJECTIVE: GENERAL: This is a well-built female, in no acute distress. VITAL SIGNS: Temperature 98.5. Heart rate 82. Respiratory rate 30. Blood pressure 120/66. HEENT: Atraumatic, normocephalic. Oral mucosa is moist NECK: Supple. CARDIOVASCULAR: S1, S2 heard. Rate and rhythm regular. RESPIRATORY: Clear to auscultation. GASTROINTESTINAL: Abdomen is soft. MUSCULOSKELETAL: No tenderness. No edema. DERMATOLOGIC: No skin rash. NEUROLOGIC: Alert and awake and oriented X3. No focal neurologic deficits. Moving all the extremities. PSYCHIATRIC: Mood and affect normal. LABORATORY DATA: Potassium 3.4, BUN is 41, and creatinine is 1.5. ASSESSMENT AND PLAN: 1. Acute kidney injury on chronic kidney disease stage 3, seems to be better. We will stop IV fluids. Okay with Lasix 40 p.o. daily if needed for the weight gain or edema or shortness of breath. 2. Edema, controlled. 3. Cardiorenal syndrome. 4. Metabolic alkalosis. 5. Moderate aortic stenosis. 6. Diastolic dysfunction. 7. History of pulmonary hypertension. 8. Anemia of chronic disease. 9. Hypokalemia, replaced. We will stop IV fluids. We will monitor renal function. Job ID: [id number]
== END 2019-07-14 19:22 | DRG 291 ==
LOC: ERS 09:53 → IMCU/EMU 14:40 → 2NO 07-09 17:39
PROVIDERS: ADMIT Internal Medicine; ATTEND Internal Medicine
PROC: 5A09357 Assistance with Respiratory Ventilation, Less than 24 Consecutive Hours, Continuous Positive Airway Pressure (ICD-10-PCS; principal; 2019-07-08)
DX: I13.0 Hypertensive heart and chronic kidney disease with heart failure and stage 1 through stage 4 chronic kidney disease, or unspecified chronic kidney disease (principal); J96.01 Acute respiratory failure with hypoxia; I50.43 Acute on chronic combined systolic (congestive) and diastolic (congestive) heart failure; E87.4 Mixed disorder of acid-base balance; N17.9 Acute kidney failure, unspecified; I48.20 Chronic atrial fibrillation, unspecified; Z68.41 Body mass index [BMI] 40.0-44.9, adult; I48.92 Unspecified atrial flutter; I42.0 Dilated cardiomyopathy; I16.0 Hypertensive urgency; N18.3 Chronic kidney disease, stage 3 (moderate); E11.22 Type 2 diabetes mellitus with diabetic chronic kidney disease; I08.3 Combined rheumatic disorders of mitral, aortic and tricuspid valves; D50.9 Iron deficiency anemia, unspecified; I25.10 Atherosclerotic heart disease of native coronary artery without angina pectoris; E66.9 Obesity, unspecified; I27.20 Pulmonary hypertension, unspecified; E78.00 Pure hypercholesterolemia, unspecified; J44.9 Chronic obstructive pulmonary disease, unspecified; D63.1 Anemia in chronic kidney disease; R93.89 Abnormal findings on diagnostic imaging of other specified body structures; N28.1 Cyst of kidney, acquired; E87.6 Hypokalemia; Z99.81 Dependence on supplemental oxygen; Z90.49 Acquired absence of other specified parts of digestive tract; Z79.899 Other long term (current) drug therapy; Z79.82 Long term (current) use of aspirin; Z86.711 Personal history of pulmonary embolism; Z79.01 Long term (current) use of anticoagulants; Z88.8 Allergy status to other drugs, medicaments and biological substances; Z74.01 Bed confinement status
CPT/HCPCS: 36415; 36416; 70450; 71045; 76770; 76856; 80048; 80053; 81001; 82553; 82607; 82746; 82805; 83880; 84484; 85025; 85027; 85610; 87077; 87086; 87186; 93005; 93306; 93798; 93970; 93976; 94640; 94644; 94660; J1120; J1650; J1940; J7611; J7620; S0028

== ENCOUNTER 2019-08-26 18:37 | Inpatient (IN) | payer MEDICARE ==
--- NOTE | 2019-08-26 19:22 | RAD ---
Frontal radiograph chest: 08/26/2019 COMPARISON: 07/14/2019 HISTORY: Pneumonia FINDINGS: Stable enlargement of the cardiac silhouette. Stable pulmonary vascular congestion and stab le midline sternotomy wires are noted. There is hazy increased density in bilateral perihilar regions, left greater than right. No pneumotho rax. No lobar consolidation or alveolar edema. IMPRESSION: Stable appearance of the chest as detailed above. Hazy increased density in the perihilar regions may reflect edema or infectious pneumonitis/aspiration. Recommend follow-up PA and lateral imaging of the chest following treatment to document resolution.
[2019-08-26 19:33] LABS: #Eosinphils 0.2 thou/uL (0.0-0.7); #Lymphocytes 1.1 thou/uL (1.20-3.40); #Monocytes 0.6 thou/uL (0.11-0.59); #Neutrophils 3.1 thou/uL (1.40-6.50); %Basophils 0.5 % (0.0-1.0); %Eosinophils 3.4 % (0.0-10.0); %Lymphocytes 21.4 % (21.0-51.0); %Monocytes 12.4 % (0.0-10.0); %Neutrophils 62.3 % (42.0-75.0); Mean Corpuscular HGB CONC 30.6 g/dL (32.0-36.0); Mean Corpuscular Hemoglobin 31.1 pg (27.0-31.0); Mean Platelet Volume 8.2 fL (7.4-10.4); Platelet Count 148 thou/uL (130-400); RBC Distribution Width 14.4 % (11.5-14.5); Red Blood Cell (RBC) Count 3.23 mill/uL (4.20-5.40); White Blood Cell (WBC) Count 4.9 thou/uL (4.8-10.8)
[2019-08-26 19:58] LABS: ALT (SGPT) 12 U/L (8-55); AST (SGOT) 26 U/L (5-34); Albumin 3.3 g/dL (3.4-4.8); Alkaline Phosphatase 189 U/L (40-110); Anion Gap 12 mmol/L (10-20); BUN (Urea Nitrogen) 38 mg/dL (9.8-20.1); Bilirubin, Total 0.5 mg/dL (0.2-1.2); Calc. Creatinine Clearance 0 mL/min (70-130); Calcium 9.7 mg/dL (7.8-10.44); Carbon Dioxide 37 mmol/L (23-31); Chloride 97 mmol/L (98-107); Estimated GFR-MDRD 41; Globulin 3.7 g/dL (2.4-3.5); Glucose 97 mg/dL (83-110); Potassium 3.5 mmol/L (3.5-5.1); Sodium 142 mmol/L (136-145)
[2019-08-26 20:20] LABS: CKMB 0.7 ng/mL (0-6.6)
[2019-08-26] MEDS ORDERED: cefTRIAXone\\ROCEPHIN 2 GM VIAL ONE (22:39)
[2019-08-26 23:27] LABS: Troponin I 0.019 ng/mL (< 0.028)
[2019-08-26] MEDS ORDERED: Vancomycin 1 GM/200 ML BAG ONE (23:33)
[2019-08-27 02:01] LABS: Troponin I 0.047 ng/mL (< 0.028)
[2019-08-27 07:03] LABS: #Eosinphils 0.2 thou/uL (0.0-0.7); #Lymphocytes 1.1 thou/uL (1.20-3.40); #Monocytes 0.5 thou/uL (0.11-0.59); #Neutrophils 2.7 thou/uL (1.40-6.50); %Basophils 0.5 % (0.0-1.0); %Eosinophils 4.1 % (0.0-10.0); %Lymphocytes 24.4 % (21.0-51.0); %Monocytes 11.3 % (0.0-10.0); %Neutrophils 59.7 % (42.0-75.0); Hemoglobin 9.7 g/dL (12.0-16.0); Mean Corpuscular HGB CONC 30.5 g/dL (32.0-36.0); Mean Corpuscular Hemoglobin 31.2 pg (27.0-31.0); Mean Platelet Volume 8.8 fL (7.4-10.4); Platelet Count 154 thou/uL (130-400); RBC Distribution Width 14.4 % (11.5-14.5); Red Blood Cell (RBC) Count 3.11 mill/uL (4.20-5.40); White Blood Cell (WBC) Count 4.5 thou/uL (4.8-10.8)
[2019-08-27 07:12] LABS: INR-International Normal Ratio 3.3; Prothrombin Time 33.3 SEC (12.0-14.7)
[2019-08-27 07:24] LABS: Anion Gap 13 mmol/L (10-20); BUN (Urea Nitrogen) 34 mg/dL (9.8-20.1); Calc. Creatinine Clearance 0 mL/min (70-130); Calcium 9.7 mg/dL (7.8-10.44); Carbon Dioxide 33 mmol/L (23-31); Chloride 98 mmol/L (98-107); Estimated GFR-MDRD 50; Glucose 73 mg/dL (83-110); Magnesium 1.8 mg/dL (1.6-2.6); Potassium 3.3 mmol/L (3.5-5.1); Sodium 141 mmol/L (136-145)
[2019-08-27] MEDS ORDERED: Acetaminophen 325 MG TAB PO PRN (08:32)
[2019-08-27] MEDS ORDERED: Senokot S 8.6-50 MG TAB PO PRN (08:32)
[2019-08-27] MEDS ORDERED: Furosemide 40 MG TAB ONE (10:15)
[2019-08-27] MEDS ORDERED: hydrALAZINE 25 MG TAB ONE ×3 (10:15→16:06)
[2019-08-27] MEDS ORDERED: Aspirin Chewable 81 MG TAB ONE (10:15)
[2019-08-27] MEDS: Furosemide 40 MG TAB PO SCH (10:21)
[2019-08-27] MEDS: hydrALAZINE 25 MG TAB PO SCH ×3 (10:22→22:22)
[2019-08-27] MEDS: Isosorbide Mononitrate 20 MG TAB PO SCH ×2 (10:24→22:21)
[2019-08-27] MEDS: Carvedilol 6.25 MG TAB PO SCH ×2 (10:26→22:23)
[2019-08-27] MEDS: Potassium Chloride 10 MEQ TAB PO SCH (10:28)
[2019-08-27] MEDS: Senokot S 8.6-50 MG TAB PO SCH ×2 (10:29→22:23)
[2019-08-27] MEDS: Aspirin 81 mg Enteric Coated Tablet PO SCH (10:30)
[2019-08-27] MEDS: Polyethylene Glycol 3350 17 GM Packet PO SCH (10:33)
[2019-08-27] MEDS ORDERED: Furosemide 40 MG/4 ML VIAL ONE (15:23)
[2019-08-27] MEDS: Furosemide 40 MG/4 ML VIAL SLOW IVP SCH (16:07)
--- NOTE | 2019-08-27 16:57 | PDOC.EVN ---
Event Note - Event Note Event Note: H & p dictated Pneumonia hx of CHF an dafib on coumadin, inR 3.3 CVA with mostly bed bound from [facility] Lobo
[2019-08-27] MEDS ORDERED: Warfarin Sodium 5 MG TAB PO SCH ×3 (17:00)
--- NOTE | 2019-08-27 18:34 | HP ---
CHIEF COMPLAINT: Transferred from [facility] for shortness of breath, questionable pneumonia, and elevated troponin. HISTORY OF PRESENT ILLNESS: An 88-year-old female with multiple medical problems, residing at [facility], was brought in due to pneumonia. Initial labs suggestive of elevated troponin at 0.033. The patient has a history of coronary artery disease and CHF as well as atrial fibrillation. Her white count is in the normal range. Her INR is 3.3. A chest x-ray showed perihilar densities concerning for infection. The patient is admitted for further management. The patient is not able to verbalize much. She is alert and oriented x1 only. REVIEW OF SYSTEMS: Not obtainable. ALLERGIES: SHE IS ALLERGIC TO: 1. BOSENTAN. 2. AMBRISENTAN. 3. DIPHENHYDRAMINE. 4. METFORMIN. PAST MEDICAL HISTORY: 1. Coronary artery disease, status post CABG. 2. Atrial fibrillation. 3. Type 2 diabetes mellitus. 4. Hyperlipidemia. 5. History of CVA. 6. Severe tricuspid regurgitation. 7. Peripheral vascular disease. SOCIAL HISTORY: The patient does not smoke or drink alcohol. She lives at [facility]. FAMILY HISTORY: Not obtainable. MEDICATIONS: 1. Lasix 40 mg daily. 2. Metolazone 2.5 mg on Monday, Monday, and Monday. 3. Hydralazine 50 mg 3 times a day. 4. DuoNeb every 8 hours. 5. Aspirin 81 mg daily. 6. Coreg 6.25 mg twice a day. 7. Vitamin D3. 8. Felodipine. 9. Glipizide. 10. Isosorbide mononitrate 10 mg twice a day. 11. Protonix 40 mg daily. 12. Several p.r.n. medications. 13. Warfarin 5 mg daily. PHYSICAL EXAMINATION: VITAL SIGNS: Pulse is 84, blood pressure 135/71. She is afebrile. GENERAL: The patient is alert and oriented x1. HEENT: Pupils are equal, round, and reactive to light. Anicteric. Mucous membranes are moist. CARDIOVASCULAR: Irregular rhythm. Regular rate. Murmur appreciated in the right intercostal space, 3/6. ABDOMEN: Soft, nontender, and nondistended. Good bowel sounds. EXTREMITIES: Questionable pitting edema. LABORATORY DATA: CBC in the normal range. EKG showed atrial fibrillation with rate of 76 beats per minute. Chest x-ray, perihilar infiltrate. Chemistry panel with potassium of 3.3. Troponin 0.033. IMPRESSION AND PLAN: This is an 88-year-old female with multiple medical problems, presenting with: 1. Aspiration pneumonia. 2. She appears mildly volume overloaded by exam. She does have a history of congestive heart failure, on Lasix. We will continue with her metolazone, but switch her Lasix to twice a day until she is euvolemic. Follow with BMP panel. 3. History of atrial fibrillation, on Coumadin. Her INR is 3.3 today. We will hold her Coumadin today and check daily INR. If it is less than 3, then we will continue with her daily regimen of 5 mg daily. 4. The patient has peripheral vascular disease. Continue with aspirin and statin. 5. Type 2 diabetes mellitus. The patient is on glipizide. We will continue the same along with diabetic and healthy-heart diet. 6. Gastrointestinal prophylaxis. She is on Protonix. The rest of the management based on clinical course. The patient is full code. Job ID: [id number] [facility]
[2019-08-27] MEDS: Latanoprost 0.005% Ophth Soln 2.5 ml Bottle EA EYE SCH (22:21)
[2019-08-27] MEDS: Melatonin 3 MG TAB PO SCH (22:22)
[2019-08-27] MEDS: Atorvastatin Calcium 10 MG TAB PO SCH (22:23)
[2019-08-28 05:35] LABS: #Eosinphils 0.2 thou/uL (0.0-0.7); #Lymphocytes 1.2 thou/uL (1.20-3.40); #Monocytes 0.6 thou/uL (0.11-0.59); #Neutrophils 3.3 thou/uL (1.40-6.50); %Basophils 0.2 % (0.0-1.0); %Eosinophils 3.9 % (0.0-10.0); %Lymphocytes 23.1 % (21.0-51.0); %Monocytes 10.7 % (0.0-10.0); %Neutrophils 62.1 % (42.0-75.0); Hemoglobin 9.1 g/dL (12.0-16.0); Mean Corpuscular HGB CONC 30.6 g/dL (32.0-36.0); Mean Corpuscular Hemoglobin 30.9 pg (27.0-31.0); Mean Platelet Volume 8.6 fL (7.4-10.4); Platelet Count 150 thou/uL (130-400); RBC Distribution Width 14.4 % (11.5-14.5); Red Blood Cell (RBC) Count 2.95 mill/uL (4.20-5.40); White Blood Cell (WBC) Count 5.3 thou/uL (4.8-10.8)
[2019-08-28 05:37] LABS: Prothrombin Time 30.7 SEC (12.0-14.7)
[2019-08-28 05:54] LABS: Anion Gap 12 mmol/L (10-20); BUN (Urea Nitrogen) 32 mg/dL (9.8-20.1); Calc. Creatinine Clearance 45 mL/min (70-130); Calcium 9.5 mg/dL (7.8-10.44); Carbon Dioxide 37 mmol/L (23-31); Chloride 95 mmol/L (98-107); Estimated GFR-MDRD 50; Glucose 118 mg/dL (83-110); Potassium 3.4 mmol/L (3.5-5.1); Sodium 141 mmol/L (136-145)
[2019-08-28] MEDS: Furosemide 40 MG/4 ML VIAL SLOW IVP SCH ×2 (05:58→14:17)
[2019-08-28] MEDS ORDERED: Amlodipine 5 MG TAB PO SCH (09:00)
[2019-08-28] MEDS ORDERED: FLU VACC TS2019-20(65YR UP)/PF 180 MCG/0.5 ML SYRINGE IM ONE (09:00)
[2019-08-28] MEDS ORDERED: Prevnar 13-Val Conj/PF 0.5 ML SYRINGE IM ONE (09:00)
[2019-08-28] MEDS: Carvedilol 6.25 MG TAB PO SCH ×2 (09:19→20:44)
[2019-08-28] MEDS: Aspirin 81 mg Enteric Coated Tablet PO SCH (09:19)
[2019-08-28] MEDS: Furosemide 40 MG TAB PO SCH (09:20)
[2019-08-28] MEDS: Isosorbide Mononitrate 20 MG TAB PO SCH (09:20)
[2019-08-28] MEDS: hydrALAZINE 25 MG TAB PO SCH (09:20)
[2019-08-28] MEDS: Metolazone 2.5 MG TAB PO SCH (09:21)
[2019-08-28] MEDS: Potassium Chloride 10 MEQ TAB PO SCH (09:21)
[2019-08-28] MEDS: Polyethylene Glycol 3350 17 GM Packet PO SCH (09:21)
[2019-08-28] MEDS: Senokot S 8.6-50 MG TAB PO SCH ×2 (09:21→20:44)
[2019-08-28] MEDS ORDERED: Dextrose 5% in Water 1,000 ML IV PRN (12:20)
[2019-08-28] MEDS ORDERED: Dextrose 50% Abboject 50 ML SYRINGE IVP PRN (12:20)
[2019-08-28] MEDS ORDERED: Insulin Regular 300 UNITS/3 ML VIAL SC PRN (12:20)
[2019-08-28] MEDS: Insulin Regular 300 UNITS/3 ML VIAL SC PRN (12:32)
--- NOTE | 2019-08-28 12:32 | PDOC.HOSPP ---
- Subjective Encounter Date: 08/28/19 Encounter Time: 10:35 Subjective: sleeping soundly, inr 3.0 today - Objective Vital Signs & Weight: Vital Signs (12 hours) Temp Pulse Resp BP BP Pulse Ox 08/28/19 07:37 98.5 F 90 18 125/60 98 08/28/19 07:13 99 08/28/19 07:09 94 16 99 08/28/19 04:00 98.1 F 88 16 99/54 L 99/54 L 91 L Weight Admit Weight 196 lb Weight 195 lb 6.4 oz I&O: 08/27/19 08/28/19 08/29/19 06:59 06:59 06:59 Intake Total 504 Output Total 1300 Balance -796 Result Diagrams: 08/28/19 05:11 08/28/19 05:11 Additional Labs: Accuchecks 08/28/19 08/28/19 08/27/19 11:20 05:29 20:25 POC Glucose 170 H 127 H 118 H Hospitalist ROS - Medication Medications: Active Medications Generic Name Dose Route Start Last Admin Trade Name Freq PRN Reason Stop Dose Admin Acetaminophen 650 mg 08/27/19 08:32 08/27/19 22:24 Tylenol PO 650 mg Q4H PRN Administration Headache/Fever/Mild Pain (1-3) Albuterol/Ipratropium 3 ml 08/27/19 15:00 08/28/19 07:09 Duoneb NEB 3 ml [id number] LILIANA Administration Amlodipine Besylate 2.5 mg 08/28/19 09:00 08/28/19 09:17 Norvasc PO 2.5 mg DAILY LILIANA Administration Aspirin 81 mg 08/27/19 09:00 08/28/19 09:19 Ecotrin PO 81 mg DAILY LILIANA Administration Atorvastatin Calcium 10 mg 08/27/19 21:00 08/27/19 22:23 Lipitor PO 10 mg HS LILIANA Administration Carvedilol 6.25 mg 08/27/19 09:00 08/28/19 09:19 Coreg PO 6.25 mg BID LILIANA Administration Cholecalciferol 5,000 units 08/28/19 09:00 08/28/19 09:19 Vitamin D3 PO 5,000 units DAILY LILIANA Administration Dorzolamide/Timolol 1 drop 08/27/19 21:00 08/28/19 00:34 Cosopt 2-0.5% Ophth Soln EA EYE 1 drop HS LILIANA Administration Furosemide 40 mg 08/27/19 09:00 08/28/19 09:20 Lasix PO 40 mg 0900 LILIANA Administration Furosemide 40 mg 08/27/19 14:00 08/28/19 05:58 Lasix SLOW IVP 40 mg 0600,1400 LILIANA Administration Glipizide 2.5 mg 08/28/19 08:00 08/28/19 09:17 Glucotrol Xl PO 2.5 mg QAM-WM LILIANA Administration Hydralazine HCl 50 mg 08/27/19 09:00 08/28/19 09:20 Apresoline PO 50 mg TID LILIANA Administration Isosorbide Mononitrate 10 mg 08/27/19 09:00 08/28/19 09:20 Ismo PO 10 mg BID LILIANA Administration Latanoprost 1 drop 08/27/19 21:00 08/27/19 22:21 Xalatan 0.005% Ophth Soln EA EYE 1 drop HS LILIANA Administration Melatonin 6 mg 08/27/19 21:00 08/27/19 22:22 Melatonin PO 6 mg HS LILIANA Administration Metolazone 2.5 mg 08/28/19 09:00 08/28/19 09:21 Zaroxolyn PO 2.5 mg MWF LILIANA Administration Pantoprazole Sodium 40 mg 08/27/19 09:00 08/28/19 09:21 Protonix PO 40 mg DAILY LILIANA Administration Polyethylene Glycol 17 gm 08/27/19 09:00 08/28/19 09:21 Miralax PO 17 gm DAILY LILIANA Administration Potassium Chloride 10 meq 08/27/19 09:00 08/28/19 09:21 Klor-Con 10 PO 10 meq DAILY LILIANA Administration Senna/Docusate Sodium 1 tab 08/27/19 09:00 08/28/19 09:21 Senokot S PO 1 tab BID LILIANA Administration Sertraline HCl 100 mg 08/27/19 09:00 08/28/19 09:21 Zoloft PO 100 mg DAILY LILIANA Administration - Exam General - other findings: sleeping ENT: normocephalic atraumatic Neck: supple Heart: RRR, normal peripheral pulses Respiratory: CTAB, normal chest expansion Gastrointestinal: soft, normal bowel sounds Hosp A/P - Plan Aspiration pneumonia -CTX,zithromax Afib -rate controlled -c oreg -on coumadin - therapuetic -pharm to dose and daily inr CHF, acute on chronic sytolic CHF exacerbation echo 06/2019 -- EF 45%; severe TR, dec RV fn, LVH, KOBY. - bnp quite high -lasix 40 iv bid -hold isodrill, stop norvasc, coreg w. holds DM2 - on glipizide PVD- asa+statin. once more stable and better, PT c/s and post acute mgmt.
[2019-08-28] MEDS: cefTRIAXone\\ROCEPHIN 1 GM in Sodium Chloride 0.9% 100 ML IVPB SCH (14:10)
[2019-08-28] MEDS: hydrALAZINE 10 MG TAB PO SCH ×2 (14:17→20:44)
[2019-08-28] MEDS: Latanoprost 0.005% Ophth Soln 2.5 ml Bottle EA EYE SCH (20:43)
[2019-08-28] MEDS: Melatonin 3 MG TAB PO SCH (20:44)
[2019-08-28] MEDS: Atorvastatin Calcium 10 MG TAB PO SCH (20:44)
[2019-08-29 05:13] LABS: Hemoglobin 9.2 g/dL (12.0-16.0); Platelet Count 147 thou/uL (130-400)
[2019-08-29 05:15] LABS: INR-International Normal Ratio 2.2; Prothrombin Time 24.4 SEC (12.0-14.7)
[2019-08-29] MEDS: Furosemide 40 MG/4 ML VIAL SLOW IVP SCH ×2 (05:27→13:14)
[2019-08-29] MEDS: Aspirin 81 mg Enteric Coated Tablet PO SCH (09:29)
[2019-08-29] MEDS: Carvedilol 6.25 MG TAB PO SCH ×2 (09:30→20:23)
[2019-08-29] MEDS: Azithromycin 250 MG TAB PO SCH (09:30)
[2019-08-29] MEDS: Furosemide 40 MG TAB PO SCH (09:31)
[2019-08-29] MEDS: Senokot S 8.6-50 MG TAB PO SCH ×2 (09:32→20:24)
[2019-08-29] MEDS: hydrALAZINE 10 MG TAB PO SCH ×3 (09:32→20:23)
[2019-08-29] MEDS: Polyethylene Glycol 3350 17 GM Packet PO SCH (09:32)
[2019-08-29] MEDS: Potassium Chloride 10 MEQ TAB PO SCH (09:32)
[2019-08-29] MEDS: cefTRIAXone\\ROCEPHIN 1 GM in Sodium Chloride 0.9% 100 ML IVPB SCH (13:13)
[2019-08-29 14:02] VITALS: BMI 35.8
--- NOTE | 2019-08-29 16:01 | PDOC.HOSPP ---
- Subjective Encounter Date: 08/29/19 Encounter Time: 10:25 Subjective: seen - nrusing staff at bedside. no acute events o/n. no pressure ulcers. - Objective Vital Signs & Weight: Vital Signs (12 hours) Temp Pulse Resp BP BP Pulse Ox 08/29/19 15:13 89 16 92 L 08/29/19 11:19 98.4 F 76 18 107/59 L 96 08/29/19 07:40 94 L 08/29/19 07:39 90 16 94 L 08/29/19 07:22 98.5 F 83 20 117/59 L 97 Weight Admit Weight 196 lb 12.8 oz Weight 195 lb 12.8 oz I&O: 08/28/19 08/29/19 08/30/19 06:59 06:59 06:59 Intake Total 504 300 Output Total 1300 400 Balance -796 -100 Result Diagrams: 08/29/19 04:25 08/28/19 05:11 Additional Labs: Accuchecks 08/29/19 08/29/19 08/28/19 11:11 06:07 19:40 POC Glucose 141 H 106 142 H 08/28/19 16:59 POC Glucose 144 H Hospitalist ROS - Medication Medications: Active Medications Generic Name Dose Route Start Last Admin Trade Name Freq PRN Reason Stop Dose Admin Acetaminophen 650 mg 08/27/19 08:32 08/27/19 22:24 Tylenol PO 650 mg Q4H PRN Administration Headache/Fever/Mild Pain (1-3) Albuterol/Ipratropium 3 ml 08/27/19 15:00 08/29/19 15:13 Duoneb NEB 3 ml [id number] LILIANA Administration Aspirin 81 mg 08/27/19 09:00 08/29/19 09:29 Ecotrin PO 81 mg DAILY LILIANA Administration Atorvastatin Calcium 10 mg 08/27/19 21:00 08/28/19 20:44 Lipitor PO 10 mg HS LILIANA Administration Azithromycin 250 mg 08/29/19 09:00 08/29/19 09:30 Zithromax PO 09/01/19 09:01 250 mg DAILY LILIANA Administration Carvedilol 6.25 mg 08/27/19 09:00 08/29/19 09:30 Coreg PO 6.25 mg BID LILIANA Administration Cholecalciferol 5,000 units 08/28/19 09:00 08/29/19 09:30 Vitamin D3 PO 5,000 units DAILY LILIANA Administration Dorzolamide/Timolol 1 drop 08/27/19 21:00 08/28/19 20:43 Cosopt 2-0.5% Ophth Soln EA EYE 1 drop HS LILIANA Administration Furosemide 40 mg 08/27/19 09:00 08/29/19 09:31 Lasix PO 40 mg 0900 LILIANA Administration Furosemide 40 mg 08/27/19 14:00 08/29/19 13:14 Lasix SLOW IVP 40 mg 0600,1400 LILIANA Administration Glipizide 2.5 mg 08/28/19 08:00 08/29/19 09:29 Glucotrol Xl PO 2.5 mg QAM-WM LILIANA Administration Hydralazine HCl 20 mg 08/28/19 15:00 08/29/19 14:44 Apresoline PO 20 mg TID LILIANA Administration Ceftriaxone Sodium 1 gm/ 100 mls @ 200 mls/hr 08/28/19 13:00 08/29/19 13:13 Sodium Chloride IVPB 100 mls Q24HR LILIANA Administration Insulin Human Regular 0 units 08/28/19 12:20 08/28/19 12:32 Humulin R SC 2 unit .MODERATE SLIDING SC PRN Administration MODERATE SLIDING SCALE Protocol Isosorbide Mononitrate 10 mg 08/27/19 09:00 08/28/19 09:20 Ismo PO 10 mg BID LILIANA Administration Latanoprost 1 drop 08/27/19 21:00 08/28/19 20:43 Xalatan 0.005% Ophth Soln EA EYE 1 drop HS LILIANA Administration Melatonin 6 mg 08/27/19 21:00 08/28/19 20:44 Melatonin PO 6 mg HS LILIANA Administration Metolazone 2.5 mg 08/28/19 09:00 08/28/19 09:21 Zaroxolyn PO 2.5 mg MWF LILIANA Administration Pantoprazole Sodium 40 mg 08/27/19 09:00 08/29/19 09:32 Protonix PO 40 mg DAILY LILIANA Administration Polyethylene Glycol 17 gm 08/27/19 09:00 08/29/19 09:32 Miralax PO 17 gm DAILY LILIANA Administration Potassium Chloride 10 meq 08/27/19 09:00 08/29/19 09:32 Klor-Con 10 PO 10 meq DAILY LILIANA Administration Senna/Docusate Sodium 1 tab 08/27/19 09:00 08/29/19 09:32 Senokot S PO 1 tab BID LILIANA Administration Sertraline HCl 100 mg 08/27/19 09:00 08/29/19 09:32 Zoloft PO 100 mg DAILY LILIANA Administration - Exam General Appearance: NAD, awake alert Eye: PERRL ENT: normocephalic atraumatic Neck: supple Heart: RRR Respiratory: CTAB, normal chest expansion Gastrointestinal: soft, no palpable masses Neurological: cranial nerve grossly intact, no focal deficits Hosp A/P - Plan Aspiration pneumonia -CTX,zithromax Afib -rate controlled -c oreg -on coumadin - therapuetic -pharm to dose and daily inr CHF, acute on chronic sytolic CHF exacerbation echo 06/2019 -- EF 45%; severe TR, dec RV fn, LVH, KOBY. - bnp quite high -lasix 40 iv bid -hold isodrill, stop norvasc, coreg w. holds DM2 - on glipizide PVD- asa+statin. once more stable and better, PT c/s and post acute mgmt. ----c/s placed.
[2019-08-29] MEDS: Insulin Regular 300 UNITS/3 ML VIAL SC PRN (17:58)
[2019-08-29] MEDS: Latanoprost 0.005% Ophth Soln 2.5 ml Bottle EA EYE SCH (20:23)
[2019-08-29] MEDS: Warfarin Sodium 5 MG TAB PO SCH (20:24)
[2019-08-29] MEDS: Melatonin 3 MG TAB PO SCH (20:24)
[2019-08-29] MEDS: Atorvastatin Calcium 10 MG TAB PO SCH (20:24)
[2019-08-30 04:53] LABS: INR-International Normal Ratio 1.9; Prothrombin Time 21.7 SEC (12.0-14.7)
[2019-08-30] MEDS: Furosemide 40 MG/4 ML VIAL SLOW IVP SCH ×2 (05:20→13:43)
[2019-08-30] MEDS: Aspirin 81 mg Enteric Coated Tablet PO SCH (08:22)
[2019-08-30] MEDS: Potassium Chloride 10 MEQ TAB PO SCH (08:23)
[2019-08-30] MEDS: Azithromycin 250 MG TAB PO SCH (08:23)
[2019-08-30] MEDS: Furosemide 40 MG TAB PO SCH (08:23)
[2019-08-30] MEDS: Metolazone 2.5 MG TAB PO SCH (08:23)
[2019-08-30] MEDS: Carvedilol 6.25 MG TAB PO SCH ×2 (08:23→21:03)
[2019-08-30] MEDS: Polyethylene Glycol 3350 17 GM Packet PO SCH (08:24)
[2019-08-30] MEDS: hydrALAZINE 10 MG TAB PO SCH ×3 (08:24→21:03)
[2019-08-30] MEDS: Senokot S 8.6-50 MG TAB PO SCH ×2 (08:24→21:03)
[2019-08-30] MEDS: cefTRIAXone\\ROCEPHIN 1 GM in Sodium Chloride 0.9% 100 ML IVPB SCH (12:10)
--- NOTE | 2019-08-30 12:47 | PDOC.HOSPP ---
- Subjective Encounter Date: 08/30/19 Encounter Time: 11:20 Subjective: awake , has dementia. not able to make much conversation. - Objective Vital Signs & Weight: Vital Signs (12 hours) Temp Pulse Pulse Pulse Resp BP BP 08/30/19 11:41 97.8 F 84 20 08/30/19 10:05 83 79 127/57 L 121/57 L 08/30/19 08:08 97.8 F 88 20 08/30/19 07:43 08/30/19 05:48 08/30/19 03:22 98.6 F 90 18 BP BP Pulse Ox 08/30/19 11:41 107/59 L 96 08/30/19 10:05 08/30/19 08:08 124/62 94 L 08/30/19 07:43 93 L 08/30/19 05:48 93 L 08/30/19 03:22 107/53 L 92 L Weight Admit Weight 196 lb 12.8 oz Weight 195 lb 1.6 oz I&O: 08/29/19 08/30/19 08/31/19 06:59 06:59 06:59 Intake Total 300 480 Output Total 400 225 Balance -100 255 Result Diagrams: 08/29/19 04:25 08/28/19 05:11 Additional Labs: Accuchecks 08/30/19 08/30/19 08/29/19 10:57 05:53 19:55 POC Glucose 169 H 135 H 208 H 08/29/19 17:08 POC Glucose 195 H Hospitalist ROS - Medication Medications: Active Medications Generic Name Dose Route Start Last Admin Trade Name Freq PRN Reason Stop Dose Admin Acetaminophen 650 mg 08/27/19 08:32 08/27/19 22:24 Tylenol PO 650 mg Q4H PRN Administration Headache/Fever/Mild Pain (1-3) Albuterol/Ipratropium 3 ml 08/27/19 15:00 08/30/19 05:48 Duoneb NEB 3 ml [id number] LILIANA Administration Aspirin 81 mg 08/27/19 09:00 08/30/19 08:22 Ecotrin PO 81 mg DAILY LILIANA Administration Atorvastatin Calcium 10 mg 08/27/19 21:00 08/29/19 20:24 Lipitor PO 10 mg HS LILIANA Administration Azithromycin 250 mg 08/29/19 09:00 08/30/19 08:23 Zithromax PO 09/01/19 09:01 250 mg DAILY LILIANA Administration Carvedilol 6.25 mg 08/27/19 09:00 08/30/19 08:23 Coreg PO 6.25 mg BID LILIANA Administration Cholecalciferol 5,000 units 08/28/19 09:00 08/30/19 08:23 Vitamin D3 PO 5,000 units DAILY LLIIANA Administration Dorzolamide/Timolol 1 drop 08/27/19 21:00 08/29/19 20:23 Cosopt 2-0.5% Ophth Soln EA EYE 1 drop HS LILIANA Administration Furosemide 40 mg 08/27/19 09:00 08/30/19 08:23 Lasix PO 40 mg 0900 LILIANA Administration Furosemide 40 mg 08/27/19 14:00 08/30/19 05:20 Lasix SLOW IVP 40 mg 0600,1400 LILIANA Administration Glipizide 2.5 mg 08/28/19 08:00 08/30/19 08:22 Glucotrol Xl PO 2.5 mg QAM-WM LILIANA Administration Hydralazine HCl 20 mg 08/28/19 15:00 08/30/19 08:24 Apresoline PO 20 mg TID LILIANA Administration Ceftriaxone Sodium 1 gm/ 100 mls @ 200 mls/hr 08/28/19 13:00 08/30/19 12:10 Sodium Chloride IVPB 100 mls Q24HR LILIANA Administration Insulin Human Regular 0 units 08/28/19 12:20 08/29/19 17:58 Humulin R SC 2 unit .MODERATE SLIDING SC PRN Administration MODERATE SLIDING SCALE Protocol Isosorbide Mononitrate 10 mg 08/27/19 09:00 08/28/19 09:20 Ismo PO 10 mg BID LILIANA Administration Latanoprost 1 drop 08/27/19 21:00 08/29/19 20:23 Xalatan 0.005% Ophth Soln EA EYE 1 drop HS LILIANA Administration Melatonin 6 mg 08/27/19 21:00 08/29/19 20:24 Melatonin PO 6 mg HS LILIANA Administration Metolazone 2.5 mg 08/28/19 09:00 08/30/19 08:23 Zaroxolyn PO 2.5 mg MWF LILIANA Administration Pantoprazole Sodium 40 mg 08/27/19 09:00 08/30/19 08:23 Protonix PO 40 mg DAILY LILIANA Administration Polyethylene Glycol 17 gm 08/27/19 09:00 08/30/19 08:24 Miralax PO 17 gm DAILY LILIANA Administration Potassium Chloride 10 meq 08/27/19 09:00 08/30/19 08:23 Klor-Con 10 PO 10 meq DAILY LILIANA Administration Senna/Docusate Sodium 1 tab 08/27/19 09:00 08/30/19 08:24 Senokot S PO 1 tab BID LILIANA Administration Sertraline HCl 100 mg 08/27/19 09:00 08/30/19 08:24 Zoloft PO 100 mg DAILY LILIANA Administration Warfarin Sodium 5 mg 08/29/19 21:00 08/29/19 20:24 Coumadin PO 5 mg 2100 LILIANA Administration - Exam General Appearance: NAD, awake alert Eye: PERRL ENT: normocephalic atraumatic Neck: supple Heart: RRR Respiratory: CTAB, normal chest expansion Gastrointestinal: soft, normal bowel sounds Neurological: cranial nerve grossly intact, no focal deficits Hosp A/P - Plan Aspiration pneumonia -CTX,zithromax Afib -rate controlled -c oreg -on coumadin - therapuetic -pharm to dose and daily inr CHF, acute on chronic sytolic CHF exacerbation echo 06/2019 -- EF 45%; severe TR, dec RV fn, LVH, KOBY. - bnp quite high -lasix 40 iv bid -hold isodrill, stop norvasc, coreg w. holds -appears euvolumic now. - no need for BNP as monitoring. DM2 - on glipizide PVD- asa+statin. once more stable and better, PT c/s and post acute mgmt. ----c/s placed.
[2019-08-30] MEDS: Insulin Regular 300 UNITS/3 ML VIAL SC PRN (17:00)
[2019-08-30] MEDS: Latanoprost 0.005% Ophth Soln 2.5 ml Bottle EA EYE SCH (21:02)
[2019-08-30] MEDS: Atorvastatin Calcium 10 MG TAB PO SCH (21:03)
[2019-08-30] MEDS: Warfarin Sodium 5 MG TAB PO SCH (21:03)
[2019-08-30] MEDS: Melatonin 3 MG TAB PO SCH (21:04)
[2019-08-31 04:59] LABS: INR-International Normal Ratio 1.7
[2019-08-31] MEDS: Furosemide 40 MG/4 ML VIAL SLOW IVP SCH ×2 (06:04→14:51)
[2019-08-31] MEDS: Azithromycin 250 MG TAB PO SCH (09:09)
[2019-08-31] MEDS: Aspirin 81 mg Enteric Coated Tablet PO SCH (09:09)
[2019-08-31] MEDS: Carvedilol 6.25 MG TAB PO SCH ×2 (09:09→20:40)
[2019-08-31] MEDS: Potassium Chloride 10 MEQ TAB PO SCH (09:10)
[2019-08-31] MEDS: Senokot S 8.6-50 MG TAB PO SCH ×2 (09:10→20:44)
[2019-08-31] MEDS: Furosemide 40 MG TAB PO SCH (09:10)
[2019-08-31] MEDS: Polyethylene Glycol 3350 17 GM Packet PO SCH (09:10)
[2019-08-31] MEDS: hydrALAZINE 10 MG TAB PO SCH ×3 (09:10→20:41)
[2019-08-31] MEDS: cefTRIAXone\\ROCEPHIN 1 GM in Sodium Chloride 0.9% 100 ML IVPB SCH (12:51)
[2019-08-31] MEDS: Insulin Regular 300 UNITS/3 ML VIAL SC PRN (12:52)
--- NOTE | 2019-08-31 15:50 | PDOC.HOSPP ---
- Subjective Encounter Date: 08/31/19 Encounter Time: 15:45 Subjective: f/u for PNA and chronic atrial fibrillation on Rocephin/Zithromax and Coreg/ Coumadin. - Objective Vital Signs & Weight: Vital Signs (12 hours) Temp Pulse Resp BP BP Pulse Ox 08/31/19 15:08 87 16 08/31/19 15:00 98.1 F 87 16 117/61 91 L 08/31/19 14:51 73 126/74 08/31/19 12:35 97.9 F 95 20 143/66 H 93 L 08/31/19 07:34 98.7 F 85 20 137/62 95 08/31/19 07:33 98 08/31/19 07:32 68 12 08/31/19 06:05 98.2 F 73 20 130/62 96 08/31/19 04:21 93 L Weight Admit Weight 196 lb 12.8 oz Weight 195 lb 1.6 oz I&O: 08/30/19 08/31/19 09/01/19 06:59 06:59 06:59 Intake Total 480 2037 Output Total 225 1300 Balance 255 737 Result Diagrams: 08/29/19 04:25 08/28/19 05:11 Additional Labs: Accuchecks 08/31/19 08/31/19 08/30/19 11:28 05:37 20:46 POC Glucose 271 H 107 127 H 08/30/19 16:04 POC Glucose 206 H Laboratory Tests 08/27/19 08/28/19 08/29/19 06:40 05:11 04:25 INR 3.3 3.0 2.2 08/30/19 08/31/19 04:01 04:33 INR 1.9 1.7 EKG Reviewed by me: Yes (Tele - A-fib in 80's) Hospitalist ROS - Medication Medications: Active Medications Generic Name Dose Route Start Last Admin Trade Name Freq PRN Reason Stop Dose Admin Acetaminophen 650 mg 08/27/19 08:32 08/27/19 22:24 Tylenol PO 650 mg Q4H PRN Administration Headache/Fever/Mild Pain (1-3) Albuterol/Ipratropium 3 ml 08/27/19 15:00 08/31/19 15:08 Duoneb NEB 3 ml [id number] LILIANA Administration Aspirin 81 mg 08/27/19 09:00 08/31/19 09:09 Ecotrin PO 81 mg DAILY LILIANA Administration Atorvastatin Calcium 10 mg 08/27/19 21:00 08/30/19 21:03 Lipitor PO 10 mg HS LILIANA Administration Azithromycin 250 mg 08/29/19 09:00 08/31/19 09:09 Zithromax PO 09/01/19 09:01 250 mg DAILY LILIANA Administration Carvedilol 6.25 mg 08/27/19 09:00 08/31/19 09:09 Coreg PO 6.25 mg BID LILIANA Administration Cholecalciferol 5,000 units 08/28/19 09:00 08/31/19 09:09 Vitamin D3 PO 5,000 units DAILY LILIANA Administration Dorzolamide/Timolol 1 drop 08/27/19 21:00 08/30/19 21:03 Cosopt 2-0.5% Ophth Soln EA EYE 1 drop HS LILIANA Administration Furosemide 40 mg 08/27/19 09:00 08/31/19 09:10 Lasix PO 40 mg 0900 LILIANA Administration Furosemide 40 mg 08/27/19 14:00 08/31/19 14:51 Lasix SLOW IVP 40 mg 0600,1400 LILIANA Administration Glipizide 2.5 mg 08/28/19 08:00 08/31/19 09:09 Glucotrol Xl PO 2.5 mg QAM-WM LILIANA Administration Hydralazine HCl 20 mg 08/28/19 15:00 08/31/19 14:51 Apresoline PO 20 mg TID LILIANA Administration Ceftriaxone Sodium 1 gm/ 100 mls @ 200 mls/hr 08/28/19 13:00 08/31/19 12:51 Sodium Chloride IVPB 100 mls Q24HR LILIANA Administration Insulin Human Regular 0 units 08/28/19 12:20 08/31/19 12:52 Humulin R SC 6 unit .MODERATE SLIDING SC PRN Administration MODERATE SLIDING SCALE Protocol Isosorbide Mononitrate 10 mg 08/27/19 09:00 08/28/19 09:20 Ismo PO 10 mg BID LILIANA Administration Latanoprost 1 drop 08/27/19 21:00 08/30/19 21:02 Xalatan 0.005% Ophth Soln EA EYE 1 drop HS LILIANA Administration Melatonin 6 mg 08/27/19 21:00 08/30/19 21:04 Melatonin PO 6 mg HS LILIANA Administration Metolazone 2.5 mg 08/28/19 09:00 08/30/19 08:23 Zaroxolyn PO 2.5 mg MWF LILIANA Administration Pantoprazole Sodium 40 mg 08/27/19 09:00 08/31/19 09:10 Protonix PO 40 mg DAILY LILIANA Administration Polyethylene Glycol 17 gm 08/27/19 09:00 08/31/19 09:10 Miralax PO 17 gm DAILY LILIANA Administration Potassium Chloride 10 meq 08/27/19 09:00 08/31/19 09:10 Klor-Con 10 PO 10 meq DAILY LILIANA Administration Senna/Docusate Sodium 1 tab 08/27/19 09:00 08/31/19 09:10 Senokot S PO 1 tab BID LILIANA Administration Sertraline HCl 100 mg 08/27/19 09:00 08/31/19 09:10 Zoloft PO 100 mg DAILY LILIANA Administration - Exam General Appearance: NAD General - other findings: sleepy Eye: PERRL, anicteric sclera ENT: normocephalic atraumatic, no oropharyngeal lesions Neck: supple, symmetric, no JVD, no thyromegaly, no lymphadenopathy Heart: no gallops, no rubs, normal peripheral pulses, irregular Respiratory - other findings: diminished in bases, occasional crackles bilat Gastrointestinal: soft, non-tender, non-distended, normal bowel sounds, no palpable masses Extremities: no cyanosis, no clubbing, 1+ LE edema Skin: normal turgor, no lesions Neurological: no new deficit Musculoskeletal: normal tone, generalized weakness Psychiatric: oriented to person, somnolent, lethargic Hosp A/P (1) Aspiration pneumonia Code(s): J69.0 - PNEUMONITIS DUE TO INHALATION OF FOOD AND VOMIT Status: Acute Plan: Suspected, continue Rocephin/Zithromax, O2 PRN, Duonebs (2) Acute on chronic combined systolic and diastolic ACC/AHA stage C congestive heart failure Code(s): I50.43 - ACUTE ON CHRONIC COMBINED SYSTOLIC AND DIASTOLIC HRT FAIL Status: Acute Plan: Continue Lasix IV, serial I/O's, daily weight, EF 40-45% (3) Physical deconditioning Code(s): R53.81 - OTHER MALAISE Status: Chronic Plan: PT for mobilization (4) Diabetes mellitus type 2, insulin dependent Code(s): E11.9 - TYPE 2 DIABETES MELLITUS WITHOUT COMPLICATIONS; Z79.4 - ALF (CURRENT) USE OF INSULIN Status: Chronic Plan: ISS, continue Glipizide (5) Pulmonary artery hypertension Code(s): I27.21 - SECONDARY PULMONARY ARTERIAL HYPERTENSION Status: Chronic (6) Chronic anticoagulation 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
[2019-08-31] MEDS: Warfarin Sodium 5 MG TAB PO SCH (16:15)
[2019-08-31] MEDS: Latanoprost 0.005% Ophth Soln 2.5 ml Bottle EA EYE SCH (20:40)
[2019-08-31] MEDS: Atorvastatin Calcium 10 MG TAB PO SCH (20:40)
[2019-08-31] MEDS: Isosorbide Mononitrate 20 MG TAB PO SCH (20:41)
[2019-08-31] MEDS: Melatonin 3 MG TAB PO SCH (20:43)
[2019-09-01 04:40] LABS: INR-International Normal Ratio 1.7; Prothrombin Time 19.8 SEC (12.0-14.7)
[2019-09-01] MEDS: Furosemide 40 MG/4 ML VIAL SLOW IVP SCH (05:24)
[2019-09-01] MEDS: hydrALAZINE 10 MG TAB PO SCH ×4 (09:09→21:11)
[2019-09-01] MEDS: Isosorbide Mononitrate 20 MG TAB PO SCH ×2 (09:09→21:11)
[2019-09-01] MEDS: Potassium Chloride 10 MEQ TAB PO SCH (09:09)
[2019-09-01] MEDS: Furosemide 40 MG TAB PO SCH (09:09)
[2019-09-01] MEDS: Azithromycin 250 MG TAB PO SCH (09:10)
[2019-09-01] MEDS: Carvedilol 6.25 MG TAB PO SCH ×2 (09:10→21:10)
[2019-09-01] MEDS: Polyethylene Glycol 3350 17 GM Packet PO SCH (09:10)
[2019-09-01] MEDS: Aspirin 81 mg Enteric Coated Tablet PO SCH (09:10)
[2019-09-01] MEDS: Senokot S 8.6-50 MG TAB PO SCH (09:11)
--- NOTE | 2019-09-01 10:35 | PDOC.HOSPP ---
- Subjective Encounter Date: 09/01/19 Encounter Time: 10:25 Subjective: f/u for PNA and suspected aspiration component on Rocephin/Zithromax. States feeling better overall. No new events reported. - Objective Vital Signs & Weight: Vital Signs (12 hours) Temp Pulse Resp BP BP Pulse Ox 09/01/19 09:20 78 09/01/19 08:00 98.5 F 94 17 116/59 L 93 L 09/01/19 07:29 78 17 09/01/19 05:05 98.3 F 86 15 127/60 88 L 09/01/19 00:30 93 L 09/01/19 00:06 98 09/01/19 00:00 98 Weight Admit Weight 196 lb 12.8 oz Weight 195 lb 1.6 oz I&O: 08/31/19 09/01/19 09/02/19 06:59 06:59 06:59 Intake Total 2037 1450 Output Total 1300 1500 Balance 737 -50 Result Diagrams: 08/29/19 04:25 08/28/19 05:11 Additional Labs: Accuchecks 09/01/19 08/31/19 08/31/19 05:35 20:24 16:41 POC Glucose 99 119 H 105 08/31/19 11:28 POC Glucose 271 H Laboratory Tests 08/27/19 08/28/19 08/29/19 06:40 05:11 04:25 INR 3.3 3.0 2.2 08/30/19 08/31/19 04:01 04:33 INR 1.9 1.7 EKG Reviewed by me: Yes (Tele - A-fib in 's) Hospitalist ROS - Medication Medications: Active Medications Generic Name Dose Route Start Last Admin Trade Name Freq PRN Reason Stop Dose Admin Acetaminophen 650 mg 08/27/19 08:32 08/27/19 22:24 Tylenol PO 650 mg Q4H PRN Administration Headache/Fever/Mild Pain (1-3) Albuterol/Ipratropium 3 ml 08/27/19 15:00 09/01/19 07:29 Duoneb NEB 3 ml [id number] LILIANA Administration Aspirin 81 mg 08/27/19 09:00 09/01/19 09:10 Ecotrin PO 81 mg DAILY LILIANA Administration Atorvastatin Calcium 10 mg 08/27/19 21:00 08/31/19 20:40 Lipitor PO 10 mg HS LILIANA Administration Carvedilol 6.25 mg 08/27/19 09:00 09/01/19 09:10 Coreg PO 6.25 mg BID LILIANA Administration Cholecalciferol 5,000 units 08/28/19 09:00 09/01/19 09:08 Vitamin D3 PO 5,000 units DAILY LILAINA Administration Dorzolamide/Timolol 1 drop 08/27/19 21:00 08/31/19 20:41 Cosopt 2-0.5% Ophth Soln EA EYE 1 drop HS LILIANA Administration Furosemide 40 mg 08/27/19 09:00 09/01/19 09:09 Lasix PO 40 mg 0900 LILIANA Administration Furosemide 40 mg 08/27/19 14:00 09/01/19 05:24 Lasix SLOW IVP 40 mg 0600,1400 LILIANA Administration Glipizide 2.5 mg 08/28/19 08:00 09/01/19 09:07 Glucotrol Xl PO 2.5 mg QAM-WM LILIANA Administration Hydralazine HCl 20 mg 08/28/19 15:00 09/01/19 09:20 Apresoline PO Not Given TID [facility] Ceftriaxone Sodium 1 gm/ 100 mls @ 200 mls/hr 08/28/19 13:00 08/31/19 12:51 Sodium Chloride IVPB 100 mls Q24HR LILIANA Administration Insulin Human Regular 0 units 08/28/19 12:20 08/31/19 12:52 Humulin R SC 6 unit .MODERATE SLIDING SC PRN Administration MODERATE SLIDING SCALE Protocol Isosorbide Mononitrate 10 mg 08/27/19 09:00 09/01/19 09:09 Ismo PO 10 mg BID LILIANA Administration Latanoprost 1 drop 08/27/19 21:00 08/31/19 20:40 Xalatan 0.005% Ophth Soln EA EYE 1 drop HS LILIANA Administration Melatonin 6 mg 08/27/19 21:00 08/31/19 20:43 Melatonin PO 6 mg HS LILIANA Administration Metolazone 2.5 mg 08/28/19 09:00 08/30/19 08:23 Zaroxolyn PO 2.5 mg MWF LILIANA Administration Pantoprazole Sodium 40 mg 08/27/19 09:00 09/01/19 09:08 Protonix PO 40 mg DAILY LILIANA Administration Polyethylene Glycol 17 gm 08/27/19 09:00 09/01/19 09:10 Miralax PO Not Given DAILY LILIANA Potassium Chloride 10 meq 08/27/19 09:00 09/01/19 09:09 Klor-Con 10 PO 10 meq DAILY LILIANA Administration Senna/Docusate Sodium 1 tab 08/27/19 09:00 09/01/19 09:11 Senokot S PO 1 tab BID LILIANA Administration Sertraline HCl 100 mg 08/27/19 09:00 09/01/19 09:09 Zoloft PO 100 mg DAILY LILIANA Administration Warfarin Sodium 5 mg 08/31/19 17:00 08/31/19 16:15 Coumadin PO 5 mg [id number] LILIANA Administration - Exam General Appearance: NAD, awake alert Eye: PERRL, anicteric sclera ENT: normocephalic atraumatic, no oropharyngeal lesions Neck: supple, symmetric, no JVD, no thyromegaly, no lymphadenopathy Heart: no gallops, no rubs, normal peripheral pulses, irregular, murmur present Heart - other findings: S1, S2 Respiratory: CTAB, no rales, normal chest expansion, rhonchi Respiratory - other findings: diminished in bases Gastrointestinal: soft, non-tender, non-distended, normal bowel sounds, no palpable masses, no hepatomegaly Extremities: no cyanosis, no clubbing, no edema Skin: normal turgor, no lesions Neurological: no new deficit Musculoskeletal: normal tone, generalized weakness Psychiatric: oriented to person, flat affect Hosp A/P (1) Aspiration pneumonia Code(s): J69.0 - PNEUMONITIS DUE TO INHALATION OF FOOD AND VOMIT Status: Acute Plan: Continue Rocephin another 24h then convert to po option, Duonebs q4h prn (2) Acute on chronic combined systolic and diastolic ACC/AHA stage C congestive heart failure Code(s): I50.43 - ACUTE ON CHRONIC COMBINED SYSTOLIC AND DIASTOLIC HRT FAIL Status: Acute Plan: Continue Lasix 40mg daily, Coreg/ASA (3) Physical deconditioning Code(s): R53.81 - OTHER MALAISE Status: Chronic Plan: PT for mobilization (4) Diabetes mellitus type 2, insulin dependent Code(s): E11.9 - TYPE 2 DIABETES MELLITUS WITHOUT COMPLICATIONS; Z79.4 - RETIREMENT (CURRENT) USE OF INSULIN Status: Chronic (5) Pulmonary artery hypertension Code(s): I27.21 - SECONDARY PULMONARY ARTERIAL HYPERTENSION Status: Chronic (6) Chronic anticoagulation 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
[2019-09-01] MEDS: cefTRIAXone\\ROCEPHIN 1 GM in Sodium Chloride 0.9% 100 ML IVPB SCH (13:21)
[2019-09-01] MEDS: Warfarin Sodium 5 MG TAB PO SCH (16:13)
[2019-09-01] MEDS: Atorvastatin Calcium 10 MG TAB PO SCH (21:10)
[2019-09-01] MEDS: Latanoprost 0.005% Ophth Soln 2.5 ml Bottle EA EYE SCH (21:10)
[2019-09-01] MEDS: Melatonin 3 MG TAB PO SCH (21:11)
[2019-09-02] MEDS: Senokot S 8.6-50 MG TAB PO SCH ×3 (00:16→21:26)
[2019-09-02 04:46] LABS: INR-International Normal Ratio 1.8; Prothrombin Time 20.6 SEC (12.0-14.7)
[2019-09-02] MEDS: Metolazone 2.5 MG TAB PO SCH (08:49)
[2019-09-02] MEDS: Potassium Chloride 10 MEQ TAB PO SCH (08:50)
[2019-09-02] MEDS: hydrALAZINE 10 MG TAB PO SCH ×3 (08:50→21:19)
[2019-09-02] MEDS: Isosorbide Mononitrate 20 MG TAB PO SCH ×2 (08:50→21:22)
[2019-09-02] MEDS: Aspirin 81 mg Enteric Coated Tablet PO SCH (08:51)
[2019-09-02] MEDS: Carvedilol 6.25 MG TAB PO SCH ×2 (08:51→21:23)
[2019-09-02] MEDS: Furosemide 40 MG TAB PO SCH (08:51)
[2019-09-02] MEDS: Polyethylene Glycol 3350 17 GM Packet PO SCH (08:53)
[2019-09-02] MEDS: cefTRIAXone\\ROCEPHIN 1 GM in Sodium Chloride 0.9% 100 ML IVPB SCH (14:01)
[2019-09-02] MEDS: Warfarin Sodium 5 MG TAB PO SCH (18:04)
[2019-09-02] MEDS: Latanoprost 0.005% Ophth Soln 2.5 ml Bottle EA EYE SCH (21:19)
[2019-09-02] MEDS: Melatonin 3 MG TAB PO SCH (21:24)
[2019-09-02] MEDS: Atorvastatin Calcium 10 MG TAB PO SCH (21:24)
[2019-09-03 04:51] LABS: INR-International Normal Ratio 1.9; Prothrombin Time 21.3 SEC (12.0-14.7)
[2019-09-03] MEDS: Isosorbide Mononitrate 20 MG TAB PO SCH (08:32)
[2019-09-03] MEDS: Furosemide 40 MG TAB PO SCH (08:32)
[2019-09-03] MEDS: Aspirin 81 mg Enteric Coated Tablet PO SCH (08:32)
[2019-09-03] MEDS: Carvedilol 6.25 MG TAB PO SCH (08:32)
[2019-09-03] MEDS: Potassium Chloride 10 MEQ TAB PO SCH (08:33)
[2019-09-03] MEDS: hydrALAZINE 10 MG TAB PO SCH (08:33)
[2019-09-03] MEDS: Polyethylene Glycol 3350 17 GM Packet PO SCH (08:38)
[2019-09-03] MEDS: Senokot S 8.6-50 MG TAB PO SCH (08:38)
--- NOTE | 2019-09-03 11:21 | DIS ---
DATE OF ADMISSION: 08/28/2019 DATE OF DISCHARGE: 09/02/2019 DISCHARGE DIAGNOSES: 1. Aspiration pneumonia, suspected, improved. 2. Acute on chronic combined systolic and diastolic congestive heart failure exacerbation with ejection fraction of 40% to 45%. 3. Physical deconditioning. 4. Diabetes mellitus, type 2. 5. Pulmonary artery hypertension. 6. Chronic anticoagulation with Coumadin. CONSULTATIONS: None. PERTINENT LABORATORY AND X-RAY FINDINGS: Creatinine ranged between 1.22 to 1.45. Estimated GFR ranged between 41 to 50. Lactic acid level 1.0. Troponin I ranged between 0.019 to 0.047. BNP ranged between 1039 to 1663, previously 1066 on 07/08/2019. CBC showed a hemoglobin ranging between 9.1 to 10.0. INR ranged between 1.7 to 3.0. Portable chest x-ray dated 08/26/2019, showed increased density in the perihilar regions, likely pneumonitis/aspiration versus edema. HOSPITAL COURSE: The patient was initially admitted with increased shortness of breath and question of pneumonia. The patient underwent general evaluation including chest imaging with radiographs showing questionable aspiration pneumonitis/pneumonia. The patient was placed on broad-spectrum IV antibiotic therapy and given bronchodilator therapy. The patient was also noted with mild volume overload, receiving IV Lasix. The patient had excellent urine output and diuresis with Lasix, which was converted back to oral agent prior to discharge. The patient continued on IV Rocephin through the remainder of the hospital course without recurrence or documentation of fever and normal white blood cell count during the hospital course. The patient was placed on consistent carbohydrate diet and tolerated without difficulty. Overall, the patient did remain clinically stable throughout the hospital course. I have examined the patient at the time of discharge and discussed followup instructions. The patient verbalized understanding and in agreement, and ready for discharge on 09/02/2019. DISCHARGE MEDICATIONS: 1. Enteric-coated aspirin 81 mg p.o. daily. 2. Symbicort 160/4.5 two puffs inhaled b.i.d. 3. Coreg 6.25 mg p.o. b.i.d. 4. Vitamin D3 of 125 mcg p.o. daily. 5. Dorzolamide/timolol one drop to each eye b.i.d. 6. Glucotrol XL 2.5 mg p.o. q.a.m. 7. Humulin R sliding scale. 8. DuoNeb 3 mL nebulized q.8 hours p.r.n. 9. Isosorbide mononitrate 10 mg p.o. b.i.d. 10. Melatonin 6 mg p.o. at bedtime. 11. Protonix 20 mg p.o. daily. 12. K-Dur 10 mEq p.o. daily. 13. Sertraline 100 mg p.o. daily. 14. Simvastatin 20 mg p.o. at bedtime. 15. Coumadin 5 mg on Monday, , Monday, and Monday and 7.5 mg on Tuesdays and Saturdays. 16. Lasix 40 mg p.o. daily. 17. Hydralazine 50 mg p.o. t.i.d. 18. Xalatan 0.005% one drop to each eye at bedtime. 19. Metolazone 2.5 mg p.o. Monday, Monday, and Monday. 20. MiraLAX 17 g p.o. daily. FOLLOWUP: The patient may follow up with Dr. Hardeep Al within 7 days of discharge. CONDITION ON DISCHARGE: Fair. ACTIVITY: Ad chalo, rolling walker with standby assistance and high fall risk precautions. DIET: ADA. CODE STATUS: Full. DISPOSITION: Discharged home to [facility] on 09/02/2019. TIME SPENT: Total time in preparing and coordinating discharge, 33 minutes. Job ID: [id number]
[2019-09-03 11:36] VITALS: BP 115/75; TEMP 98.3
[2019-09-03] MEDS: cefTRIAXone\\ROCEPHIN 1 GM in Sodium Chloride 0.9% 100 ML IVPB SCH (12:03)
--- NOTE | 2019-09-03 14:23 | DIS ---
DATE OF ADMISSION: 08/28/2019 DATE OF DISCHARGE: 09/03/2019 ADDENDUM: HOSPITAL COURSE: The patient's discharge was held for approximately 24 hours due to delay in receiving approval from [facility]. The patient is currently with stable vital signs, tolerating regular p.o. intake with telemetry monitoring showing atrial fibrillation with controlled rate. I have examined the patient at the time of discharge and discussed followup instructions. The patient overall clinically stable and ready for discharge back to [facility] on 09/03/2019. Please see dictated discharge summary on 09/02/2019 for full details and medication reconciliation. Job ID: [id number]
[2019-09-03] MEDS ORDERED: Warfarin Sodium 7.5 MG TAB PO SCH (17:00)
--- NOTE | 2019-09-03 20:13 | PDOC.HOSPP ---
- Subjective Encounter Date: 09/02/19 Encounter Time: 10:30 Subjective: f/u for PNA, A-fib on current Rocephin/Zithromax. States feeling better and denies SOB. No fever or chills. Tolerating po intake per nursing. - Objective Vital Signs & Weight: Vital Signs (12 hours) Temp Pulse Resp BP Pulse Ox 09/03/19 11:30 98.3 F 83 16 115/75 94 L Weight Admit Weight 196 lb 12.8 oz Weight 197 lb 9.6 oz I&O: 09/02/19 09/03/19 09/04/19 06:59 06:59 06:59 Intake Total 1050 1120 Output Total 1400 1450 Balance -350 -330 Result Diagrams: 08/29/19 04:25 08/28/19 05:11 Additional Labs: Accuchecks 09/03/19 09/03/19 09/02/19 11:09 05:38 20:26 POC Glucose 139 H 108 169 H Laboratory Tests 08/27/19 08/28/19 08/29/19 06:40 05:11 04:25 INR 3.3 3.0 2.2 08/30/19 08/31/19 04:01 04:33 INR 1.9 1.7 EKG Reviewed by me: Yes (Tele - A-fib in 70's) - Exam General Appearance: NAD, awake alert General - other findings: smiles Eye: PERRL, anicteric sclera ENT: normocephalic atraumatic, no oropharyngeal lesions Neck: supple, symmetric, no JVD, no thyromegaly Heart: no gallops, no rubs, normal peripheral pulses, irregular, murmur present Heart - other findings: S1, S2 Respiratory: CTAB, no wheezes, no rales, no ronchi, normal chest expansion Gastrointestinal: soft, non-tender, non-distended, normal bowel sounds, no palpable masses Extremities: no cyanosis, no clubbing, no edema Skin: normal turgor, no lesions Neurological: cranial nerve grossly intact, no new deficit Musculoskeletal: normal tone, generalized weakness Psychiatric: oriented to person Hosp A/P (1) Aspiration pneumonia Code(s): J69.0 - PNEUMONITIS DUE TO INHALATION OF FOOD AND VOMIT Status: Acute Plan: Continue Rocephin/Zithromax (2) Acute on chronic combined systolic and diastolic ACC/AHA stage C congestive heart failure Code(s): I50.43 - ACUTE ON CHRONIC COMBINED SYSTOLIC AND DIASTOLIC HRT FAIL Status: Acute Plan: Improved, continue Lasix 40mg daily (3) Physical deconditioning Code(s): R53.81 - OTHER MALAISE Status: Chronic (4) Diabetes mellitus type 2, insulin dependent Code(s): E11.9 - TYPE 2 DIABETES MELLITUS WITHOUT COMPLICATIONS; Z79.4 - FAMILY AND CONSUMER EDUCATION TEACHER (CURRENT) USE OF INSULIN Status: Chronic (5) Pulmonary artery hypertension Code(s): I27.21 - SECONDARY PULMONARY ARTERIAL HYPERTENSION Status: Chronic (6) Chronic anticoagulation Code(s): Z79.01 - PRISON (CURRENT) USE OF ANTICOAGULANTS Status: Chronic Plan: Continue Coumadin, serial PT/INR - Plan continue antibiotics, social media project manager, speech therapy, respiratory therapy, DVT proph w/SCDs Stable currently Lasix 40mg po daily Continue Coumadin with daily PT/INR Continue Rocephin IV another 24h Continue Coreg/ASA AM lab: PT/INR Likely back to SNF in 24h
== END 2019-09-03 13:10 | DRG 177 ==
LOC: ERS 18:37 → ERHOLD 22:43 → 2NO 08-27 16:22 → OBSVTOIN 08-28 15:30
PROVIDERS: ADMIT Internal Medicine; ATTEND Internal Medicine
DX: J69.0 Pneumonitis due to inhalation of food and vomit (principal); I50.43 Acute on chronic combined systolic (congestive) and diastolic (congestive) heart failure; I27.20 Pulmonary hypertension, unspecified; I11.0 Hypertensive heart disease with heart failure; I25.10 Atherosclerotic heart disease of native coronary artery without angina pectoris; E11.51 Type 2 diabetes mellitus with diabetic peripheral angiopathy without gangrene; I48.91 Unspecified atrial fibrillation; E78.5 Hyperlipidemia, unspecified; K21.9 Gastro-esophageal reflux disease without esophagitis; R40.2412 Glasgow coma scale score 13-15, at arrival to emergency department; Z95.4 Presence of other heart-valve replacement; Z88.8 Allergy status to other drugs, medicaments and biological substances; Z86.73 Personal history of transient ischemic attack (TIA), and cerebral infarction without residual deficits; Z88.1 Allergy status to other antibiotic agents; Z79.01 Long term (current) use of anticoagulants; Z95.1 Presence of aortocoronary bypass graft; Z90.49 Acquired absence of other specified parts of digestive tract; I25.2 Old myocardial infarction; Z79.4 Long term (current) use of insulin
CPT/HCPCS: 36415; 36416; 71045; 80048; 80053; 82553; 83605; 83735; 83880; 84484; 85014; 85018; 85025; 85049; 85610; 90471; 90662; 90670; 93005; 94640; 96365; 96367; G0008; G0009; J0696; J1815; J1940; J3370; J3490; J7620

== ENCOUNTER 2020-01-14 14:33 | Inpatient (IN) | payer MEDICARE, MEDICAID, OTHER ==
--- NOTE | 2020-01-14 15:13 | RAD ---
Chest AP view INDICATION: Elevated calcium and UTI COMPARISON: None FINDINGS: Lungs: Perihilar interstitial and airspace opacities persist Cardiac silhouette: Moderate to prominent cardiomegaly and mitral valvular prosthesis is unchanged. Pulmonary vasculature: There is moderate pulmonary vascular congestion Pleural spaces: There are tiny bilateral pleural effusions Upper abdomen: No abnormality seen. Osseous structures: Midline sternotomy changes are similar. Chronic osseous changes are similar. Additional findings: None. IMPRESSION: Mild CHF
[2020-01-14 15:16] LABS: #Eosinphils 0.4 thou/uL (0.0-0.7); #Lymphocytes 1.4 thou/uL (1.20-3.40); #Monocytes 0.7 thou/uL (0.11-0.59); %Basophils 0.4 % (0.0-1.0); %Eosinophils 5.5 % (0.0-10.0); %Lymphocytes 21.9 % (21.0-51.0); %Monocytes 10.5 % (0.0-10.0); %Neutrophils 61.7 % (42.0-75.0); Hemoglobin 10.5 g/dL (12.0-16.0); Mean Corpuscular HGB CONC 31.1 g/dL (32.0-36.0); Mean Corpuscular Hemoglobin 31.8 pg (27.0-31.0); Mean Platelet Volume 7.7 fL (7.4-10.4); Platelet Count 207 thou/uL (130-400); RBC Distribution Width 14.5 % (11.5-14.5); Red Blood Cell (RBC) Count 3.29 mill/uL (4.20-5.40); White Blood Cell (WBC) Count 6.5 thou/uL (4.8-10.8)
[2020-01-14 15:39] LABS: ALT (SGPT) 14 U/L (8-55); AST (SGOT) 23 U/L (5-34); Albumin 3.4 g/dL (3.4-4.8); Alkaline Phosphatase 158 U/L (40-110); Anion Gap 15 mmol/L (10-20); BUN (Urea Nitrogen) 71 mg/dL (9.8-20.1); Bilirubin, Total 0.3 mg/dL (0.2-1.2); Calc. Creatinine Clearance 0 mL/min (70-130); Carbon Dioxide 31 mmol/L (23-31); Chloride 98 mmol/L (98-107); Estimated GFR-MDRD 40; Glucose 256 mg/dL (83-110); Potassium 3.5 mmol/L (3.5-5.1); Protein, Total 7.4 g/dL (6.0-8.3); Sodium 140 mmol/L (136-145)
[2020-01-14 15:51] LABS: Calcium 12.3 mg/dL (7.8-10.44)
[2020-01-14] MEDS ORDERED: Furosemide 40 MG/4 ML VIAL ONE (16:49)
[2020-01-14] MEDS ORDERED: Piperacillin/Tazobactam 3.375 GM VIAL ONE (16:49)
[2020-01-14] MEDS ORDERED: Acetaminophen 650 MG Suppository PR PRN (17:06)
[2020-01-14] MEDS ORDERED: Senokot S 8.6-50 MG TAB PO PRN (17:06)
[2020-01-14] MEDS ORDERED: Acetaminophen 325 MG TAB PO PRN (17:06)
[2020-01-14] MEDS ORDERED: Calcium Carbonate 500 MG ChewTAB PO PRN (17:06)
[2020-01-14] MEDS ORDERED: Sodium Chloride 0.9% 1,000 ML IV SCH (17:15)
[2020-01-14] MEDS ORDERED: Dextrose 5% in Water 1,000 ML IV PRN (17:20)
[2020-01-14] MEDS ORDERED: Dextrose 50% Abboject 50 ML SYRINGE SLOW IVP PRN (17:20)
[2020-01-14 17:48] LABS: Bilirubin Negative (Negative); Blood, Urine 3+ (Negative); Clarity Extra Turbid (Clear); Glucose, Urine (Dipstick) Normal (Negative); Ketone, Urine Negative (Negative); Leukocyte 500 Leu/uL (Negative); Nitrite 1+ (Negative); Protein, Urine (Dipstick) 30 mg/dL (Neg-Trace); RBC/HPF Greater than 50 HPF (0-3); Specific Gravity, Urine 1.009 (1.002-1.036); Squamous Epithelial 0-3 HPF (0-3); Urobilinogen Normal mg/dL (Less than 2); pH, Urine 7.5 (5.0-9.0)
[2020-01-14 17:52] LABS: Bacteria/HPF 4+ HPF (None Seen)
[2020-01-14 17:53] LABS: Triple Phosphate Crystal Rare HPF (None Seen)
[2020-01-14 18:04] LABS: Hemoglobin 9.9 g/dL (12.0-16.0)
[2020-01-14 18:09] LABS: INR-International Normal Ratio 1.6; PTT 35.3 sec (22.9-36.1); Prothrombin Time 19.1 sec (12.0-14.7)
[2020-01-14 18:27] LABS: Magnesium 2.1 mg/dL (1.6-2.6); Phosphorus 4.9 mg/dL (2.3-4.7)
[2020-01-14 18:32] LABS: Troponin I 0.034 ng/mL (< 0.028)
--- NOTE | 2020-01-14 18:59 | HP ---
PRIMARY CARE PHYSICIAN: Servando. CHIEF COMPLAINT: Abnormal labs and hematuria. HISTORY OF PRESENT ILLNESS: The patient is from the [facility]. She is able to follow commands, but does not speak much. Therefore, the H and P was taken from the nursing notes and the ER record. The patient is an 89-year- old female with a past medical history significant for CHF, myocardial infarction, hypertension, hyperlipidemia, diabetes 2, CVA, pulmonary embolism, and PVD, who presents to the ER for the above complaints. According to the ER notes, the patient was sent for abnormal labs, specifically a calcium level of 12 with associated decreased appetite and lethargy. The patient was also noted to have hematuria in her urine. UA was performed as well, which was consistent with UTI. According to the ER records, the patient has not been febrile. There were no other complaints at that time. Upon presentation to the ER, the patient was afebrile with normal blood pressure, normal pulse, normal respirations, normal O2 saturation. EKG, atrial fibrillation, rate controlled 70 beats per minute with a right bundle-branch block. Chest x-ray was positive for some mild CHF. Calcium was 12.3, PTH was 4.4, glucose 256, creatinine of 1.47. The patient was given Zosyn, 1 L of fluids with Lasix , IV push, and will be admitted to the floor. PAST MEDICAL HISTORY: 1. CHF. 2. Myocardial infarction. 3. Hypertension. 4. Hyperlipidemia. 5. Diabetes 2. 6. Glaucoma. 7. GERD. 8. CVA. 9. Pulmonary embolism, on Xarelto. 10. PVD. PAST SURGICAL HISTORY: 1. Bilateral carpal tunnels. 2. Back surgery. 3. Mitral valve replacement. 4. Appendectomy. 5. Cholecystectomy. SOCIAL HISTORY: The patient lives in the [facility]. She has no history of smoking, illicit drug use, or alcohol intake. She is bed-bound. FAMILY HISTORY: Noncontributory to this case. ALLERGIES: 1. LETAIRIS. 2. TRACLEER. 3. BENADRYL. 4. METFORMIN. 5. ADEMPAS. 6. SILDENAFIL. 7. TADALAFIL. HOME MEDICATIONS: Unable to reconcile at bedside. REVIEW OF SYSTEMS: All review of systems are negative unless otherwise stated in HPI. PHYSICAL EXAMINATION: VITAL SIGNS: Temperature 98.4, blood pressure 118/58, pulse 89, respirations 18 , and 98% on 2 L nasal cannula. CONSTITUTIONAL: The patient is alert. Eyes are open, withdrawals from pain, will mumble when asked questions from [id number]. Appears uncomfortable, but nontoxic in appearance. HEENT: Head; atraumatic and normocephalic. Eyes; PERRLA. Extraocular muscles intact. ENT; bilateral TMs intact. Nares patent. Oropharynx is clear. Uvula midline. Tacky mucous membranes. NECK: Full range of motion. No cervical spinal tenderness. No JVD. No cervical adenopathy. RESPIRATORY/CHEST: Respirations are even, nonlabored. Diminished in the bases. No rhonchi. No wheezes. CARDIOVASCULAR: Irregular rhythm 3/6 murmur. No rubs or gallops. ABDOMEN: Soft, nontender, nondistended. Active bowel sounds. No guarding. No rigidity. No rebound. Negative Rovsing sign. Negative Negro sign. BACK: Unable to assess range of motion. No central spinous tenderness. No CVA tenderness. EXTREMITIES: Upper extremities; decreased range of motion. Does withdraw from pain. Sensation intact, palpable radial pulses. Lower extremities; decreased range of motion, withdrawals from pain. 2+ pitting edema. Palpable pedal pulses. NEUROLOGIC: The patient is alert, opens eyes, can follow commands. Has generalized weakness throughout and was reportedly bed-bound at the detention. LABORATORY DATA: Sodium 140, potassium 3.5, chloride 98, carbon dioxide of 31, BUN 71, creatinine 1.47, glucose 256, calcium 12.3, total bilirubin 0.3, AST 23, ALT 14, alkaline phosphatase 158, BNP 194, PTH intact 4.4. WBC 6.5, hemoglobin 10.5, hematocrit 33.6, and platelets 207. Chest x-ray was positive for mild CHF. IMPRESSION AND PLAN: 1. Hypercalcemia. We will admit the patient to medical floor inpatient status. Expected length of stay, greater than 2 midnights. The patient presented with a reported calcium of 12, upon arrival was 12.3. EKG was atrial fibrillation, rate controlled, right bundle-branch block. The patient was given 1 L of saline along with Lasix IV push. We will continue Lasix b.i.d. We hold IV fluids, give calcitonin and bisphosphonate. We will continue to monitor respiratory status. We will check a mag and phos and a TSH. 2. Urinary tract infection. The patient has had a UA at detention consistent with urinary tract infection. Upon review of previous cultures and sensitivities, the patient did have a Pseudomonas, which was only sensitive to Zosyn. We will continue Zosyn. The patient did receive one dose in the ER. 3. Congestive heart failure, chronic. The patient is in no acute respiratory distress. Does have 2+ bilateral pitting edema. X-ray was consistent with mild congestive heart failure exacerbation. BNP was 194. Place the patient on fluid restriction. Daily weights. Continue Lasix. 4. Acute kidney injury. The patient presented with a creatinine of 1.47, baseline appears to be about 1.2, is mild. We will hold IV fluid d/t mild CHF. The patient will receive Lasix and we will recheck level in the a.m. Check renal US. 5. Diabetes, type 2. The patient is on oral antihyperglycemics along with sliding scale with meals. We will hold oral antihyperglycemics. We will start moderate sliding scale with Accu-Cheks a.c. and at bedtime. 6. Pulmonary embolism history. The patient is either on Zoloft or warfarin. We will get nursing to confirm; however, the patient has hematuria, so we will hold anticoagulation for now. We will check PT/INR baseline, and we will check H and H q.6. 7. No deep venous thrombosis prophylaxis. Protonix for gastrointestinal prophylaxis. The patient is full code, was unable to get a hold of anybody at the detention to confirm any family contacts. Discussed the case with Dr. Andrew. Job ID: [id number] MTDD
[2020-01-14] MEDS ORDERED: Zoledronic Acid 4 MG in Sodium Chloride 0.9% 100 ML IVPB SCH (19:00)
[2020-01-14] MEDS ORDERED: Ondansetron PF 4 MG/2 ML Vial IVP PRN (19:31)
[2020-01-14] MEDS ORDERED: Ondansetron ODT 4 MG TAB SL PRN (19:31)
--- NOTE | 2020-01-14 20:04 | PDOC.EVN ---
Event Note - Event Note Event Note: Chart was reviewed. Patient was seen and assessed. 89-year-old lady who is a senior care resident, poor historian, presenting with hypercalcemia. Patient to receive calcitonin and bisphosphonates. Patient has a history of congestive heart failure, therefore holding off on aggressive fluid resuscitation. Attempts were made to confirm her CODE STATUS but unsuccessful at this time. Agree with findings and plan of care as documented by nurse practitioner.
--- NOTE | 2020-01-14 20:12 | ULT ---
Exam: Bilateral renal ultrasound HISTORY: Acute kidney insufficiency COMPARISON: 07/11/2019 FINDINGS: Right kidney: Normal cortical echotexture. No hydronephrosis. There is right renal cortical thinning exophytic hypoechoic focus measures 1.5 x 1.4 x 1.6 cm. Lesion is similar to the previous examination and may represent a complex cyst. Right kidney measurements: 8.4 x 3.8 x 4.7 cm. Left kidney: Markedly limited evaluation of the left renal parenchyma/left kidney. There is no gross hydronephrosis. There is left renal cortical thinning Left kidney measurements 3.9 x 7.3 x 3.8 cm cm. Urinary bladder: Decompressed due to Laureano catheter IMPRESSION: 1. Limited evaluation. Grossly no hydronephrosis. 2. Bilateral renal cortical thinning 3. Possible complex cyst in the right renal cortex.
[2020-01-14 20:30] LABS: Anion Gap 12 mmol/L (10-20); BUN (Urea Nitrogen) 66 mg/dL (9.8-20.1); Calc. Creatinine Clearance 0 mL/min (70-130); Calcium 11.6 mg/dL (7.8-10.44); Carbon Dioxide 33 mmol/L (23-31); Chloride 99 mmol/L (98-107); Estimated GFR-MDRD 43; Glucose 218 mg/dL (83-110); Potassium 3.4 mmol/L (3.5-5.1); Sodium 141 mmol/L (136-145)
[2020-01-14] MEDS ORDERED: Furosemide 20 MG/2 ML VIAL SLOW IVP SCH (21:00)
[2020-01-14] MEDS: Piperacillin/Tazobactam 2.25 GM in Sodium Chloride 0.9% 100 ML IVPB SCH (22:14)
[2020-01-14 23:59] LABS: Hemoglobin 11.1 g/dL (12.0-16.0)
[2020-01-15 03:58] LABS: #Eosinphils 0.3 thou/uL (0.0-0.7); #Lymphocytes 1.5 thou/uL (1.20-3.40); #Monocytes 0.6 thou/uL (0.11-0.59); #Neutrophils 4.2 thou/uL (1.40-6.50); %Basophils 0.1 % (0.0-1.0); %Eosinophils 5.1 % (0.0-10.0); %Lymphocytes 22.6 % (21.0-51.0); %Monocytes 9.7 % (0.0-10.0); %Neutrophils 62.5 % (42.0-75.0); Hemoglobin 10.7 g/dL (12.0-16.0); Mean Corpuscular HGB CONC 30.5 g/dL (32.0-36.0); Mean Platelet Volume 7.9 fL (7.4-10.4); Platelet Count 210 thou/uL (130-400); RBC Distribution Width 14.4 % (11.5-14.5); Red Blood Cell (RBC) Count 3.45 mill/uL (4.20-5.40); White Blood Cell (WBC) Count 6.7 thou/uL (4.8-10.8)
[2020-01-15 04:16] LABS: Anion Gap 12 mmol/L (10-20); BUN (Urea Nitrogen) 60 mg/dL (9.8-20.1); Calc. Creatinine Clearance 35 mL/min (70-130); Calcium 11.8 mg/dL (7.8-10.44); Carbon Dioxide 34 mmol/L (23-31); Chloride 97 mmol/L (98-107); Estimated GFR-MDRD 47; Glucose 185 mg/dL (83-110); Potassium 3.2 mmol/L (3.5-5.1); Sodium 140 mmol/L (136-145)
[2020-01-15] MEDS: Piperacillin/Tazobactam 2.25 GM in Sodium Chloride 0.9% 100 ML IVPB SCH ×4 (05:58→22:01)
[2020-01-15] MEDS: Furosemide 20 MG/2 ML VIAL SLOW IVP SCH ×2 (05:59→14:46)
[2020-01-15 06:21] LABS: Hemoglobin 11.1 g/dL (12.0-16.0)
[2020-01-15] MEDS ORDERED: Potassium Chloride 20 MEQ TAB PO SCH (08:00)
[2020-01-15] MEDS ORDERED: Calcitonin,Salmon,Synthetic 200 UNITS/ML MDV SC SCH (09:00)
[2020-01-15] MEDS: Calcitonin,Salmon,Synthetic 200 UNITS/ML MDV SC SCH (09:10)
[2020-01-15 11:54] LABS: SARS-CoV-2 MS2 Positive; SARS-CoV-2 N Gene Negative; SARS-CoV-2 S Gene Negative; SARS-CoV-2 by NAA Not Detected (NotDetected); SARS-CoV-2 orf1ab Negative
[2020-01-15] MEDS: HumaLOG 300 UNITS/3 ML VIAL SC PRN ×2 (17:20→22:03)
--- NOTE | 2020-01-15 18:29 | PDOC.HOSPP ---
- Subjective Encounter Date: 01/15/20 Encounter Time: 11:00 Subjective: Pt seen for followup re: hypercalcemia. Sleepy but arousable, not answering questions, could not complete ROS. - Objective Vital Signs & Weight: Vital Signs (12 hours) Temp Pulse Pulse Pulse Resp BP BP 01/15/20 14:47 97.9 F 98 20 01/15/20 11:02 96.9 F L 96 18 01/15/20 09:30 88 80 171/86 H 181/94 H 01/15/20 07:17 97.8 F 86 16 BP Pulse Ox 01/15/20 14:47 162/72 H 100 01/15/20 11:02 151/87 H 99 01/15/20 09:30 01/15/20 07:17 149/70 H 98 Weight Admit Weight 168 lb 14.4 oz Weight 168 lb 4.8 oz I&O: 01/14/20 01/15/20 01/16/20 06:59 06:59 06:59 Intake Total 680 920 Output Total 2750 1550 Balance -2070 -630 Result Diagrams: 01/15/20 06:13 01/15/20 03:39 Additional Labs: Accuchecks 01/15/20 01/15/20 01/15/20 17:22 11:09 05:48 POC Glucose 252 H 199 H 182 H 01/14/20 21:08 POC Glucose 195 H Labs and MAR were reviewed by me EKG Reviewed by me: Yes (Telemetry normal sinus rhythm) Hospitalist ROS - Review of Systems ROS unobtainable: due to mental status - Medication Medications: Active Medications Generic Name Dose Route Start Last Admin Trade Name Gina PRN Reason Stop Dose Admin Calcitonin [place] 300 units 01/15/20 09:00 01/15/20 09:10 [place] SC 01/17/20 09:01 300 unit DAILY LILIANA Administration Furosemide 20 mg 01/15/20 06:00 01/15/20 14:46 Lasix SLOW IVP 20 mg 0600,1400 LILIANA Administration Furosemide 20 mg 01/14/20 21:00 01/14/20 20:59 Lasix SLOW IVP 20 mg 2100 LILIANA Administration Piperacillin Sod/Tazobactam 100 mls @ 200 mls/hr 01/14/20 23:00 01/15/20 17: 21 Sod 2.25 gm/ Sodium Chloride IVPB 100 mls 0500,1100,1700,2300 LILIANA Administration Insulin Human Lispro 0 units 01/14/20 17:20 01/15/20 17:20 Humalog SC 6 unit .MODERATE SLIDING SC PRN Administration Moderate Correctional Scale Pantoprazole Sodium 40 mg 01/15/20 09:00 01/15/20 08:34 Protonix PO 40 mg DAILY LILIANA Administration - Exam Eye: anicteric sclera ENT: normocephalic atraumatic, no oropharyngeal lesions Neck: supple Heart: RRR Respiratory: CTAB, no wheezes Gastrointestinal: soft, non-tender Extremities: no cyanosis Psychiatric - other findings: Unable to assess Hosp A/P (1) Hypercalcemia Code(s): E83.52 - HYPERCALCEMIA Status: Acute (2) UTI (urinary tract infection) Status: Acute (3) Diabetes mellitus type 2, insulin dependent Code(s): E11.9 - TYPE 2 DIABETES MELLITUS WITHOUT COMPLICATIONS; Z79.4 - LONGTERM (CURRENT) USE OF INSULIN Status: Chronic (4) Hyperlipidemia Code(s): E78.5 - HYPERLIPIDEMIA, UNSPECIFIED Status: Chronic Qualifiers: Hyperlipidemia type: unspecified Qualified Code(s): E78.5 - Hyperlipidemia , unspecified (5) Hypertension Code(s): I10 - ESSENTIAL (PRIMARY) HYPERTENSION Status: Chronic Qualifiers: Hypertension type: essential hypertension Qualified Code(s): I10 - Essential (primary) hypertension (6) Chronic combined systolic and diastolic CHF, 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 Patient received calcitonin and bisphosphonate. Resume home medications, monitor vital signs and titrate antihypertensives as needed. Chronic kidney disease stage III stable. Congestive heart failure NYHA class II, stable. Replace potassium. Continue Accu-Cheks and insulin sliding scale. Continue intravenous Zosyn, follow urine culture.
[2020-01-15] MEDS: Isosorbide Mononitrate 20 MG TAB PO SCH (22:01)
[2020-01-15] MEDS: Carvedilol 6.25 MG TAB PO SCH (22:02)
[2020-01-15] MEDS: DorzolamidE/Timolol 2%/0.5% Ophth Soln 10 ml Bottle EA EYE SCH (22:02)
[2020-01-15] MEDS: Atorvastatin Calcium 10 MG TAB PO SCH (22:02)
[2020-01-15] MEDS: Latanoprost 0.005% Ophth Soln 2.5 ml Bottle EA EYE SCH (22:02)
[2020-01-16] MEDS: Piperacillin/Tazobactam 2.25 GM in Sodium Chloride 0.9% 100 ML IVPB SCH ×4 (05:05→22:41)
[2020-01-16] MEDS: HumaLOG 300 UNITS/3 ML VIAL SC PRN ×3 (06:44→21:41)
[2020-01-16] MEDS: Mometasone 200 MCG/Formoterol 5 MCG 120 PUFF INHALER INH SCH ×2 (07:19→18:49)
[2020-01-16] MEDS: Calcitonin,Salmon,Synthetic 200 UNITS/ML MDV SC SCH (08:40)
[2020-01-16] MEDS: Rivaroxaban 15 MG TAB PO SCH (08:41)
[2020-01-16] MEDS: Ascorbic Acid 500 mg Chewable Tablet PO SCH (08:41)
[2020-01-16] MEDS: Isosorbide Mononitrate 20 MG TAB PO SCH ×2 (08:41→20:49)
[2020-01-16] MEDS: hydrALAZINE 25 MG TAB PO SCH ×3 (08:41→17:08)
[2020-01-16] MEDS: Aspirin 81 mg Enteric Coated Tablet PO SCH (08:41)
[2020-01-16] MEDS: Furosemide 40 MG TAB PO SCH ×2 (08:42→14:00)
[2020-01-16] MEDS: DorzolamidE/Timolol 2%/0.5% Ophth Soln 10 ml Bottle EA EYE SCH ×2 (08:42→20:48)
[2020-01-16] MEDS: Carvedilol 6.25 MG TAB PO SCH ×2 (08:42→20:49)
--- NOTE | 2020-01-16 18:12 | PDOC.HOSPP ---
- Subjective Encounter Date: 01/16/20 Encounter Time: 09:00 Subjective: Patient was seen for follow-up regarding hypercalcemia. Patient is nonverbal, unable to complete review of systems. - Objective Vital Signs & Weight: Vital Signs (12 hours) Temp Pulse Pulse Pulse Resp BP BP 01/16/20 16:00 97.5 F L 88 20 01/16/20 15:24 97 99 116/58 L 123/59 L 01/16/20 11:08 98.6 F 99 18 01/16/20 06:55 98.6 F 90 20 BP Pulse Ox Pulse Ox Pulse Ox 01/16/20 16:00 114/63 99 01/16/20 15:24 98 96 01/16/20 11:08 143/67 H 100 01/16/20 06:55 130/60 100 Weight Admit Weight 168 lb 14.4 oz Weight 165 lb 1.6 oz I&O: 01/15/20 01/16/20 01/17/20 06:59 06:59 06:59 Intake Total 680 1220 1160 Output Total 2750 2150 300 Balance -2070 -930 860 Result Diagrams: 01/15/20 06:13 01/15/20 03:39 Additional Labs: Accuchecks 01/16/20 01/16/20 01/16/20 16:36 10:36 06:00 POC Glucose 357 H 161 H 193 H 01/15/20 20:45 POC Glucose 352 H Labs and MAR reviewed by me. EKG Reviewed by me: Yes (Telemetry: Normal sinus rhythm) Hospitalist ROS - Review of Systems ROS unobtainable: due to mental status - Medication Medications: Active Medications Generic Name Dose Route Start Last Admin Trade Name Blakeq PRN Reason Stop Dose Admin Ascorbic Acid 500 mg 01/16/20 09:00 01/16/20 08:41 Vitamin C PO 500 mg DAILY LILIANA Administration Aspirin 81 mg 01/16/20 09:00 01/16/20 08:41 Ecotrin PO 81 mg DAILY LILIANA Administration Atorvastatin Calcium 10 mg 01/15/20 21:00 01/15/20 22:02 Lipitor PO 10 mg HS LILIANA Administration Calcitonin [place] 300 units 01/15/20 09:00 01/16/20 08:40 Calcimar SC 01/17/20 09:01 300 unit DAILY LILIANA Administration Carvedilol 6.25 mg 01/15/20 21:00 01/16/20 08:42 Coreg PO 6.25 mg BID LILIANA Administration Dorzolamide/Timolol 1 drop 01/15/20 21:00 01/16/20 08:42 Cosopt 2-0.5% Ophth Soln EA EYE 1 drop BID LILIANA Administration Furosemide 40 mg 01/16/20 14:00 01/16/20 14:00 Lasix PO 40 mg 1400 LILIANA Administration Furosemide 40 mg 01/16/20 09:00 01/16/20 08:42 Lasix PO 40 mg 0900 LILIANA Administration Glipizide 2.5 mg 01/16/20 08:00 01/16/20 08:41 Glucotrol Xl PO 2.5 mg QAM-WM LILIANA Administration Hydralazine HCl 50 mg 01/16/20 08:00 01/16/20 17:08 Apresoline PO Not Given TID-WM LILIANA Piperacillin Sod/Tazobactam 100 mls @ 200 mls/hr 01/14/20 23:00 01/16/20 17: 25 Sod 2.25 gm/ Sodium Chloride IVPB 100 mls 0500,1100,1700,2300 LILIANA Administration Insulin Human Lispro 0 units 01/14/20 17:20 01/16/20 17:25 Humalog SC 10 unit .MODERATE SLIDING SC PRN Administration Moderate Correctional Scale Insulin Human Lispro 0 units 01/14/20 17:20 01/15/20 22:03 Humalog SC 5 unit .BEDTIME SLIDING SC PRN Administration Bedtime Correctional Scale Isosorbide Mononitrate 10 mg 01/15/20 21:00 01/16/20 08:41 Ismo PO 10 mg BID LILIANA Administration Latanoprost 1 drop 01/15/20 21:00 01/15/20 22:02 Xalatan 0.005% Ophth Soln EA EYE 1 drop HS LILIANA Administration Mometasone Furoate/Formoterol Fumar 2 puff 01/16/20 06:30 01/16/20 07:19 Dulera 200 Mcg/5 Mcg Inhaler INH Not Given BID-RT LILIANA Pantoprazole Sodium 40 mg 01/15/20 09:00 01/16/20 08:41 Protonix PO 40 mg DAILY LILIANA Administration Rivaroxaban 15 mg 01/16/20 08:00 01/16/20 08:41 Xarelto PO 15 mg QAM-WM LILIANA Administration Sertraline HCl 100 mg 01/16/20 09:00 01/16/20 08:41 Zoloft PO 100 mg DAILY LILIANA Administration - Exam General Appearance: awake alert Eye: anicteric sclera ENT: moist mucosa Neck: supple Heart: RRR Respiratory: CTAB, no rales Gastrointestinal: soft, non-tender Extremities: no cyanosis Skin: no rashes Musculoskeletal: no muscle wasting Psychiatric: normal affect, normal behavior Hosp A/P (1) Hypercalcemia Code(s): E83.52 - HYPERCALCEMIA Status: Acute (2) UTI (urinary tract infection) Status: Acute (3) Diabetes mellitus type 2, insulin dependent Code(s): E11.9 - TYPE 2 DIABETES MELLITUS WITHOUT COMPLICATIONS; Z79.4 - FPC (CURRENT) USE OF INSULIN Status: Chronic (4) Hyperlipidemia Code(s): E78.5 - HYPERLIPIDEMIA, UNSPECIFIED Status: Chronic Qualifiers: Hyperlipidemia type: unspecified Qualified Code(s): E78.5 - Hyperlipidemia , unspecified (5) Hypertension Code(s): I10 - ESSENTIAL (PRIMARY) HYPERTENSION Status: Chronic Qualifiers: Hypertension type: essential hypertension Qualified Code(s): I10 - Essential (primary) hypertension (6) Chronic combined systolic and diastolic CHF, 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 Patient received calcitonin and bisphosphonate. Check AM labs. Monitor vital signs and titrate antihypertensives as needed. Chronic kidney disease stage III stable. Congestive heart failure NYHA class II, stable. Continue Accu-Cheks and insulin sliding scale. Continue intravenous Zosyn, urine culture is growing four gram negative rods.
[2020-01-16] MEDS: Atorvastatin Calcium 10 MG TAB PO SCH (20:49)
[2020-01-16] MEDS: Latanoprost 0.005% Ophth Soln 2.5 ml Bottle EA EYE SCH (20:49)
[2020-01-17 05:09] LABS: Anion Gap 17 mmol/L (10-20); BUN (Urea Nitrogen) 68 mg/dL (9.8-20.1); Calc. Creatinine Clearance 28 mL/min (70-130); Calcium 11.5 mg/dL (7.8-10.44); Carbon Dioxide 34 mmol/L (23-31); Chloride 93 mmol/L (98-107); Estimated GFR-MDRD 37; Glucose 136 mg/dL (83-110); Potassium 3.5 mmol/L (3.5-5.1); Sodium 140 mmol/L (136-145)
[2020-01-17 05:19] LABS: Band 1 % (5-11); Eosinophils 2 % (0-10); Hemoglobin 10.5 g/dL (12.0-16.0); Hypochromia SLIGHT = 6-15 cells (100X) (0-5/hpf); Lymphocytes 8 % (21-51); MDiff Complete? YES; Mean Corpuscular HGB CONC 32.4 g/dL (32.0-36.0); Mean Corpuscular Hemoglobin 33.2 pg (27.0-31.0); Mean Platelet Volume 9.9 fL (7.4-10.4); Monocytes 20 % (0-10); Neutrophil 69 % (42-75); Platelet Count 175 thou/uL (130-400); Platelet Morphology Comment Appears Adequate; RBC Distribution Width 14.7 % (11.5-14.5); Red Blood Cell (RBC) Count 3.16 mill/uL (4.20-5.40); White Blood Cell (WBC) Count 9.9 thou/uL (4.8-10.8)
[2020-01-17] MEDS: Piperacillin/Tazobactam 2.25 GM in Sodium Chloride 0.9% 100 ML IVPB SCH ×4 (06:09→23:15)
[2020-01-17] MEDS: HumaLOG 300 UNITS/3 ML VIAL SC PRN ×3 (06:18→21:59)
[2020-01-17] MEDS: Mometasone 200 MCG/Formoterol 5 MCG 120 PUFF INHALER INH SCH ×2 (07:00→18:41)
[2020-01-17] MEDS: DorzolamidE/Timolol 2%/0.5% Ophth Soln 10 ml Bottle EA EYE SCH ×2 (08:38→21:39)
[2020-01-17] MEDS: Isosorbide Mononitrate 20 MG TAB PO SCH ×2 (08:39→21:40)
[2020-01-17] MEDS: Metolazone 2.5 MG TAB PO SCH (08:40)
[2020-01-17] MEDS: Carvedilol 6.25 MG TAB PO SCH ×2 (08:40→21:39)
[2020-01-17] MEDS: Furosemide 40 MG TAB PO SCH ×2 (08:40→14:33)
[2020-01-17] MEDS: Rivaroxaban 15 MG TAB PO SCH (08:40)
[2020-01-17] MEDS: Aspirin 81 mg Enteric Coated Tablet PO SCH (08:40)
[2020-01-17] MEDS: hydrALAZINE 25 MG TAB PO SCH ×4 (08:40→17:32)
[2020-01-17] MEDS: Ascorbic Acid 500 mg Chewable Tablet PO SCH (08:40)
[2020-01-17] MEDS: Calcitonin,Salmon,Synthetic 200 UNITS/ML MDV SC SCH (09:46)
--- NOTE | 2020-01-17 18:48 | PDOC.HOSPP ---
- Subjective Encounter Date: 01/17/20 Encounter Time: 09:00 Subjective: Patient was seen for follow-up regarding hypercalcemia. She is nonverbal, could not complete review of systems. - Objective Vital Signs & Weight: Vital Signs (12 hours) Temp Pulse Resp BP Pulse Ox 01/17/20 17:32 69 01/17/20 17:31 69 148/71 H 01/17/20 15:01 97.6 F 82 20 145/74 H 100 01/17/20 11:16 98.2 F 82 18 136/86 100 01/17/20 08:40 73 01/17/20 06:54 98.8 F 73 20 138/96 H 100 Weight Admit Weight 168 lb 14.4 oz Weight 170 lb 14.4 oz I&O: 01/16/20 01/17/20 01/18/20 06:59 06:59 06:59 Intake Total 1220 1390 Output Total 2150 575 Balance -930 815 Result Diagrams: 01/17/20 03:53 01/17/20 03:53 Additional Labs: Accuchecks 01/17/20 01/17/20 01/17/20 16:36 11:01 06:15 POC Glucose 194 H 197 H 185 H 01/16/20 21:13 POC Glucose 315 H MAR and labs reviewed by me EKG Reviewed by me: Yes (Telemetry: Atrial fibrillation) Hospitalist ROS - Review of Systems ROS unobtainable: due to mental status - Medication Medications: Active Medications Generic Name Dose Route Start Last Admin Trade Name Blakeq PRN Reason Stop Dose Admin Ascorbic Acid 500 mg 01/16/20 09:00 01/17/20 08:40 Vitamin C PO 500 mg DAILY LILIANA Administration Aspirin 81 mg 01/16/20 09:00 01/17/20 08:40 Ecotrin PO 81 mg DAILY LILIANA Administration Atorvastatin Calcium 10 mg 01/15/20 21:00 01/16/20 20:49 Lipitor PO 10 mg HS LILIANA Administration Carvedilol 6.25 mg 01/15/20 21:00 01/17/20 08:40 Coreg PO 6.25 mg BID LILIANA Administration Dorzolamide/Timolol 1 drop 01/15/20 21:00 01/17/20 08:38 Cosopt 2-0.5% Ophth Soln EA EYE 1 drop BID LILIANA Administration Furosemide 40 mg 01/16/20 09:00 01/17/20 08:40 Lasix PO 40 mg 0900 LILIANA Administration Glipizide 2.5 mg 01/16/20 08:00 01/17/20 08:40 Glucotrol Xl PO 2.5 mg QAM-WM LILIANA Administration Hydralazine HCl 50 mg 01/16/20 08:00 01/17/20 17:32 Apresoline PO Not Given TID-WM LILIANA Piperacillin Sod/Tazobactam 100 mls @ 200 mls/hr 01/14/20 23:00 01/17/20 17: 28 Sod 2.25 gm/ Sodium Chloride IVPB 100 mls 0500,1100,1700,2300 LILIANA Administration Insulin Human Lispro 0 units 01/14/20 17:20 01/17/20 11:19 Humalog SC 2 unit .MODERATE SLIDING SC PRN Administration Moderate Correctional Scale Insulin Human Lispro 0 units 01/14/20 17:20 01/16/20 21:41 Humalog SC 4 unit .BEDTIME SLIDING SC PRN Administration Bedtime Correctional Scale Isosorbide Mononitrate 10 mg 01/15/20 21:00 01/17/20 08:39 Ismo PO 10 mg BID LILIANA Administration Latanoprost 1 drop 01/15/20 21:00 01/16/20 20:49 Xalatan 0.005% Ophth Soln EA EYE 1 drop HS LILIANA Administration Metolazone 2.5 mg 01/17/20 09:00 01/17/20 08:40 Zaroxolyn PO 2.5 mg MWF LILIANA Administration Mometasone Furoate/Formoterol Fumar 2 puff 01/16/20 06:30 01/17/20 18:41 Dulera 200 Mcg/5 Mcg Inhaler INH Not Given BID-RT LILIANA Pantoprazole Sodium 40 mg 01/15/20 09:00 01/17/20 08:40 Protonix PO 40 mg DAILY LILIANA Administration Rivaroxaban 15 mg 01/16/20 08:00 01/17/20 08:40 Xarelto PO 15 mg QAM-WM LILIANA Administration Sertraline HCl 100 mg 01/16/20 09:00 01/17/20 08:40 Zoloft PO 100 mg DAILY LILIANA Administration Sodium Chloride 10 ml 01/14/20 17:01/17/20 08:41 Flush - Normal Saline IVF 10 ml Q12HR PRN Administration Saline Flush - Exam General Appearance: awake alert Eye: anicteric sclera ENT: dry oral mucosa Neck: supple Heart: RRR Respiratory: CTAB, no rales Gastrointestinal: soft, non-tender Extremities: no cyanosis Skin: no rashes Psychiatric: normal affect, normal behavior Hosp A/P (1) Hypercalcemia Code(s): E83.52 - HYPERCALCEMIA Status: Acute (2) UTI (urinary tract infection) Status: Acute (3) Acute worsening of stage 3 chronic kidney disease Code(s): N18.3 - CHRONIC KIDNEY DISEASE, STAGE 3 (MODERATE) Status: Acute (4) Diabetes mellitus type 2, insulin dependent Code(s): E11.9 - TYPE 2 DIABETES MELLITUS WITHOUT COMPLICATIONS; Z79.4 - DIRECTOR CPG (CURRENT) USE OF INSULIN Status: Chronic (5) Hyperlipidemia Code(s): E78.5 - HYPERLIPIDEMIA, UNSPECIFIED Status: Chronic Qualifiers: Hyperlipidemia type: unspecified Qualified Code(s): E78.5 - Hyperlipidemia , unspecified (6) Hypertension Code(s): I10 - ESSENTIAL (PRIMARY) HYPERTENSION Status: Chronic Qualifiers: Hypertension type: essential hypertension Qualified Code(s): I10 - Essential (primary) hypertension (7) Chronic combined systolic and diastolic CHF, 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 Hypercalcemia was most likely secondary to vitamin D use. Patient has been treated with calcitonin and bisphosphonate. Monitor vital signs and titrate antihypertensives as needed. Chronic kidney disease stage III worsening, decrease furosemide dose to 40 mg daily, recheck creatinine. Congestive heart failure NYHA class II, stable. Continue Accu-Cheks and insulin sliding scale. Continue intravenous Zosyn, urine culture is growing four gram negative rods. Await identification and sensitivities. I attempted to reach both children listed in the contact information. 1 number is not in service and the other call went to voicemail.
[2020-01-17] MEDS: Latanoprost 0.005% Ophth Soln 2.5 ml Bottle EA EYE SCH (21:39)
[2020-01-17] MEDS: Atorvastatin Calcium 10 MG TAB PO SCH (21:42)
[2020-01-18 04:28] LABS: #Eosinphils 0.4 thou/uL (0.0-0.7); #Lymphocytes 1.6 thou/uL (1.20-3.40); #Monocytes 0.7 thou/uL (0.11-0.59); #Neutrophils 5.2 thou/uL (1.40-6.50); %Basophils 0.2 % (0.0-1.0); %Eosinophils 4.7 % (0.0-10.0); %Lymphocytes 20.3 % (21.0-51.0); %Monocytes 9.1 % (0.0-10.0); %Neutrophils 65.8 % (42.0-75.0); Hemoglobin 9.9 g/dL (12.0-16.0); Mean Corpuscular HGB CONC 30.5 g/dL (32.0-36.0); Mean Corpuscular Hemoglobin 30.7 pg (27.0-31.0); Platelet Count 212 thou/uL (130-400); RBC Distribution Width 14.5 % (11.5-14.5); Red Blood Cell (RBC) Count 3.22 mill/uL (4.20-5.40); White Blood Cell (WBC) Count 7.9 thou/uL (4.8-10.8)
[2020-01-18 04:46] LABS: Anion Gap 13 mmol/L (10-20); BUN (Urea Nitrogen) 73 mg/dL (9.8-20.1); Calc. Creatinine Clearance 26 mL/min (70-130); Carbon Dioxide 35 mmol/L (23-31); Chloride 95 mmol/L (98-107); Estimated GFR-MDRD 33; Glucose 156 mg/dL (83-110); Potassium 3.2 mmol/L (3.5-5.1); Sodium 140 mmol/L (136-145)
[2020-01-18] MEDS: Piperacillin/Tazobactam 2.25 GM in Sodium Chloride 0.9% 100 ML IVPB SCH ×2 (05:51→18:19)
[2020-01-18] MEDS: HumaLOG 300 UNITS/3 ML VIAL SC PRN (06:22)
[2020-01-18] MEDS: Mometasone 200 MCG/Formoterol 5 MCG 120 PUFF INHALER INH SCH (08:09)
[2020-01-18] MEDS ORDERED: Cefdinir 300 MG CAP PO SCH (09:00)
[2020-01-18] MEDS ORDERED: Calcitonin,Salmon,Synthetic 200 UNITS/ML MDV SC SCH (11:15)
[2020-01-18] MEDS ORDERED: Sodium Chloride 0.9% 500 ML IV SCH (11:30)
[2020-01-18] MEDS: hydrALAZINE 25 MG TAB PO SCH ×2 (12:04→15:45)
[2020-01-18] MEDS: Carvedilol 6.25 MG TAB PO SCH ×2 (12:05→21:18)
[2020-01-18] MEDS: Ascorbic Acid 500 mg Chewable Tablet PO SCH ×2 (12:05→15:52)
[2020-01-18] MEDS: Aspirin 81 mg Enteric Coated Tablet PO SCH (12:05)
[2020-01-18] MEDS: Isosorbide Mononitrate 20 MG TAB PO SCH ×2 (12:05→21:18)
[2020-01-18] MEDS: Rivaroxaban 15 MG TAB PO SCH ×2 (12:05→15:53)
[2020-01-18] MEDS: DorzolamidE/Timolol 2%/0.5% Ophth Soln 10 ml Bottle EA EYE SCH ×2 (12:05→21:19)
[2020-01-18] MEDS: Furosemide 40 MG TAB PO SCH (12:05)
--- NOTE | 2020-01-18 12:13 | DIS ---
DATE OF ADMISSION: 01/14/2020 DATE OF DISCHARGE: 01/18/2020 PRIMARY CARE PROVIDER: Hardeep Al MD DISCHARGE DIAGNOSES: 1. Acute metabolic encephalopathy secondary to urinary tract infection. 2. Hypercalcemia, most likely secondary to vitamin D intake. 3. Acute on chronic stage 3 renal failure. CONDITION OF PATIENT ON THE DAY OF DISCHARGE: Stable. I assessed Ms. Barraza on the day of discharge. She is nonverbal. Vital signs are stable. S1 and S2 are heard, regular. Lungs are clear to auscultation bilaterally. DISCHARGE MEDICATIONS: Vitamin D was discontinued. Cefdinir 300 mg 2 times a day, 20 doses. Otherwise, no change was made to her pre-admission home medications. HOSPITAL COURSE: Ms. Barraza is a pleasant 89-year-old lady who was admitted to [facility] on January 14, 2020, for hypercalcemia, acute metabolic encephalopathy, and urinary tract infection. She was treated with intravenous Zosyn. Urine cultures grew more than 3 gram-negative rods, indicating probable contamination. The patient was switched to oral cephalosporin. Her creatinine worsened during this hospitalization. It is 1.77 on the day of discharge. I am giving her 500 mL normal saline bolus prior to discharge. She was advised to have her creatinine checked in 3 to 5 days. On the day of discharge, she has white count 7900, hemoglobin 9.9, and platelet count 212,000. Sodium 140, potassium 3.2 which is being replaced, creatinine 1.77, and calcium 11.0. She was also advised to have her calcium level checked in about a week. Her calcium at the time of admission was 12.3. She received calcitonin and bisphosphonates during this hospitalization, in addition to discontinuing vitamin D. COVID-19 test was negative. Many thanks for allowing me to participate in your patient's care. Please feel free to contact me with any questions or concerns. DIET: Heart healthy and low-sodium. ACTIVITY: As tolerated. DISCHARGE DESTINATION: To the Shelter, from where she was admitted to the hospital. TIME SPENT: Total amount of time spent coordinating this discharge: 32 minutes. Job ID: [id number]
--- NOTE | 2020-01-18 15:09 | PDOC.HOSPP ---
- Subjective Encounter Date: 01/18/20 Encounter Time: 15:07 Subjective: Patient was seen for follow-up regarding urinary tract infection. Patient is lethargic, nonverbal, could not complete review of systems. - Objective Vital Signs & Weight: Vital Signs (12 hours) Temp Pulse Resp BP Pulse Ox 01/18/20 11:48 98.0 F 84 16 109/51 L 98 01/18/20 07:27 99.3 F 92 18 128/58 L 99 01/18/20 03:45 97.5 F L 88 18 141/79 H 100 Weight Admit Weight 168 lb 14.4 oz Weight 169 lb 11.2 oz I&O: 01/17/20 01/18/20 01/19/20 06:59 06:59 06:59 Intake Total 1390 320 Output Total 575 750 Balance 815 -430 Result Diagrams: 01/18/20 04:02 01/18/20 14:15 Additional Labs: Accuchecks 01/18/20 01/17/20 01/17/20 06:23 20:40 16:36 POC Glucose 166 H 227 H 194 H 01/17/20 11:01 POC Glucose 197 H Labs and MAR were reviewed by me EKG Reviewed by me: Yes (Telemetry: Atrial fibrillation) Hospitalist ROS - Review of Systems ROS unobtainable: due to mental status - Medication Medications: Active Medications Generic Name Dose Route Start Last Admin Trade Name Freq PRN Reason Stop Dose Admin Ascorbic Acid 500 mg 01/16/20 09:00 01/18/20 12:05 Vitamin C PO Not Given DAILY [facility] Aspirin 81 mg 01/16/20 09:00 01/18/20 12:05 Ecotrin PO Not Given DAILY [facility] Atorvastatin Calcium 10 mg 01/15/20 21:00 01/17/20 21:42 Lipitor PO 10 mg HS LILIANA Administration Carvedilol 6.25 mg 01/15/20 21:00 01/18/20 12:05 Coreg PO Not Given BID [facility] Dorzolamide/Timolol 1 drop 01/15/20 21:00 01/18/20 12:05 Cosopt 2-0.5% Ophth Soln EA EYE Not Given BID [facility] Furosemide 40 mg 01/16/20 09:00 01/18/20 12:05 Lasix PO Not Given 0900 [facility] Glipizide 2.5 mg 01/16/20 08:00 01/18/20 12:04 Glucotrol Xl PO Not Given QAM-WM [facility] Hydralazine HCl 50 mg 01/16/20 08:00 01/18/20 12:04 Apresoline PO Not Given TID-WM LILIANA Insulin Human Lispro 0 units 01/14/20 17:20 01/18/20 06:22 Humalog SC 2 unit .MODERATE SLIDING SC PRN Administration Moderate Correctional Scale Insulin Human Lispro 0 units 01/14/20 17:20 01/17/20 21:59 Humalog SC 2 unit .BEDTIME SLIDING SC PRN Administration Bedtime Correctional Scale Isosorbide Mononitrate 10 mg 01/15/20 21:00 01/18/20 12:05 Ismo PO Not Given BID [facility] Latanoprost 1 drop 01/15/20 21:00 01/17/20 21:39 Xalatan 0.005% Ophth Soln EA EYE 1 drop HS LILIANA Administration Metolazone 2.5 mg 01/17/20 09:00 01/17/20 08:40 Zaroxolyn PO 2.5 mg MWF LILIANA Administration Pantoprazole Sodium 40 mg 01/15/20 09:00 01/18/20 12:05 Protonix PO Not Given DAILY [facility] Rivaroxaban 15 mg 01/16/20 08:00 01/18/20 12:05 Xarelto PO Not Given QAM-WM [facility] Sertraline HCl 100 mg 01/16/20 09:00 01/18/20 12:05 Zoloft PO Not Given DAILY [facility] Sodium Chloride 10 ml 01/14/20 17:06 01/17/20 08:41 Flush - Normal Saline IVF 10 ml Q12HR PRN Administration Saline Flush - Exam Eye: anicteric sclera ENT: dry oral mucosa Neck: supple Heart: RRR Respiratory: CTAB Gastrointestinal: soft, non-tender Neurological - other findings: Unable to assess Psychiatric: lethargic Hosp A/P (1) UTI (urinary tract infection) Status: Acute (2) Hypercalcemia Code(s): E83.52 - HYPERCALCEMIA Status: Acute (3) Acute worsening of stage 3 chronic kidney disease Code(s): N18.3 - CHRONIC KIDNEY DISEASE, STAGE 3 (MODERATE) Status: Acute (4) Diabetes mellitus type 2, insulin dependent Code(s): E11.9 - TYPE 2 DIABETES MELLITUS WITHOUT COMPLICATIONS; Z79.4 - LONG-TERM (CURRENT) USE OF INSULIN Status: Chronic (5) Hyperlipidemia Code(s): E78.5 - HYPERLIPIDEMIA, UNSPECIFIED Status: Chronic Qualifiers: Hyperlipidemia type: unspecified Qualified Code(s): E78.5 - Hyperlipidemia , unspecified (6) Hypertension Code(s): I10 - ESSENTIAL (PRIMARY) HYPERTENSION Status: Chronic Qualifiers: Hypertension type: essential hypertension Qualified Code(s): I10 - Essential (primary) hypertension (7) Chronic combined systolic and diastolic CHF, 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 Hypercalcemia was most likely secondary to vitamin D use. Calcium level is 11 today. Patient has received another dose of calcitonin. Monitor vital signs and titrate antihypertensives as needed. Chronic kidney disease stage III worsening, furosemide dose was decreased yesterday. However, creatinine continue to rise. She has received 500 mill normal saline bolus with improvement in her creatinine. Congestive heart failure NYHA class II, stable. Continue Accu-Cheks and insulin sliding scale. Original plan was to discharge her to custodial on oral antibiotics. However , she has been lethargic and unable to take oral medications. Discharge was held. Replace potassium.
[2020-01-18] MEDS ORDERED: Potassium Chloride 20 MEQ in Premix Bag 1 BAG IVPB SCH ×2 (15:15→15:30)
[2020-01-18] MEDS: Atorvastatin Calcium 10 MG TAB PO SCH (21:19)
[2020-01-18] MEDS: Latanoprost 0.005% Ophth Soln 2.5 ml Bottle EA EYE SCH (21:19)
[2020-01-19] MEDS: Piperacillin/Tazobactam 2.25 GM in Sodium Chloride 0.9% 100 ML IVPB SCH ×4 (00:27→17:29)
[2020-01-19 04:29] LABS: #Eosinphils 0.4 thou/uL (0.0-0.7); #Lymphocytes 1.4 thou/uL (1.20-3.40); #Monocytes 0.6 thou/uL (0.11-0.59); %Basophils 0.3 % (0.0-1.0); %Eosinophils 5.4 % (0.0-10.0); %Lymphocytes 18.8 % (21.0-51.0); %Monocytes 8.6 % (0.0-10.0); %Neutrophils 66.9 % (42.0-75.0); Hemoglobin 9.7 g/dL (12.0-16.0); Mean Corpuscular HGB CONC 31.5 g/dL (32.0-36.0); Mean Corpuscular Hemoglobin 31.6 pg (27.0-31.0); Platelet Count 195 thou/uL (130-400); RBC Distribution Width 14.5 % (11.5-14.5); Red Blood Cell (RBC) Count 3.07 mill/uL (4.20-5.40); White Blood Cell (WBC) Count 7.4 thou/uL (4.8-10.8)
[2020-01-19 05:01] LABS: Anion Gap 11 mmol/L (10-20); BUN (Urea Nitrogen) 64 mg/dL (9.8-20.1); Calc. Creatinine Clearance 31 mL/min (70-130); Calcium 10.8 mg/dL (7.8-10.44); Carbon Dioxide 36 mmol/L (23-31); Chloride 98 mmol/L (98-107); Estimated GFR-MDRD 40; Glucose 212 mg/dL (83-110); Potassium 3.4 mmol/L (3.5-5.1); Sodium 142 mmol/L (136-145)
[2020-01-19] MEDS: Rivaroxaban 15 MG TAB PO SCH (09:36)
[2020-01-19] MEDS: Furosemide 40 MG TAB PO SCH (09:36)
[2020-01-19] MEDS: hydrALAZINE 25 MG TAB PO SCH (09:39)
[2020-01-19] MEDS: Carvedilol 6.25 MG TAB PO SCH ×2 (09:42→20:56)
[2020-01-19] MEDS: Aspirin 81 mg Enteric Coated Tablet PO SCH (09:43)
[2020-01-19] MEDS ORDERED: Potassium Chloride 20 MEQ TAB PO SCH (09:45)
[2020-01-19] MEDS: Isosorbide Mononitrate 20 MG TAB PO SCH (09:45)
[2020-01-19] MEDS: DorzolamidE/Timolol 2%/0.5% Ophth Soln 10 ml Bottle EA EYE SCH ×2 (09:46→20:58)
[2020-01-19] MEDS: Ascorbic Acid 500 mg Chewable Tablet PO SCH (09:46)
--- NOTE | 2020-01-19 11:20 | RAD ---
PORTABLE CHEST: Date: 01/19/2020 PROVIDED CLINICAL HISTORY: Pulmonary edema. FINDINGS: Comparison with 01/14/2020. Cardiac silhouette remains enlarged. Atherosclerosis and median sternotomy changes are redemonstrated . Bilateral parahilar air space disease is redemonstrated. No large effusion or evidence for pneumoth orax. IMPRESSION: Stable radiographic appearance of the chest. POS: DENIS
[2020-01-19] MEDS: HumaLOG 300 UNITS/3 ML VIAL SC PRN (11:27)
[2020-01-19] MEDS: Sodium Chloride 0.9% 1,000 ML IV SCH (12:05)
--- NOTE | 2020-01-19 15:44 | PDOC.HOSPP ---
- Subjective Encounter Date: 01/19/20 Encounter Time: 11:30 Subjective: Patient is non-verbal. Doesn't have many complains. Calcium has improved today. She ate some of her breakfast this am - Objective Vital Signs & Weight: Vital Signs (12 hours) Temp Pulse Pulse Pulse Resp BP BP 01/19/20 15:36 97.9 F 77 20 01/19/20 14:09 75 80 138/81 01/19/20 12:00 98.5 F 79 20 01/19/20 09:42 136/72 01/19/20 09:39 77 01/19/20 08:00 97.8 F 77 20 01/19/20 05:51 98.5 F 79 20 BP BP Pulse Ox 01/19/20 15:36 163/86 H 01/19/20 14:09 149/63 H 01/19/20 12:00 157/64 H 98 01/19/20 09:42 01/19/20 09:39 01/19/20 08:00 156/70 H 97 01/19/20 05:51 152/67 H 99 Weight Admit Weight 168 lb 14.4 oz Weight 175 lb 12.8 oz I&O: 01/18/20 01/19/20 01/20/20 06:59 06:59 06:59 Intake Total 320 1540 Output Total 750 1750 600 Balance -430 -210 -600 Result Diagrams: 01/19/20 04:12 01/19/20 04:12 Additional Labs: Accuchecks 01/19/20 01/18/20 01/18/20 10:45 21:16 16:41 POC Glucose 209 H 266 H 167 H 01/18/20 11:06 POC Glucose 187 H Hospitalist ROS - Review of Systems Constitutional: denies: fever, chills - Medication Medications: Active Medications Generic Name Dose Route Start Last Admin Trade Name Freq PRN Reason Stop Dose Admin Ascorbic Acid 500 mg 01/16/20 09:00 01/19/20 09:46 Vitamin C PO 500 mg DAILY LILIANA Administration Aspirin 81 mg 01/16/20 09:00 01/19/20 09:43 Ecotrin PO 81 mg DAILY LILIANA Administration Atorvastatin Calcium 10 mg 01/15/20 21:00 01/18/20 21:19 Lipitor PO 10 mg HS LILIANA Administration Calcitonin [place] 300 units 01/18/20 11:15 01/18/20 15:54 [place] SC 01/20/20 11:16 300 unit ONE LILIANA Administration Carvedilol 6.25 mg 01/15/20 21:00 01/19/20 09:42 Coreg PO 6.25 mg BID LILIANA Administration Dorzolamide/Timolol 1 drop 01/15/20 21:00 01/19/20 09:46 Cosopt 2-0.5% Ophth Soln EA EYE 1 drop BID LILIANA Administration Glipizide 2.5 mg 01/16/20 08:00 01/19/20 09:36 Glucotrol Xl PO 2.5 mg QAM-WM LILIANA Administration Piperacillin Sod/Tazobactam 100 mls @ 200 mls/hr 01/18/20 18:00 01/19/20 12: 11 Sod 2.25 gm/ Sodium Chloride IVPB 100 mls Q6HR LILIANA Administration Sodium Chloride 1,000 mls @ 75 mls/hr 01/19/20 11:45 01/19/20 12:05 Normal Saline 0.9% IV 1,000 mls .[id number] LILIANA Administration Insulin Human Lispro 0 units 01/14/20 17:20 01/19/20 11:27 Humalog SC 4 unit .MODERATE SLIDING SC PRN Administration Moderate Correctional Scale Insulin Human Lispro 0 units 01/14/20 17:20 01/17/20 21:59 Humalog SC 2 unit .BEDTIME SLIDING SC PRN Administration Bedtime Correctional Scale Latanoprost 1 drop 01/15/20 21:00 01/18/20 21:19 Xalatan 0.005% Ophth Soln EA EYE 1 drop HS LILIANA Administration Metolazone 2.5 mg 01/17/20 09:00 01/17/20 08:40 Zaroxolyn PO 2.5 mg MWF LIL[facility]NA Administration Pantoprazole Sodium 40 mg 01/15/20 09:00 01/19/20 09:43 Protonix PO 40 mg DAILY LILIANA Administration Rivaroxaban 15 mg 01/16/20 08:00 01/19/20 09:36 Xarelto PO 15 mg QAM-WM LILIANA Administration Sertraline HCl 100 mg 01/16/20 09:00 01/19/20 09:42 Zoloft PO 100 mg DAILY LILIANA Administration Sodium Chloride 10 ml 01/14/20 17:06 07/31/20 08:41 Flush - Normal Saline IVF 10 ml Q12HR PRN Administration Saline Flush - Exam General Appearance: NAD, awake alert General - other findings: doesn't verbalize much Eye: PERRL, anicteric sclera ENT: normocephalic atraumatic, no oropharyngeal lesions Neck: no JVD Heart: RRR, no murmur, no gallops, no rubs Respiratory: CTAB, no wheezes, no rales, no ronchi Gastrointestinal: soft, non-tender, non-distended, normal bowel sounds Extremities: no cyanosis, no clubbing, no edema Skin: normal turgor, no lesions, no rashes Hosp A/P - Plan This is an 89 year old female who presented with hypercalcemia Hypercalcemia - possibly from vitamin D toxicity - calcium has improved to 10.8. She is s/p calcitonin - will continue with IV fluids - PTh level was low, vitamin D level was 145, likely was higher on admission. Unable to check PTHRP here GUI - creatinine has improved to 1.5. Will continue IV fluids for now Macrocytic anemia - stable. B12/folate, TSH normal Hypertension - hold lasix due to GUI. Hold hydralazine and imdur - if BP starts increasing > 170, will resume imdur Hypokalemia - potassium 3.4, given 20 meq of potassium, will replace DVT prophylaxis: xarelto Code status: full code
[2020-01-19] MEDS: Atorvastatin Calcium 10 MG TAB PO SCH (20:56)
[2020-01-19] MEDS: Latanoprost 0.005% Ophth Soln 2.5 ml Bottle EA EYE SCH (20:59)
[2020-01-20] MEDS: Piperacillin/Tazobactam 2.25 GM in Sodium Chloride 0.9% 100 ML IVPB SCH ×3 (00:22→11:31)
[2020-01-20] MEDS: Sodium Chloride 0.9% 1,000 ML IV SCH ×2 (05:56→11:30)
[2020-01-20] MEDS: Carvedilol 6.25 MG TAB PO SCH ×2 (09:14→20:02)
[2020-01-20] MEDS: Aspirin 81 mg Enteric Coated Tablet PO SCH (09:14)
[2020-01-20] MEDS: Ascorbic Acid 500 mg Chewable Tablet PO SCH (09:14)
[2020-01-20] MEDS: Rivaroxaban 15 MG TAB PO SCH (09:14)
[2020-01-20] MEDS: Metolazone 2.5 MG TAB PO SCH (09:14)
[2020-01-20] MEDS: DorzolamidE/Timolol 2%/0.5% Ophth Soln 10 ml Bottle EA EYE SCH ×2 (09:17→20:04)
[2020-01-20] MEDS ORDERED: Isosorbide Mononitrate 20 MG TAB PO SCH (10:00)
[2020-01-20 10:02] LABS: Mean Corpuscular HGB CONC 31.3 g/dL (32.0-36.0); Mean Corpuscular Hemoglobin 31.5 pg (27.0-31.0); Mean Platelet Volume 7.6 fL (7.4-10.4); Platelet Count 182 thou/uL (130-400); Red Blood Cell (RBC) Count 3.18 mill/uL (4.20-5.40); White Blood Cell (WBC) Count 7.6 thou/uL (4.8-10.8)
[2020-01-20 10:23] LABS: ALT (SGPT) 11 U/L (8-55); AST (SGOT) 22 U/L (5-34); Albumin 3.2 g/dL (3.4-4.8); Alkaline Phosphatase 122 U/L (40-110); Anion Gap 12 mmol/L (10-20); BUN (Urea Nitrogen) 36 mg/dL (9.8-20.1); Bilirubin, Total 0.5 mg/dL (0.2-1.2); Calc. Creatinine Clearance 41 mL/min (70-130); Calcium 9.7 mg/dL (7.8-10.44); Carbon Dioxide 31 mmol/L (23-31); Chloride 98 mmol/L (98-107); Estimated GFR-MDRD 53; Globulin 3.9 g/dL (2.4-3.5); Glucose 105 mg/dL (83-110); Potassium 3.1 mmol/L (3.5-5.1); Protein, Total 7.1 g/dL (6.0-8.3); Sodium 138 mmol/L (136-145)
[2020-01-20 10:45] LABS: CKMB 0.9 ng/mL (0-6.6)
[2020-01-20] MEDS ORDERED: Potassium Chloride 20 MEQ TAB PO SCH (10:45)
[2020-01-20] MEDS ORDERED: hydrALAZINE 25 MG TAB PO SCH ×2 (16:30→21:00)
--- NOTE | 2020-01-20 17:52 | PDOC.HOSPP ---
- Subjective Encounter Date: 01/20/20 Encounter Time: 10:00 Subjective: The patient has no complaints. She did not eat much of her breakfast. She does not know the date, thinks the month is June - Objective Vital Signs & Weight: Vital Signs (12 hours) Temp Pulse Resp BP Pulse Ox 01/20/20 15:03 97.9 F 72 16 161/78 H 95 01/20/20 11:27 98.4 F 97 16 158/112 H 93 L 01/20/20 09:10 98.6 F 98 16 185/90 H 99 Weight Admit Weight 168 lb 14.4 oz Weight 174 lb 14.4 oz I&O: 01/19/20 01/20/20 01/21/20 06:59 06:59 06:59 Intake Total 1540 1485 Output Total 1750 2350 650 Balance -210 -865 -650 Result Diagrams: 01/20/20 09:39 01/20/20 09:39 Additional Labs: Accuchecks 01/20/20 01/20/20 01/20/20 17:32 10:51 05:56 POC Glucose 184 H 115 H 116 H 01/19/20 01/19/20 20:50 17:05 POC Glucose 128 H 112 H Hospitalist ROS - Review of Systems Constitutional: denies: fever, chills - Medication Medications: Active Medications Generic Name Dose Route Start Last Admin Trade Name Blakeq PRN Reason Stop Dose Admin Ascorbic Acid 500 mg 01/16/20 09:00 01/20/20 09:14 Vitamin C PO 500 mg DAILY [facility] Administration Aspirin 81 mg 01/16/20 09:00 01/20/20 09:14 Ecotrin PO 81 mg DAILY [facility] Administration Atorvastatin Calcium 10 mg 01/15/20 21:00 01/19/20 20:56 Lipitor PO 10 mg HS LILIANA Administration Carvedilol 6.25 mg 01/15/20 21:00 01/20/20 09:14 Coreg PO 6.25 mg BID LILIANA Administration Dorzolamide/Timolol 1 drop 01/15/20 21:00 01/20/20 09:17 Cosopt 2-0.5% Ophth Soln EA EYE 1 drop BID LILIANA Administration Glipizide 2.5 mg 01/16/20 08:00 01/20/20 09:49 Glucotrol Xl PO Not Given QAM-WM [facility] Hydralazine HCl 25 mg 01/20/20 16:30 01/20/20 16:53 Apresoline PO 01/20/20 18:00 25 mg NOW LILIANA Administration Insulin Human Lispro 0 units 01/14/20 17:20 01/19/20 11:27 Humalog SC 4 unit .MODERATE SLIDING SC PRN Administration Moderate Correctional Scale Insulin Human Lispro 0 units 01/14/20 17:20 01/17/20 21:59 Humalog SC 2 unit .BEDTIME SLIDING SC PRN Administration Bedtime Correctional Scale Latanoprost 1 drop 01/15/20 21:00 01/19/20 20:59 Xalatan 0.005% Ophth Soln EA EYE 1 drop HS LILIANA Administration Metolazone 2.5 mg 01/17/20 09:00 01/20/20 09:14 Zaroxolyn PO 2.5 mg MWF [facility] Administration Pantoprazole Sodium 40 mg 01/15/20 09:00 01/20/20 09:14 Protonix PO 40 mg DAILY [facility] Administration Rivaroxaban 15 mg 01/16/20 08:00 01/20/20 09:14 Xarelto PO 15 mg QAM-WM [facility]NA Administration Sertraline HCl 100 mg 01/16/20 09:00 01/20/20 09:14 Zoloft PO 100 mg DAILY [facility] Administration Sodium Chloride 10 ml 01/14/20 17:06 01/17/20 08:41 Flush - Normal Saline IVF 10 ml Q12HR PRN Administration Saline Flush - Exam General Appearance: NAD, awake alert Eye: PERRL, anicteric sclera ENT: normocephalic atraumatic, no oropharyngeal lesions Neck: no JVD Heart: RRR, no murmur, no gallops, no rubs Respiratory: CTAB, no wheezes, no rales, no ronchi Gastrointestinal: soft, non-tender, non-distended, normal bowel sounds Extremities: no cyanosis, no clubbing, no edema Skin: normal turgor, no lesions, no rashes Neurological: cranial nerve grossly intact, normal sensation to touch, no focal deficits, no new deficit Musculoskeletal: normal tone, normal strength, no muscle wasting Psychiatric: normal affect, normal behavior, A&O x 3, oriented to person Hosp A/P - Plan This is an 89 year old female who presented with hypercalcemia Hypercalcemia - possibly from vitamin D toxicity - resolved. Calcium 9.8, s/p calcitonin - PTh level was low, vitamin D level was 145, likely was higher on admission. Unable to check PTHRP here GUI - creatinine has improved to 1.17. Will stop IV fluids Macrocytic anemia - stable. B12/folate, TSH normal Hypertension - resumed imdur - will resume hydralazine at 25 mg tid - continue to hold lasix Hypokalemia - potassium 3.1, replaced and recheck today Questionable UTI - patient was treated with zosyn for five days, urine culture showed likely contaminant - will discontinue zosyn Dispo: possibly d/c tomorrow DVT prophylaxis: xarelto Code status: full code
[2020-01-20 18:33] LABS: Potassium 3.5 mmol/L (3.5-5.1)
[2020-01-20 19:00] LABS: CKMB 0.7 ng/mL (0-6.6)
[2020-01-20] MEDS: Isosorbide Mononitrate 20 MG TAB PO SCH (20:01)
[2020-01-20] MEDS: Latanoprost 0.005% Ophth Soln 2.5 ml Bottle EA EYE SCH (20:02)
[2020-01-20] MEDS: Atorvastatin Calcium 10 MG TAB PO SCH (20:02)
[2020-01-21] MEDS: Aspirin 81 mg Enteric Coated Tablet PO SCH (08:25)
[2020-01-21] MEDS: Ascorbic Acid 500 mg Chewable Tablet PO SCH (08:25)
[2020-01-21] MEDS: Rivaroxaban 15 MG TAB PO SCH (08:27)
[2020-01-21] MEDS: Carvedilol 6.25 MG TAB PO SCH (08:27)
[2020-01-21] MEDS: Isosorbide Mononitrate 20 MG TAB PO SCH (08:27)
[2020-01-21] MEDS: DorzolamidE/Timolol 2%/0.5% Ophth Soln 10 ml Bottle EA EYE SCH (08:28)
[2020-01-21] MEDS: hydrALAZINE 25 MG TAB PO SCH ×2 (08:38→15:36)
[2020-01-21 10:47] LABS: Anion Gap 10 mmol/L (10-20); BUN (Urea Nitrogen) 24 mg/dL (9.8-20.1); Calc. Creatinine Clearance 44 mL/min (70-130); Calcium 9.1 mg/dL (7.8-10.44); Carbon Dioxide 29 mmol/L (23-31); Chloride 97 mmol/L (98-107); Estimated GFR-MDRD 58; Glucose 203 mg/dL (83-110); Potassium 3.2 mmol/L (3.5-5.1); Sodium 133 mmol/L (136-145)
--- NOTE | 2020-01-21 11:02 | PQF ---
CLINICAL DOCUMENTATION CLARIFICATION FORM: Dear Dr. Aisha Adams Date: 01/21/2020 Please exercise your independent, professional judgment in responding to the clarification form. Clinical indicators are provided on the bottom of this form for your review. Please check appropriate box(es): [ ] Protein Calorie Malnutrition: [ ] Mild [ ] Moderate [ X ] Severe [ ] Other Malnutrition (please specify) __ [ ] Other diagnosis [ ] Unable to determine In addition, please specify: Present on Admission (POA): [ X ] Yes [ ] No [ ] Unable to determine For continuity of documentation, please document condition throughout progress notes and discharge summary. Thank You. To be completed by CDI/Coding staff for physician review: CLINICAL INDICATORS - SIGNS / SYMPTOMS / LABS / RESULTS AND LOCATION IN MR H&P 01/13 ([facility]) According to the ER notes, the pt was sent for abnormal labs, specifically a calcium level of 12 with associated decreased appetite and lethargy. 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 RISK FACTORS / RESULTS AND LOCATION IN MR ER Record 01/13: PMH: Failure to thrive. H&P 01/13 ([facility]): 89 yo with PMH significant for CHF, OH, HTN, DM 2, CVA. According to the ER notes, the pt was sent for abnormal labs, specifically a calcium level of 12 with associated decreased appetite and lethargy. PE:Neurologic: Has generalized weakness throughout and was reportedly bed-bound at the [facility]. TREATMENT / RESULTS AND LOCATION IN MR Order Dietary consult 01/13 Order 01/14: Diet supplement: Nepro TID after meals. 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 Moderate Malnutrition (in chronic illness) Energy Intake: <75% of estimated energy requirement for =1 month Weight Loss: 5%/1 month; 7.5%/3 months; 10%/6 months; 20%/1 year Other: mild body fat loss; mild muscle mass loss; mild fluid accumulation Severe Malnutrition (in chronic illness) Energy Intake: =75% of estimated energy requirement for =1 month Weight Loss: >5%/1 month; >7.5%/3 months; >10%/6 months; >20%/1 year Other: severe body fat loss; severe muscle mass loss; severe fluid accumulation; 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
[2020-01-21] MEDS: HumaLOG 300 UNITS/3 ML VIAL SC PRN (11:28)
[2020-01-21] MEDS ORDERED: Potassium Chloride 20 MEQ TAB PO SCH (11:45)
[2020-01-21 13:35] VITALS: BMI 32.1
[2020-01-21 15:35] VITALS: BP 129/60; TEMP 98.8
--- NOTE | 2020-01-22 09:05 | DIS ---
DATE OF ADMISSION: 01/14/2020 DATE OF DISCHARGE: 01/21/2020 ADDENDUM: This is an addendum to Dr. Andrew's discharge summary. HOSPITAL COURSE: 1. Hypercalcemia: This was most likely secondary to vitamin D toxicity. Her PTH level is low. Her vitamin D level came back as 145. Her vitamin D supplementation should be discontinued on discharge. She did receive calcitonin while in the hospital and her calcium improved to 9.1 at the time of discharge. Her mental status is back to her baseline. 2. Hyponatremia: The patient had a sodium of 133, which was slightly diminished from her sodium on the 3rd, which was 138. This may be secondary to her metolazone. Consider repeat BMP in a week. 3. Hypokalemia: The patient's potassium was 3.2 on the day of discharge. She was given potassium supplementation; she will have this rechecked in a week. 4. Acute kidney injury: The patient's creatinine improved to 1.08 at the time of discharge. She was given IV fluids. She was resumed on her home dose of hydralazine and Imdur. Continue her metolazone 3 times a week, but hold any Lasix and take only as needed. 5. UTI: The patient was treated with Zosyn for 5 days. However, her urine culture grew more than three organisms indicating likely contaminant. Further treatment of antibiotics were discontinued. DISCHARGE PHYSICAL EXAMINATION: VITAL SIGNS: Temperature 98.5, heart rate 82, respiratory rate 17, O2 saturation 98% on room air, and blood pressure 159/79. GENERAL: The patient is alert. She is nonverbal. She follows minimal commands. She does not have any complaints. CVS: The patient has a systolic murmur on the left second intercostal space. LUNGS: Clear to auscultation bilaterally. ABDOMEN: Positive bowel sounds. Soft, nontender, and nondistended. EXTREMITIES: The patient moves all 4 extremities. Sensation is intact in all 4 extremities. She has no edema. PERTINENT LABS ON DISCHARGE: CBC on 01/19: Hemoglobin 10.0, hematocrit 32.0, and platelet count 182. BMP on 01/20: Sodium 133, potassium 3.2, chloride 97, and creatinine 1.08. Troponin I: Peaked at 0.043. Vitamin D 25-OH: 145. Folate: Normal. PTH: 4.4. TSH: 1.11. UA: 500 leukocyte esterase, 1+ nitrite, 4 to 6 white blood cells. COVID PCR serology: Negative. IMAGING DATA: Chest x-ray on 01/13: Shows mild CHF. Renal ultrasound on 01/13: Shows no hydronephrosis. Bilateral renal cortical thinning. Possible complex cyst in the right renal cortex. Chest x-ray 01/18: Stable radiographic appearance of the chest. Echo on 01/19: Shows gvyanzat-hi-tnjisl fibrocalcific sclerosis of aortic valve with evidence of severe aortic stenosis with a valve area of 0.90 cm. Mtqhzcmy-ka-epswin TR. EF is 55% to 60% percent. Right ventricular global systolic function is moderately reduced. DISCHARGE MEDICATIONS: All home medications were resumed. DISCHARGE INSTRUCTIONS: The patient should follow up with her PCP in a week. She should have a repeat BMP done in a week to follow up her hypokalemia. She should follow up with a rehabilitation liaison for her severe aortic stenosis. Job ID: [id number] [facility]
== END 2020-01-21 16:15 | DRG 689 ==
LOC: ERS 14:33 → 2NO 19:20 → OBSVTOIN 19:20
PROVIDERS: ADMIT Internal Medicine; ATTEND Internal Medicine
DX: N39.0 Urinary tract infection, site not specified (principal); G93.41 Metabolic encephalopathy; E43 Unspecified severe protein-calorie malnutrition; I13.0 Hypertensive heart and chronic kidney disease with heart failure and stage 1 through stage 4 chronic kidney disease, or unspecified chronic kidney disease; I50.42 Chronic combined systolic (congestive) and diastolic (congestive) heart failure; N17.9 Acute kidney failure, unspecified; E83.52 Hypercalcemia; N18.3 Chronic kidney disease, stage 3 (moderate); Z20.828 Contact with and (suspected) exposure to other viral communicable diseases; I27.20 Pulmonary hypertension, unspecified; I73.9 Peripheral vascular disease, unspecified; R62.7 Adult failure to thrive; F41.9 Anxiety disorder, unspecified; E87.6 Hypokalemia; D63.1 Anemia in chronic kidney disease; K21.9 Gastro-esophageal reflux disease without esophagitis; E78.5 Hyperlipidemia, unspecified; I48.91 Unspecified atrial fibrillation; Z79.01 Long term (current) use of anticoagulants; Z90.49 Acquired absence of other specified parts of digestive tract; I25.2 Old myocardial infarction; Z86.711 Personal history of pulmonary embolism; Z88.8 Allergy status to other drugs, medicaments and biological substances; Z88.1 Allergy status to other antibiotic agents; Z79.4 Long term (current) use of insulin; Z68.32 Body mass index [BMI] 32.0-32.9, adult
CPT/HCPCS: 36415; 36416; 71045; 76770; 80048; 80053; 81003; 81015; 82306; 82553; 82607; 82746; 83036; 83735; 83880; 83970; 84100; 84443; 84484; 85025; 85027; 85610; 85730; 87086; 87635; 93005; 93306; 94664; 96361; 96365; 96375; J0630; J1940; J2543; J3480; J3489; J3490; U0003